=== PATIENT | male | born 1935 | race Caucasian/White ===

== ENCOUNTER 2016-08-19 19:21 | Inpatient (IN) | payer MEDICARE, OTHER ==
[2016-08-19] VITALS (18 sets, daily range): BP systolic 137–200; BP diastolic 63–100; PULSE 82–94; RESP 12–24; TEMP 97.9; O2SAT 93–100
[~2016-08-19] VITALS: Ht 182.9 cm; Wt 74.8 kg
[~2016-08-19 19:21] MED LIST: AMIO200T PO; ASPI325T PO; ATOR20TA42 PO; AVOD0.5C PO; CAPT12.52 PO; CENTTAB9; SYNT112T PO
[2016-08-19] MEDS ORDERED: SODIUM CHLOR 0.9% 1000 ML INJ 1,000 ML IV ONE (19:26)
[2016-08-19] MEDS ORDERED: MISCELLANEOUS NURSING INFORMATION XX PRN (19:30)
[2016-08-19] MEDS ORDERED: ALTEPLASE BOLUS 9 MG/9 ML SYR IV ONE (19:30)
[2016-08-19] MEDS ORDERED: SODIUM CHLORIDE 0.9% 50 ML BAG IVF ONE (19:30)
[2016-08-19] MEDS ORDERED: ONDANSETRON HCL 4 MG/2 ML VIAL ONE ×2 (19:38→22:34)
--- NOTE | 2016-08-19 19:40 | RADRPT ---
EXAM DATE/TIME: 08/19/2016 19:31 This report includes an Addendum and supersedes previous reports for this exam. [facility] COMPARISON: No previous studies available for comparison. INDICATIONS : Stroke alert; RADIATION DOSE: 50.04 CTDIvol (mGy) This report was called by Dr. Bernard to Dr. Morales at 7: 35 PM on August 19, 2016. MEDICAL HISTORY : Non-responsive. SURGICAL HISTORY : Non-responsive. ENCOUNTER: Initial ACUITY: 1 day PAIN SCALE: Non-responsive LOCATION: cranial TECHNIQUE: Multiple contiguous axial images were obtained of the head. Using automated exposure control and adj ustment of the mA and/or kV according to patient size, radiation dose was kept as low as reasonably a chievable to obtain optimal diagnostic quality images. FINDINGS: There are calcifications of the internal carotid, distal vertebral and bilateral middle cerebral mckenna win. There is mild atrophy. No signs of acute infarct, intracranial hemorrhage, or mass. Remote righ t caudate lacunar infarct. No fractures are seen. There is what appears to represent prominent callus formation and a somewhat destructive appearance of the right mandibular angle. Is there a history of remote trauma? Patchy white matter disease is present, nonacute in appearance. CONCLUSION: No signs of acute infarct, hemorrhage or mass. Abnormal right mandible as described above. Celestine Bernard MD on August 19, 2016 at 19:35 Board Certified Radiologist. This report was verified electronically. ADDENDUM: On further review there is increased attenuation at the level of the right middle cerebral artery in addition to the vascular calcification which can reflect hyperdense thrombus, a CT angiogram is pendi ng. Celestine Bernard MD on August 19, 2016 at 20:23 Board Certified Radiologist. This report was verified electronically.
[2016-08-19] MEDS ORDERED: niCARdipine INJ 25 MG in SODIUM CHLOR 0.9% 250 ML INJ 250 ML IV SCH (19:45)
[2016-08-19] MEDS ORDERED: ALTEPLASE DRIP IV ONE (19:45)
[2016-08-19 19:47] LABS: I-STAT POTASSIUM 3.9 MMOL/L (3.5-4.9)
[2016-08-19 19:49] LABS: AUTOMATED NEUTROPHIL # 2.5 TH/MM3 (1.8-7.7); BASOPHIL % 0.5 % (0.0-2.0); EOSINOPHIL # 0.3 TH/MM3 (0-0.4); EOSINOPHIL % 7.1 % (0.0-4.0); HEMATOCRIT 40.2 % (39.0-51.0); HEMO FLAGS DIFF FINAL; LYMPH % 29.6 % (9.0-44.0); LYMPHOCYTE # 1.4 TH/MM3 (1.0-4.8); MEAN CORPUSCULAR HEMOGLOBIN 32.5 PG (27.0-34.0); MEAN CORPUSCULAR HGB CONC 34.6 % (32.0-36.0); MONO % 10.4 % (0.0-8.0); NEUT % 52.4 % (16.0-70.0); PLATELET COUNT 144 TH/MM3 (150-450); RED BLOOD COUNT 4.27 MIL/MM3 (4.50-5.90); RED CELL DISTRIBUTION WIDTH 13.6 % (11.6-17.2); WHITE BLOOD COUNT 4.8 TH/MM3 (4.0-11.0)
[2016-08-19 19:51] LABS: APTT (PATIENT) 26.4 SEC (24.3-30.1); PROTHROMBIN TIME - PATIENT 11.4 SEC (9.8-11.6)
[2016-08-19] MEDS: SODIUM CHLOR 0.9% 1000 ML INJ 1,000 ML IV SCH ×2 (20:00→23:04)
--- NOTE | 2016-08-19 20:03 | PD ---
HPI Chief Complaint: Stroke Alert Time Seen by Provider: 19:26 Travel History International Travel<30 days: No Contact w/Intl Traveler<30days: No History of Present Illness HPI The patient is a 81-year-old I's by EMS. Approximately 1 hour prior to ER arrival the patient experienced a sudden onset of weakness in the left arm and leg. He fell to the ground. He was able to call his son who called EMS. On scene EMS observed paralysis in the left arm with dysarthria. Vital signs were observed to be approximately 160/80 with a pulse of approximately 100. Fingerstick glucose was normal. No change in neurologic status was observed en route. Upon arrival to the ER the CT scan was obtained and risks benefits stories about was menstruation were discussed with patient as well as four family members. The patient denies chest pain in the ER. He did have one episode of vomiting was promptly suctioned and the oropharynx was cleared with resolution of nausea and reported subjective improvement. The patient denies chest pain. PFSH Past Medical History Arthritis: No Asthma: No Atrial Fibrillation: Yes Autoimmune Disease: No Blood Disorders: No Heart Rhythm Problems: No Cancer: No Cardiac Catheterization: Yes (JANUARY 1997) Cardiovascular Problems: Yes High Cholesterol: Yes Chemotherapy: No Chest Pain: No Congestive Heart Failure: No COPD: No Cerebrovascular Accident: No Diabetes: Yes Diminished Hearing: No Endocrine: No GERD: No Glaucoma: No Genitourinary: No Headaches: No Hepatitis: No Hiatal Hernia: No Hypertension: Yes Immune Disorder: No Kidney Stones: No Musculoskeletal: No Neurologic: No Psychiatric: No Reproductive: No Respiratory: No Immunizations Current: No Migraines: No Myocardial Infarction: Yes (X 2) Radiation Therapy: No Renal Failure: No Seizures: No Sickle Cell Disease: No Sleep Apnea: No Thyroid Disease: No Ulcer: No Past Surgical History Abdominal Surgery: No AICD: No Appendectomy: No Arteriovenous Shunt: No Cardiac Surgery: Yes Cholecystectomy: Yes Coronary Stent: Yes (X 24 JANUARY 1997) Ear Surgery: No Endocrine Surgery: No Eye Surgery: No Genitourinary Surgery: No Insulin Pump: No Joint Replacement: No Oral Surgery: No Pacemaker: No Thoracic Surgery: No Other Surgery: Yes Social History Alcohol Use: No Tobacco Use: No Substance Use: No Allergies-Medications (Allergen,Severity, Reaction): Coded Allergies: No Known Allergies (Verified , 12/2/13) Reported Meds & Prescriptions Reported Meds & Active Scripts Active Reported Aspirin 325 Mg Tab (Aspirin) 325 Mg Tab 325 Mg PO DAILY Synthroid (Levothyroxine Sodium) 112 Mcg Tab 112 Mcg PO DAILY TAKE ON AN EMPTY STOMACH Amiodarone Hcl (Amiodarone HCl) 200 Mg Tab 100 Mg PO DAILY Avodart (Dutasteride) 0.5 Mg Cap 0.5 Mg PO 3 TIMES A WEEK Centrum (Multivitamins) Tab Lipitor (Atorvastatin Calcium) 20 Mg Tab 20 Mg PO DAILY Capoten (Captopril) 12.5 Mg Tab 12.5 Mg PO DAILY Review of Systems ROS Limitations: Clinical Condition, Altered Mental Status Physical Exam Narrative GENERAL: 81-year-old male well-nourished well-developed SKIN: Warm and dry. HEAD: Atraumatic. Normocephalic. EYES: Pupils equal and round. No scleral icterus. No injection or drainage. ENT: No nasal bleeding or discharge. Mucous membranes pink and moist. Edentulous. NECK: Trachea midline. No JVD. CARDIOVASCULAR: Regular rate and rhythm. No murmur appreciated. RESPIRATORY: No accessory muscle use. Clear to auscultation. Breath sounds equal bilaterally. GASTROINTESTINAL: Abdomen soft, non-tender, nondistended. Hepatic and splenic margins not palpable. MUSCULOSKELETAL: No obvious deformities. No clubbing. No cyanosis. No edema. NEUROLOGICAL: NIHSS approximately 13. LUE flaccid. LUE with loss of sensation. RUE/RLE normal sensory motor function. Mild cerebellar ataxia on finger to nose exam. Mild slurring of speech. Mild aphasia. PSYCHIATRIC: Appropriate mood and affect; insight and judgment normal. Data Data Last Documented VS Vital Signs Date Time Temp Pulse Resp B/P Pulse Ox O2 Delivery O2 Flow Rate FiO2 08/19/16 19:48 100 Nasal Cannula 2.00 08/19/16 19:25 97.9 84 20 191/88 Orders Diet Npo (08/20/16 Breakfast) Activity Bed Rest (08/19/16 ) Electrocardiogram (08/19/16 ) I-Stat Creatinine (08/19/16 19:26) I-Stat Profile (08/19/16 19:26) Prothrombin Time / Inr (Pt) (08/19/16 19:26) Act Partial Throm Time (Ptt) (08/19/16 19:26) Complete Blood Count With Diff (08/19/16 19:26) Fibrinogen (08/19/16 19:26) Creatine Kinase (Cpk) (08/19/16 19:26) Troponin I (08/19/16 19:) Ua Includes Microscopic (08/19/16 19:26) Drug Screen, Random Urine (08/19/16 19:26) Type And Screen (08/19/16 19:) Ct Brain W/O Iv Contrast(Rout) (08/19/16 ) Chest, Single Ap (08/19/16 ) Consult Neurology (08/19/16 ) Blood Glucose (08/19/16 19:26) Ecg Monitoring (08/19/16:) Neuro Checks Q2HX12,Q4H (08/19/16 19:26) Nursing Bedside Swallow Assess .ONCE (08/19/16 19:26) Iv Access Insert/Monitor (08/19/16 19:26) NPO (08/19/16:) Oximetry (08/19/16:) Oxygen Administration (08/19/16:26) Sodium Chlor 0.9% 1000 Ml Inj (Ns 1000 M (08/19/16 19:26) Resp Oxygen Mendoza C Titrat 1-4 L (08/19/16:26) Cath For Specimen (08/19/16:) ^ Call Pharmacy (08/19/16 19:30) Nih Stroke Scale - Nihss .ONCE (08/19/16 19:30) Urinary Catheter Management SHERRELL.Q8H (08/19/16 19:30) Urinary Catheter Insert/Apply (08/19/16 19:30) ^ Anticoagulant Alert (08/19/16 19:30) ^ Post Infusion Restrictions (08/19/16 19:30) ^ Medication Alert (08/19/16 19:30) Vital Signs (Adult) .As directed (08/19/16 19:30) ^ Notify Dr: Blood Pressure (08/19/16 19:30) ^ Medication Alert (08/19/16 19:30) Alteplase Bolus (Activase Bolus) (08/19/16 19:30) Alteplase Drip (Activase Drip) (08/19/16 19:45) Sodium Chloride 0.9% Inj (Ns Inj) (12/28/16 19:30) Misc Nursing Information (08/19/16 19:30) Resp Oxygen Mendoza C Titrat 1-4 L (08/19/16 ) Ct Brain W/O Iv Contrast(Rout) (08/20/16 ) Nicardipine Inj (Cardene Inj) (08/19/16 19:45) Nicardipine Inj (Cardene Inj) (08/19/16 19:34) Ondansetron Inj (Zofran Inj) (08/19/16 19:38) Westergren Sedimentation Rate (08/19/16 20:02) Thyroid Stimulating Hormone (08/19/16 20:02) Free Thyroxine (T4) (08/19/16 20:02) Vitamin B12 (08/19/16 20:02) Ast (Sgot) (08/19/16 20:02) Alt (Sgpt) (08/19/16 20:02) Mri Brain W&W/O Contrast (08/19/16 20:02) Echo 2d Comp W/Dopp(Routine) (08/19/16 20:02) Holter Monitor Recording (08/19/16 20:02) ^ Narrow Fabric Loom Fixer / Telemetry (08/19/16 20:02) Sodium Chlor 0.9% 1000 Ml Inj (Ns 1000 M (08/19/16 20:00) Lipid Profile (08/19/16 20:02) ^ Other Nursing Orders (08/19/16 20:02) Cta Brain W Iv Contrast W 3d (08/19/16 20:02) Cta Neck W Iv Contrast W 3d (08/19/16 20:02) Folate, Serum (08/19/16 20:02) [place] (08/19/16 20:02) Iohexol 350 Inj (Omnipaque 350 Inj) (08/19/16 20:20) Admit Order (Ed Use Only) (08/19/16 20:21) Labs Laboratory Tests Test 08/19/16 08/19/16 19:24 19:50 White Blood Count 4.8 TH/MM3 Red Blood Count 4.27 MIL/MM3 Hemoglobin 13.9 GM/DL Bedside Hemoglobin 12.6 G/DL Hematocrit 40.2 % Bedside Hematocrit 37.0 % Mean Corpuscular Volume 94.0 FL Mean Corpuscular Hemoglobin 32.5 PG Mean Corpuscular Hemoglobin 34.6 % Concent Red Cell Distribution Width 13.6 % Platelet Count 144 TH/MM3 Mean Platelet Volume 8.2 FL Neutrophils (%) (Auto) 52.4 % Lymphocytes (%) (Auto) 29.6 % Monocytes (%) (Auto) 10.4 % Eosinophils (%) (Auto) 7.1 % Basophils (%) (Auto) 0.5 % Neutrophils # (Auto) 2.5 TH/MM3 Lymphocytes # (Auto) 1.4 TH/MM3 Monocytes # (Auto) 0.5 TH/MM3 Eosinophils # (Auto) 0.3 TH/MM3 Basophils # (Auto) 0.0 TH/MM3 CBC Comment DIFF FINAL Differential Comment Prothrombin Time 11.4 SEC Prothromb Time International 1.0 RATIO Ratio Activated Partial 26.4 SEC Thromboplast Time Fibrinogen 275 mg/dL Bedside Sodium 139 MMOL/L Bedside Potassium 3.9 MMOL/L Bedside Chloride 104 MMOL/L Bedside Blood Urea Nitrogen 15 MG/DL Bedside Creatinine 0.8 MG/DL Bedside Glucose 112 MG/DL Total Creatine Kinase 81 U/L Troponin I 0.03 NG/ML Blood Type AB POSITIVE Antibody Screen NEGATIVE Urine Color YELLOW Urine Turbidity CLEAR Urine pH 5.5 Urine Specific [place] 1.014 Urine Protein NEG mg/dL Urine Glucose (UA) NEG mg/dL Urine Ketones NEG mg/dL Urine Occult Blood NEG Urine Nitrite NEG Urine Bilirubin NEG Urine Urobilinogen LESS THAN 2.0 MG/DL Urine Leukocyte Esterase NEG Urine RBC 1 /hpf Urine WBC 1 /hpf Urine Bacteria RARE /hpf Urine Mucus FEW /lpf Microscopic Urinalysis Comment Urine Opiates Screen NEG Urine Barbiturates Screen NEG Urine Amphetamines Screen NEG Urine Benzodiazepines Screen NEG Urine Cocaine Screen NEG Urine Cannabinoids Screen NEG MDM Medical Screen Exam Complete: Yes Emergency Medical Condition: Yes Medical Record Reviewed: Yes EKG Prior to Arrival: Yes Differential Diagnosis Intracranial hemorrhage, ischemic stroke, hypoglycemia, intracranial mass, seizure, altered mental status due to metabolic disorder or infectious state Narrative Course The patient received TPA at approximately 7:45 PM. His NIH stroke scale based on my estimation is approximately 13. We had a discussion with the grandson and daughter as well as the patient's son and daughter. The risks benefits and alternatives of alteplase administration were discussed. The contraindication list was completed with the help of the daughter and grandson. Upon return from the CT scan room the patient had slightly improved articulation however a persistent left upper extremity paralysis and loss of sensation remained. The family members verbalized understanding of risks benefits and alternatives of alteplase administration. Cardene drip was initiated and blood pressure was within acceptable parameters at time of alteplase of administration. Dr. Bernard arrived in the patient's room at approximately 7:45 PM. The patient was monitored closely in the ER. He'll be admitted to the ICU for continuous monitoring. D/w Dr Flores for expansion envelope maker hand service. Critical Care Narrative Aggregate critical care time was 35 minutes. Time to perform other separately billable procedures was not included in the critical care time. My time did not include minutes spent treating any other patients simultaneously or on activities that did not directly contribute to the patient's treatment. The services I provided to this patient were to treat and/or prevent clinically significant deterioration that could result in: Permanent neurologic injury, uninformed consent, cardiopulmonary arrest I provided critical care services requiring my management, as noted below: Chart data review, documentation time, medication orders and management, vital sign assessments/reviewing monitor data, ordering and reviewing lab tests, ordering and interpreting/reviewing x-rays and diagnostic studies, care of the patient and discussion of the patient with the admitting physicians. Stroke Alert NIHSS NIH Stroke Scale Result: 13 NIHSS Time Completed: 19:[address] Phys[address] Communication [address] Bernard 726pm Diagnosis Diagnosis: Primary Impression: Stroke Qualified Code: I63.9 - Cerebrovascular accident (CVA), unspecified mechanism Admitting Physician Requests: Hang Martínez MD Aug 19, 2016 20:03
--- NOTE | 2016-08-19 20:09 | RADRPT ---
EXAM DATE/TIME: 08/19/2016 19:56 [facility] COMPARISON: No previous studies available for comparison. INDICATIONS : Stroke alert MEDICAL HISTORY : Prostate cancer, A fib SURGICAL HISTORY : Stent ENCOUNTER: Initial ACUITY: 1 day PAIN SCORE: Non-responsive. LOCATION: Bilateral chest FINDINGS: Cardiomegaly. No consolidation or effusion. Osseous structures are intact. CONCLUSION: No acute disease. Celestine Bernard MD on August 19, 2016 at 20:07 Board Certified Radiologist. This report was verified electronically.
[2016-08-19 20:14] LABS: BACTERIA, URINE RARE /hpf; BLOOD, URINE NEG (NEG); GLUCOSE,URINE NEG (NEG); KETONE, URINE NEG (NEG); MUCUS URINE FEW /lpf (OCC); NITRITE,URINE NEG (NEG); PH, URINE 5.5 (5.0-8.5); URINE COLOR YELLOW (YELLW/STRAW)
[2016-08-19 20:19] LABS: AMPHETAMINE, URINE NEG (NEG); BARBITURATES, URINE NEG (NEG); COCAINE, URINE NEG (NEG)
[2016-08-19] MEDS ORDERED: IOHEXOL 350 MG/ML 10 ML VIAL (for RAD DIAG) IV ONE (20:20)
--- NOTE | 2016-08-19 20:27 | MB ---
cc: ADARSH CAST DATE OF CONSULTATION 08/19/2016 REASON FOR CONSULTATION An 81-year-old right-handed man with a history of hypertension, hypercholesterolemia, prostate cancer with mets to the bones, cardiac stent, A fib, status post cardioversion, takes 325 aspirin a day, hypothyroidism. At about 06:30 today he evidently fell. He was brought into the ER as a stroke alert and found to be flaccid on the left arm with eyes deviation to the right and subsequently CT was read as negative for bleed and was given TPA here. I had talked to the ER physician over the phone and we agreed to go ahead and give tPA. No major contraindications were noted. Sinus rhythm is his EKG here. REVIEW OF SYSTEMS He denies any diabetes, CABG, renal, hepatic, pulmonary disease lupus, ulcer, seizure, prior stroke. SOCIAL HISTORY Not a smoker or drinker. He lives by himself. He usually drives. Pretty independent, quite sharp mentally. FAMILY HISTORY Negative for cancer, seizure or stroke. MEDICATIONS He takes 325 of aspirin a day. Other medications: Padding a list at this time. 1. Synthroid. 2. Amiodarone. 3. Avodart. 4. Centrum. 5. Lipitor. 6. Capoten. PHYSICAL EXAMINATION VITAL SIGNS: He is in sinus rhythm, 99. After being given blood pressure meds here he is 168/80. He was as high as 200. NECK: There were no carotid bruits. HEART: Regular rhythm at this time. I do not detect a murmur. NEUROLOGIC: Pupils are equal. He has a slight eye deviation over to the right. He has got a left homonymous hemianopsia. Face has a mall left facial droop with decreased sensation. Tongue midline. He had normal strength in the right upper and right lower extremity. Left lower extremity is about a 3/5. Left upper extremity is 0/5, it is flaccid. Toes upgoing on the left, downgoing on the right. He has got a left kalin sensory loss. He can name and show me his right thumb well. Follows commands well. He gives a good history. LABORATORY DATA His i-STAT CBC is normal. Basic metabolic profile is normal. Coags are normal. IMAGING CT scan of the brain was done, he has an abnormality in the right mandible, prominent callus formation in the angle. IMPRESSION Right MCA infarct. He has been given tPA. Protocol has been started. We will do a CTA of his neck and [place]. I note there is some calcification in the right MCA region and maybe have a hyperdense sign in the right MCA. ADDENDUM His NIH stroke scale is 12. MD CYNTHIA Soler/ISRAEL /8:01 PM /9:32 AM
--- NOTE | 2016-08-19 20:42 | RADRPT ---
EXAM DATE/TIME: 08/19/2016 20:15 [facility] COMPARISON: CT BRAIN W/O CONTRAST, August 19, 2016, 19:31. INDICATIONS : Stroke, altered mental status. TPA given. IV CONTRAST: 98 cc Omnipaque 350 (iohexol) IV ; Cumulative dose for multiple exams. RADIATION DOSE: 28.69 CTDIvol (mGy) ; Combined studies MEDICAL HISTORY : Hypertension. SURGICAL HISTORY : None. ENCOUNTER: Subsequent ACUITY: 1 day PAIN SCALE: Non-responsive LOCATION: cranial TECHNIQUE: Volumetric scanning was performed using a multi-row detector CT scanner. The data was post processed with a variety of visualization algorithms including full volume maximum intensity projection, multi -planar sliding thin slab reformation, curved planar reformation, and surface rendering techniques. Using automated exposure control and adjustment of the mA and/or kV according to patient size, radiat ion dose was kept as low as reasonably achievable to obtain optimal diagnostic quality images. FINDINGS: The examination demonstrates the basilar artery and distal vertebral arteries, left and right interna l carotid arteries and left middle cerebral artery to be widely patent. Anterior cerebral arteries ar e patent. There is a focal filling defect present within the right middle cerebral artery M1 segment extending 8.6 mm in transverse dimension. There is decreased flow distal to this point., The left sub clavian, left common carotid and brachiocephalic artery origins are widely patent. The vertebral mckenna ry origins are widely patent. There is moderate calcific plaquing at the right carotid bifurcation an d severe stenosis of the left proximal internal carotid artery suspected secondary to soft plaque dep osition. CONCLUSION: Filling defect within the right middle cerebral artery as described above consistent with thrombus. Extensive atherosclerotic disease. Interventional team aware of these findings at the time of study c ompletion 8:30 p.m. August 19, 2016 . Celestine Bernard MD on August 19, 2016 at 20:36 Board Certified Radiologist. This report was verified electronically.
--- NOTE | 2016-08-19 21:17 | RADRPT ---
EXAM DATE/TIME: 08/19/2016 20:15 [facility] COMPARISON: CTA BRAIN W 3D RECON, August 19, 2016, 20:15. INDICATIONS : Stroke, altered mental status. TPA given. IV CONTRAST: 98 cc Omnipaque 350 (iohexol) IV ; Cumulative dose for multiple exams. RADIATION DOSE: 28.69 CTDIvol (mGy) ; Combined studies MEDICAL HISTORY : Hypertension. SURGICAL HISTORY : None. ENCOUNTER: Subsequent ACUITY: 1 day PAIN SCALE: Non-responsive LOCATION: Left cranial TECHNIQUE: Volumetric scanning was performed using a multirow detector CT scanner. The data was post processed with a variety of visualization algorithms including full-volume maximum intensity projection, multip lanar sliding thin-slab reformation, curved-planar reformation, and surface-rendering techniques. Us ing automated exposure control and adjustment of the mA and/or kV according to patient size, radiatio n dose was kept as low as reasonably achievable to obtain optimal diagnostic quality images. FINDINGS: There is atherosclerotic plaquing of the aortic arch and at the origin of the left subclavian artery which is widely patent as well as the left common carotid brachiocephalic arteries. There is moderate atherosclerotic plaquing of the right carotid bulb and proximal internal carotid artery on the order of 57% by NASCET criteria. There is moderate to severe atherosclerotic plaquing the proximal left in ternal carotid artery of 76 % by NASCET criteria.. The vertebral arteries are widely patent. A fillin g defect is present within the right middle cerebral artery M1 segment. CONCLUSION: Hemodynamically significant stenosis of the left internal carotid artery as described above. Occlusiv e filling defect within the right middle cerebral artery as noted previously. Celestine Bernard MD on August 19, 2016 at 21:12 Board Certified Radiologist. This report was verified electronically.
[2016-08-19] MEDS ORDERED: DUTA1CAP2 PO (21:20)
[2016-08-19] MEDS ORDERED: METO25TA3 PO (21:20)
[2016-08-19] MEDS ORDERED: LEVO100T5 PO (21:20)
[2016-08-19] MEDS ORDERED: CAPT12.52 PO (21:20)
[2016-08-19] MEDS ORDERED: MULT1TAB78 PO (21:20)
[2016-08-19] MEDS ORDERED: ATOR10TA15 PO (21:20)
[2016-08-19] MEDS ORDERED: CALCTAB11 PO (21:20)
[2016-08-19 21:21] LABS: ALT (GPT) 35 U/L (12-78); AST (GOT) 36 U/L (15-37); FREE T4 1.11 NG/DL (0.76-1.46); HDL CHOLESTEROL 26.2 MG/DL (40.0-60.0)
[2016-08-19] MEDS ORDERED: VERAPAMIL HCL 5 MG/2 ML VIAL ONE (21:21)
[2016-08-19] MEDS ORDERED: ASPI325T PO (21:23)
[2016-08-19] MEDS ORDERED: MIDAZOLAM HCL 5 MG/5 ML VIAL ONE (21:45)
[2016-08-19] MEDS ORDERED: fentaNYL CITRATE 250 MCG/5 ML AMP ONE (21:45)
[2016-08-19] MEDS ORDERED: ceFAZolin 2 GM PREMIX 50 ML ONE (23:14)
[2016-08-19] MEDS ORDERED: LABETALOL HCL 100 MG/20 ML VIAL IV PRN (23:15)
[2016-08-19] MEDS ORDERED: DEXTROSE 50% IN WATER 50 ML VIAL(D50) IV PUSH PRN (23:15)
[2016-08-19] MEDS ORDERED: SODIUM CHLORIDE 0.9% FLUSH 5 ML FLUSH IVF PRN (23:15)
[2016-08-19] MEDS ORDERED: GLUCAGON 1 MG/ML VIAL IM/SQ PRN (23:15)
[2016-08-19] MEDS ORDERED: HEPARIN SODIUM - IV 10,000 UNITS/10 ML VIAL ONE (23:17)
--- NOTE | 2016-08-19 23:28 | PD.RAD ---
Post Procedure Progress Note Pre Procedure Diagnosis: (1) Stroke Post Procedure Diagnosis: (1) Stroke Procedure Date: Aug 19, 2016 Supervising Radiologist: Eldon Abreu JR Proceduralist/Assist: Angela Sanchez, RT(R)(CV), Shirley Landon RT(R)() Anesthesia: Conscious Sedation Plan of Activity Patient to Unit: Critical Care Patient Condition: Fair See PACS Report for procedural detail/treatment Vascular-Arterial Procedure Procedure 1 Procedure Site: Cerebral Procedure(s): Angiogram, Embolectomy Access Access Site(s): Right Femoral Artery Closure Site(s): Right vascular closure device Findings: Cerebral angiogram shows complete occlusion of the right M1. Mechanical thrombectomy was successful with re-establishment of flow thru the previously occluded segment. Angioseal closure device utilized at access site. Plan To ICU. Jr. Brady,Eldon Capone MD Aug 19, 2016 23:28
[2016-08-19] MEDS ORDERED: IODIXANOL 320 MG/ML 50 ML VIAL (for RAD SPEC) I-ARTERIAL ONE (23:53)
[2016-08-20] VITALS (15 sets, daily range): BP systolic 129–170; BP diastolic 62–77; PULSE 76–100; RESP 14–23; TEMP 96.3–98.6; O2SAT 95–98
--- NOTE | 2016-08-20 00:54 | HHI.HP ---
HPI Service Critical Care Medicine Primary Care Physician Unknown Admission Diagnosis Stroke Alert Diagnosis: Travel History International Travel<30 Days: No Contact w/Intl Traveler <30 Da: No Traveled to Known Affected Are: No History of Present Illness The patient is a 81-year-old I's by EMS. Approximately 1 hour prior to ER arrival the patient experienced a sudden onset of weakness in the left arm and leg. He fell to the ground. He was able to call his son who called EMS. On scene EMS observed paralysis in the left arm with dysarthria. Vital signs were observed to be approximately 160/80 with a pulse of approximately 100. Fingerstick glucose was normal. No change in neurologic status was observed en route. Upon arrival to the ER the CBrain was negative for bleed and patient was given IV TPA after being evaluated by Dr. Bernard from neurology. Subsequently he was taken to interventional radiology and underwent mechanical thrombectomy of occluded right M1. Following this patient was transferred to [facility] where I evaluated him on arrival. At the time of my evaluation patient was laying flat in bed and did not appear to be in any acute distress. He was still having speech difficulty however couldn't verbalize. He continued to have left upper and lower extremity weakness. History PFSH Past Medical History Arthritis: No Asthma: No Atrial Fibrillation: Yes Autoimmune Disease: No Blood Disorders: No Heart Rhythm Problems: No Cancer: No Cardiac Catheterization: Yes (JANUARY 1997) Cardiovascular Problems: Yes High Cholesterol: Yes Chemotherapy: No Chest Pain: No Congestive Heart Failure: No COPD: No Cerebrovascular Accident: No Diabetes: Yes Diminished Hearing: No Endocrine: No GERD: No Glaucoma: No Genitourinary: No Headaches: No Hepatitis: No Hiatal Hernia: No Hypertension: Yes Immune Disorder: No Kidney Stones: No Musculoskeletal: No Neurologic: No Psychiatric: No Reproductive: No Respiratory: No Immunizations Current: No Migraines: No Myocardial Infarction: Yes (X 2) Radiation Therapy: No Renal Failure: No Seizures: No Sickle Cell Disease: No Sleep Apnea: No Thyroid Disease: No Ulcer: No Past Surgical History Abdominal Surgery: No AICD: No Appendectomy: No Arteriovenous Shunt: No Cardiac Surgery: Yes Cholecystectomy: Yes Coronary Stent: Yes (X 24 JANUARY 1997) Ear Surgery: No Endocrine Surgery: No Eye Surgery: No Genitourinary Surgery: No Insulin Pump: No Joint Replacement: No Oral Surgery: No Pacemaker: No Thoracic Surgery: No Other Surgery: Yes Social History Alcohol Use: No Tobacco Use: No Substance Use: No Allergies-Medications Allergies-Medications (Allergen,Severity, Reaction): Coded Allergies: No Known Allergies (Verified , 07/24/13) Reported Meds & Prescriptions Reported Meds & Active Scripts Active Reported Aspirin 325 Mg Tab (Aspirin) 325 Mg Tab 325 Mg PO DAILY Synthroid (Levothyroxine Sodium) 112 Mcg Tab 112 Mcg PO DAILY TAKE ON AN EMPTY STOMACH Amiodarone Hcl (Amiodarone HCl) 200 Mg Tab 100 Mg PO DAILY Avodart (Dutasteride) 0.5 Mg Cap 0.5 Mg PO 3 TIMES A WEEK Centrum (Multivitamins) Tab Lipitor (Atorvastatin Calcium) 20 Mg Tab 20 Mg PO DAILY Capoten (Captopril) 12.5 Mg Tab 12.5 Mg PO DAILY ROS Review of Systems ROS Limitations: Clinical Condition, Altered Mental Status Physical Exam Vital Signs Vital Signs Date Time Temp Pulse Resp B/P Pulse Ox O2 Delivery O2 Flow Rate FiO2 08/19/16 23:00 83 12 137/68 96 08/19/16 22:48 93 2.00 08/19/16 22:44 86 08/19/16 22:29 88 18 163/72 93 Nasal Cannula 2 08/19/16 22:00 84 12 151/75 95 08/19/16 21:30 17 98 Nasal Cannula 2 08/19/16 20:26 92 20 157/71 99 Nasal Cannula 3 08/19/16 20:21 92 20 148/68 100 Nasal Cannula 3 08/19/16 20:18 90 22 155/63 99 Nasal Cannula 3 08/19/16 20:15 92 20 183/80 100 Nasal Cannula 3 08/19/16 20:10 92 20 160/72 100 Nasal Cannula 3 08/19/16 20:05 84 20 153/67 100 Nasal Cannula 3 08/19/16 19:56 92 20 163/77 100 Nasal Cannula 3 08/19/16 19:52 91 20 163/76 98 Nasal Cannula 3 08/19/16 19:49 85 20 179/85 96 Nasal Cannula 3 08/19/16 19:48 100 Nasal Cannula 2.00 08/19/16 19:47 92 20 190/91 94 Nasal Cannula 3 08/19/16 19:42 94 24 197/89 100 Nasal Cannula 3 08/19/16 19:32 82 18 200/100 97 Nasal Cannula 3 08/19/16 19:25 95 Nasal Cannula 3 08/19/16 19:25 97.9 84 20 191/88 95 Physical Exam GENERAL: 81-year-old male well-nourished well-developed SKIN: Warm and dry. HEAD: Atraumatic. Normocephalic. EYES: Pupils equal and round. No scleral icterus. No injection or drainage. ENT: No nasal bleeding or discharge. Mucous membranes pink and moist. Edentulous. NECK: Trachea midline. No JVD. CARDIOVASCULAR: Regular rate and rhythm. No murmur appreciated. RESPIRATORY: No accessory muscle use. Clear to auscultation. Breath sounds equal bilaterally. GASTROINTESTINAL: Abdomen soft, non-tender, nondistended. Hepatic and splenic margins not palpable. MUSCULOSKELETAL: No obvious deformities. No clubbing. No cyanosis. No edema. NEUROLOGICAL: Awake alert oriented 3, LUE flaccid. LUE with loss of sensation. RUE/RLE normal sensory motor function. slurring of speech. Mild aphasia. Has very weak handgrip with left upper extremity and can wiggle toes and left lower extremity. Grade 5 power in right upper and lower extremity. PSYCHIATRIC: Appropriate mood and affect; insight and judgment normal. Laboratory Laboratory Tests Test 08/19/16 08/19/16 19:24 19:50 White Blood Count 4.8 Red Blood Count 4.27 Hemoglobin 13.9 Bedside Hemoglobin 12.6 Hematocrit 40.2 Bedside Hematocrit 37.0 Mean Corpuscular Volume 94.0 Mean Corpuscular Hemoglobin 32.5 Mean Corpuscular Hemoglobin 34.6 Concent Red Cell Distribution Width 13.6 Platelet Count 144 Mean Platelet Volume 8.2 Neutrophils (%) (Auto) 52.4 Lymphocytes (%) (Auto) 29.6 Monocytes (%) (Auto) 10.4 Eosinophils (%) (Auto) 7.1 Basophils (%) (Auto) 0.5 Neutrophils # (Auto) 2.5 Lymphocytes # (Auto) 1.4 Monocytes # (Auto) 0.5 Eosinophils # (Auto) 0.3 Basophils # (Auto) 0.0 CBC Comment DIFF FINAL Differential Comment Erythrocyte Sedimentation Rate 13 Prothrombin Time 11.4 Prothromb Time International 1.0 Ratio Activated Partial 26.4 Thromboplast Time Fibrinogen 275 Bedside Sodium 139 Bedside Potassium 3.9 Bedside Chloride 104 Bedside Blood Urea Nitrogen 15 Bedside Creatinine 0.8 Bedside Glucose 112 Aspartate Amino Transf 36 (AST/SGOT) Alanine Aminotransferase 35 (ALT/SGPT) Total Creatine Kinase 81 Troponin I 0.03 Triglycerides Level 419 Cholesterol Level 151 LDL Cholesterol HDL Cholesterol 26.2 Cholesterol/HDL Ratio 5.76 Folate GREATER THAN 20.0 Free Thyroxine 1.11 Thyroid Stimulating Hormone 2.760 3rd Gen Blood Type AB POSITIVE Antibody Screen NEGATIVE Urine Color YELLOW Urine Turbidity CLEAR Urine pH 5.5 Urine Specific [place] 1.014 Urine Protein NEG Urine Glucose (UA) NEG Urine Ketones NEG Urine Occult Blood NEG Urine Nitrite NEG Urine Bilirubin NEG Urine Urobilinogen LESS THAN 2.0 Urine Leukocyte Esterase NEG Urine RBC 1 Urine WBC 1 Urine Bacteria RARE Urine Mucus FEW Microscopic Urinalysis Comment Urine Opiates Screen NEG Urine Barbiturates Screen NEG Urine Amphetamines Screen NEG Urine Benzodiazepines Screen NEG Urine Cocaine Screen NEG Urine Cannabinoids Screen NEG Result Diagram: 08/19/161923 Imaging Last Impressions Neck CTA 08/19/162001 Signed Impressions: Service Date/Time: Friday, August 19, 2016 20:15 - CONCLUSION: Hemodynamically significant stenosis of the left internal carotid artery as described above. Occlusive filling defect within the right middle cerebral artery as noted previously. Celestine Bernard MD Head CTA 08/19/162001 Signed Impressions: Service Date/Time: Friday, August 19, 2016 20:15 - CONCLUSION: Filling defect within the right middle cerebral artery as described above consistent with thrombus. Extensive atherosclerotic disease. Interventional team aware of these findings at the time of study completion 8:30 p.m. August 19, 2016 . Celestine Bernard MD Head CT 08/19/16 0000 Signed Impressions: Service Date/Time: Friday, August 19, 2016 19:31 - CONCLUSION: No signs of acute infarct, hemorrhage or mass. Abnormal right mandible as described above. Celestine Bernard MD ADDENDUM: On further review there is increased attenuation at the level of the right middle cerebral artery in addition to the vascular calcification which can reflect hyperdense thrombus, a CT angiogram is pending. Celestine Bernard MD Chest X-Ray 08/19/16 0000 Signed Impressions: Service Date/Time: Friday, August 19, 2016 19:56 - CONCLUSION: No acute disease. Celestine Bernard MD Assessment and Plan Assessment and Plan 81-year-old male with: Ischemic stroke with left hemiparesis status post IV TPA followed by mechanical thrombectomy of right M1 segment Hypertension History of A. fib Hyperlipidemia Plan: Neuro: Continue neuro checks per protocol. Status post IV TPA followed by mechanical thrombectomy by interventional radiology. Being followed by Dr. Bernard from neurology. Repeat neuro imaging per Dr. Bernard. Cardiovascular: Labetalol when necessary to keep SBP less than 180 mmHg. Pulmonary: Supplemental O2 as needed. Protecting airway currently. If neurologic status worsens may require intubation for airway protection GI/liver: Nothing by mouth for now. Speech and swallow evaluation. Advance by mouth diet tomorrow if neurologic status permits. /renal: IV hydration, strict intake output, monitor and replete electro lites , follow BUN/creatinine. ID: No antibiotics indicated at this time. Heme: Follow CBC Endocrine: Watch for hyperglycemia, SSI for glycemic control if needed. Prophylaxis: SCDs. Start subcutaneous Lovenox when okay with neurology. Discussed with patient and his sons at bedside. Condition critical. Time spent on critical care excluding procedures 40 minutes Louie Flores MD Aug 20, 2016 00:54
[2016-08-20] MEDS: SODIUM CHLOR 0.9% 1000 ML INJ 1,000 ML IV SCH ×2 (02:59→13:22)
[2016-08-20] MEDS: INSULIN ASPART SUPPLEMENTAL SCALE SQ SCH ×4 (07:00→21:00)
--- NOTE | 2016-08-20 08:04 | HHI.PR ---
Subjective Remarks 110-170/ Objective Vital Signs Date Time Temp Pulse Resp B/P Pulse Ox O2 Delivery O2 Flow Rate FiO2 08/20/16 06:00 82 08/20/16 04:00 97.6 77 16 136/62 97 08/20/16 04:00 77 08/20/16 02:00 98 Nasal Cannula 2.00 08/20/16 00:30 77 08/20/16 00:00 96.3 90 14 170/77 98 08/19/16 23:00 83 12 137/68 96 08/19/16 22:48 93 2.00 08/19/16 22:44 86 08/19/16 22:29 88 18 163/72 93 Nasal Cannula 2 08/19/16 22:00 84 12 151/75 95 08/19/16 21:30 17 98 Nasal Cannula 2 08/19/16 20:26 92 20 157/71 99 Nasal Cannula 3 08/19/16 20:21 92 20 148/68 100 Nasal Cannula 3 08/19/16 20:18 90 22 155/63 99 Nasal Cannula 3 08/19/16 20:15 92 20 183/80 100 Nasal Cannula 3 08/19/16 20:10 92 20 160/72 100 Nasal Cannula 3 08/19/16 20:05 84 20 153/67 100 Nasal Cannula 3 08/19/16 19:56 92 20 163/77 100 Nasal Cannula 3 08/19/16 19:52 91 20 163/76 98 Nasal Cannula 3 08/19/16 19:49 85 20 179/85 96 Nasal Cannula 3 08/19/16 19:48 100 Nasal Cannula 2.00 08/19/16 19:47 92 20 190/91 94 Nasal Cannula 3 08/19/16 19:42 94 24 197/89 100 Nasal Cannula 3 08/19/16 19:32 82 18 200/100 97 Nasal Cannula 3 08/19/16 19:25 95 Nasal Cannula 3 08/19/16 19:25 97.9 84 20 191/88 95 I/O 08/19/16 08/19/16 08/19/16 08/20/16 08/20/16 08/20/16 07:00 15:00 23:00 07:00 15:00 23:00 Intake Total 164 ml 547 ml Output Total 800 ml Balance 164 ml -253 ml Intake IV Total 164 ml 547 ml Output Urine Total 800 ml # Bowel Movements 0 Result Diagram: 08/19/161923 Other Results 75% left ica Objective Remarks awake speech clearer moves r well counts finger to left but has left visual and sensory neglect 3/5 lue and lle Assessment and Plan Assessment and Plan imp improved after embolectomy check mri/a this am keep hob down bp up he tends to run low, with ivf swallow eval some impediment there i saul nurse and son Marco Antonio,Morales Puri MD Aug 20, 2016 08:03
[2016-08-20] MEDS: SODIUM CHLORIDE 0.9% FLUSH 5 ML FLUSH IVF SCH ×2 (09:00→22:10)
[2016-08-20] MEDS ORDERED: EPINEPHrine HCL (1:10,000) 1 MG/10 ML SYRINGE ONE (11:15)
[2016-08-20] MEDS ORDERED: LIDOCAINE HCL 2% 100 MG/5 ML SYRINGE ONE (11:15)
[2016-08-20] MEDS ORDERED: ATROPINE SULFATE 1 MG/10 ML SYRINGE ONE (11:15)
[2016-08-20] MEDS ORDERED: GADODIAMIDE PF 287 MG/ML 20 ML VIAL (for RAD MRI) IV ONE (11:59)
--- NOTE | 2016-08-20 12:23 | RADRPT ---
EXAM DATE/TIME: 08/19/2016 00:00 This report includes an Addendum and supersedes previous reports for this exam. [facility] COMPARISON: No previous studies available for comparison. INDICATIONS : Patient is in need of a cerebral angiogram for evaluation of cerebral artery thrombus. 81-year-old ge ntleman with stroke score of 12. Dense left hemiparesis. Per report approximately 3 hours since last seen normal. MEDICAL HISTORY : History of MT, metastatic prostate cancer with bone metastases, left eye cataract, AFIB, DM. SURGICAL HISTORY : History of coronary stents, cholecystectomy, right hip surgery. ENCOUNTER: Initial ACUITY: 1 day PAIN SCORE: 0/10 FLUORO TIME: 11.4 minutes ACCESS SITE: Right Femoral artery SEDATION TIME: 60 minutes CONTRAST: 100 cc Visipaque (iodixanol) MEDICATION(S): 1.) 3 mg midazolam (Versed) IV 2.) 150 mcg fentanyl (Sublimaze) IV 3.) 3000 units Heparin IV 4.) 2 g cefazolin (Ancef) IV Vancomycin within 2 hours of procedure, Ancef (or alternative) within 1 hour of procedure. DEVICE(S): 1.) Right common femoral artery 8Fr Angio-Seal PROCEDURE : 1. Ultrasound-guided puncture of the access site. 2. Angiography of the access site prior to closure device. 3. Conscious sedation with continuous EKG and Oximetry monitoring. 4. Percutaneous closure of the access site. 5. Angiography of the right common carotid artery 6. Angiography of the right internal carotid artery 7. Mechanical thrombectomy of the right M1 segment of the middle cerebral artery 8. Followup angiography The risks, benefits and alternatives to the procedure were explained and verbal and written consent w as obtained. The site was prepped in sterile fashion. Full sterile technique was used, including ca p, mask, sterile gloves and gown and a large sterile sheet. Hand hygiene and 2% chlorhexidine and/or betadine/alcohol prep was utilized per protocol for cutaneous antisepsis. The skin and subcutaneous tissues were infiltrated with local anesthetic solution. With ultrasound and fluoroscopic guidance the right common femoral artery was punctured and a vascula r sheath was placed. Angiography of the common femoral artery was performed for evaluation prior to percutaneous closure device placement. The right common carotid artery was selected and angiography performed. These diagnostic images show atherosclerotic plaque throughout the proximal ICA generating a 40-50% stenosis. Selection of the rig ht internal carotid artery was performed and angiography showed complete occlusion of the right middl e cerebral artery with a small focus of thrombus extending slightly into the right A1 origin. No opac ification of the peripheral distribution of the right middle cerebral territory is observed. There is some cross-filling of the contralateral intercerebral artery and middle cerebral artery territories. This would be consistent with the known stenosis of the left carotid. A Raabe sheath was positioned in the brachiocephalic artery. Through this an 8 Mongolian neuron guide catheter was positioned within t he right ICA below the level the skull base. An angiogram was performed to confirm continued antegrad e flow through the stenotic ICA despite the guide catheter. Penumbra and Marksman catheters were pass ed through the aspiration catheter and utilized to engage the thrombus within the middle cerebral art owen M1 segment. The aspiration catheter was engaged into the thrombus and suction applied to the cath eter for 2 minutes. No blood was seen within the catheter tubing. The catheter was withdrawn with suc tion in place. Outside of the patient the catheter was flushed and a thrombus seen. A repeat angiogra m shows reestablishment of antegrade flow through the previously occluded middle cerebral artery. Goo d peripheral filling of the M2 M3 branches noted. No residual thrombus observed. Hemostasis was obtained with the prescribed medicated closure device. Conscious sedation was perform ed with the prescribed dosages and duration as above. EKG and oximetry remained stable throughout th e procedure. The patient was sent to post anesthesia recovery in stable condition. CONCLUSION: 1. Cerebral angiography shows complete occlusion of the M1 segment on the right with poor collaterali zation. Successful mechanical thrombectomy with good flow throughout the right middle cerebral artery . No residual thrombus seen. 2. 40-50% stenosis of the right ICA. Eldon Abreu Jr., MD on August 20, 2016 at 11:13 Board Certified Radiologist. This report was verified electronically. ADDENDUM: The above results are consistent with a TICI score of 3. Eldon Abreu Jr., MD on August 20, 2016 at 12:57 Board Certified Radiologist. This report was verified electronically.
--- NOTE | 2016-08-20 13:22 | RADRPT ---
EXAM DATE/TIME: 08/20/2016 11:34 [facility] COMPARISON: CTA CAROTID ARTERIES W 3D RECON, August 19, 2016, 20:15. CT BRAIN W/O CONTRAST, August 19, 2016, 19:31. INDICATIONS : Sudden onset of weakness in the left arm and leg. CONTRAST: 16 cc Omniscan (gadodiamide) IV MEDICAL HISTORY : Hypertension. Hypercholesterolemia. Carcinoma, prostate. Diabetes SURGICAL HISTORY : Cholecystectomy. Rt hip, coronary stents ENCOUNTER: Subsequent ACUITY: 1 day PAIN SCORE: 0/10 LOCATION: cranial TECHNIQUE: Multiplanar, multisequence MRI of the brain was performed both prior to and following the administrat ion of paramagnetic contrast. FINDINGS: CEREBRUM: There is mild generalized cerebral atrophy. Ventricles are normal in size given the degree of atrophy present. There are prominent Virchow Ryan spaces in the basal ganglia bilaterally. Multiple punctat e areas of susceptibility artifact are visualized in the right cerebrum. No evidence of midline shif t, mass lesion, or hemorrhage. No extraaxial fluid collections are seen. The pituitary gland and taylor prasellar cistern are normal in configuration. WHITE MATTER: There is patchy mild periventricular and subcortical white matter signal change. There is also increa sed flair and T2 signal in the right posterior insula and right frontoparietal high convexity. POSTERIOR FOSSA: The cerebellum and brainstem demonstrate no acute finding. The 4th ventricle is midline. The cerebel lopontine angle is unremarkable. The cerebellar tonsils are normal in position. DIFFUSION IMAGING: There is increased diffusion signal on the B. 1000 sequencing along the right posterior insular ribbo n and in the right frontoparietal high convexity adjacent to the central sulcus. These areas may demo nstrate decreased ADC signal but is challenging to be confident given the small size of the abnormali ties. EXTRACRANIAL: There is abnormal bone marrow signal within the body of C2 and odontoid process and there is an abnor mal bone lesion involving the right mandible body and ramus. POST-CONTRAST: No abnormal areas of parenchymal or dural enhancement. No evidence of blood-brain barrier breakdown. CONCLUSION: 1. Multiple small patchy areas of diffusion signal abnormality along the right posterior insula and i n the right frontoparietal high convexity near the central sulcus. These likely represent areas of re cent ischemia or potentially edema. 2. Multiple punctate areas of susceptibility artifact throughout the right cerebrum suggest remote ar eas of hemorrhage. 3. Abnormal bone marrow signal suspicious for lesions within the right mandible and C2 vertebral body . Suggest correlation for any known primary sites of malignancy as these could represent metastatic l esions or multiple myeloma. A bone scan would be helpful to determine full extent of osseous disease. Angelo Talavera MD on August 20, 2016 at 13:03 Board Certified Radiologist. This report was verified electronically.
--- NOTE | 2016-08-20 13:23 | EKG ---
Date Performed: 08/19/2016 Time Performed: 19:40:37 PTAGE: 81 years EKG: Sinus rhythm WITH SINUS ARRHYTHMIA LEFT VENTRICULAR HYPERTROPHY AND ST-T CHANGE POSSIBLE ANTERIOR MYOCARDIAL INFA RCTION INFERIOR MYOCARDIAL INFARCTION Compared to previous tracing, sinus rhythm has replaced atrial fibrillation but, otherwise, largely unchanged. ABNORMAL ECG PREVIOUS TRACING : 01/06/2011 11.11 DOCTOR: Jersno Masters Interpretating Date/Time 08/20/2016 13:22:29
--- NOTE | 2016-08-20 13:28 | RADRPT ---
EXAM DATE/TIME: 08/20/2016 11:34 [facility] COMPARISON: CTA BRAIN W 3D RECON, August 19, 2016, 20:15. INDICATIONS : Sudden onset of weakness in the left arm and leg. MEDICAL HISTORY : Hypertension. Diabetes mellitus type 2. Hypercholesterolemia. Prostate cancer. SURGICAL HISTORY : Cholecystectomy. Rt hip, coronary stents ENCOUNTER: Subsequent ACUITY: 1 day PAIN SCORE: 0/10 LOCATION: cranial Please note a normal MRA of the brain does not entirely exclude the possibility of a small aneurysm, nor the possibility of distal intracranial vessel disease. TECHNIQUE: 3D time of flight MRA was performed. Source images, multiplanar STS MIP, and 3D volume MIP reconstru ctions were reviewed. FINDINGS: Anterior circulation: The internal carotid arteries demonstrate no significant stenosis. A1 segments and more distal anteri or cerebral arteries are symmetric and within normal limits. The middle cerebral artery branches demo nstrate symmetric flow related enhancement. The area of occlusion document on the prior study has res olved. There is minimal irregularity of the M1 segments likely related to atherosclerotic disease. No aneurysm or high-grade stenosis is identified. Posterior circulation: There is moderate multifocal narrowing of the left posterior cerebral artery and minimal narrowing of the proximal right posterior cerebral artery likely related to atherosclerotic change. Vertebral art eries are codominant. The basilar artery demonstrates no significant stenosis or abnormality. No aneu rysm is visualized. CONCLUSION: 1. The M1 segment occlusion on the right has resolved. There is minimal irregular narrowing of the M1 segments bilaterally likely related to atherosclerotic plaque. 2. Moderate multifocal luminal narrowing in the left posterior cerebral artery, stable from yesterday 's examination and likely related to atherosclerotic disease. Angelo Talavera MD on August 20, 2016 at 13:22 Board Certified Radiologist. This report was verified electronically.
[2016-08-20] MEDS: WARFARIN SOD 5 MG TAB PO SCH (18:00)
--- NOTE | 2016-08-20 20:00 | EC ---
Study Study Date:08/20/2016 STUDY CONCLUSIONS SUMMARY - Left ventricle: The cavity size was normal. Wall thickness was normal. Systolic function was mildly reduced. The estimated ejection fraction was in the range of 45% to 50%. Wall motion was normal; there were no regional wall motion abnormalities. - Aortic valve: Mild regurgitation. Valve area: 3.2cm^2 (Vmax). Impressions: No cardiac source of emboli was indentified. If LV function is below 40, please consider prescribing an ACEI or ARB or document rationale for non-use. PROCEDURE DATA STUDY STATUS: Elective. Procedure: Transthoracic echocardiography. Image quality was good. Scanning was performed from the parasternal, apical, and subcostal acoustic windows. Study completion: The patient tolerated the procedure well. Transthoracic echocardiography. M-mode, complete 2D, complete spectral Doppler, and color Doppler. Patient status: Inpatient. CARDIAC ANATOMY LEFT VENTRICLE: The cavity size was normal. Wall thickness was normal. Systolic function was mildly reduced. The estimated ejection fraction was in the range of 45% to 50%. Wall motion was normal; there were no regional wall motion abnormalities. AORTIC VALVE: Trileaflet; normal thickness leaflets. Doppler: Transvalvular velocity was within the normal range. There was no stenosis. Mild regurgitation. Valve area: 3.2cm^2 (Vmax). AORTA: Aortic root: The aortic root was normal in size. MITRAL VALVE: Structurally normal valve. Doppler: Transvalvular velocity was within the normal range. There was no evidence for stenosis. No regurgitation. Peak gradient: 5mm Hg (D). LEFT ATRIUM: The atrium was normal in size. RIGHT VENTRICLE: The cavity size was normal. Wall thickness was normal. PULMONIC VALVE: Doppler: Transvalvular velocity was within the normal range. There was no evidence for stenosis. No regurgitation. TRICUSPID VALVE: Structurally normal valve. Doppler: Transvalvular velocity was within the normal range. No regurgitation. PULMONARY ARTERY: The main pulmonary artery was normal-sized. Systolic pressure was within the normal range. RIGHT ATRIUM: The atrium was normal in size. PERICARDIUM: There was no pericardial effusion. SYSTEMIC VEINS: Inferior vena cava: The vessel was normal in size. BASIC MEASUREMENTS ADULT Normal Left ventricle LV internal dimension, ED, chordal level, *38.4 mm 43-52 PLAX LV internal dimension, ES, chordal level, 30.8 mm 23-38 PLAX Fractional shortening, chordal level, PLAX *20 % >29 LV posterior wall thickness, ED 10.7 mm IVS/LVPW ratio, ED 1.07 <1.3 Ventricular septum Septal thickness, ED 11.5 mm Aortic valve Leaflet separation 20 mm 15-26 Right ventricle RV internal dimension, ED, PLAX 26 mm 19-38 BASIC MEASUREMENTS ADULT Normal Aortic valve Leaflet separation 20 mm 15-26 Aorta Root diameter, ED *41 mm 20-37 Left atrium Anterior-posterior dimension, ES 37 mm 19-40 LA/aortic root ratio 0.9 DOPPLER MEASUREMENTS ADULT Normal Main pulmonary artery Pressure, S 17 mm Hg =30 Aortic valve Peak velocity, S 102 cm/s Valve area, Vmax 3.2 cm^2 Regurgitant velocity, ED 277 cm/s Regurgitant deceleration 803 cm/s^2 Regurgitant pressure half-time 1010 ms Regurgitant gradient, ED 31 mm Hg Mitral valve Peak E-wave velocity 111 cm/s Peak A-wave velocity 93.3 cm/s Deceleration time *116 ms 150-230 Peak gradient, D 5 mm Hg Peak E/A ratio 1.2 Tricuspid valve Regurgitant peak velocity 133 cm/s Peak RV-RA gradient, S 7 mm Hg Maximal regurgitant velocity 133 cm/s Systemic veins Estimated CVP 10 mm Hg Right ventricle RV pressure, S 17 mm Hg <30 LEGEND: Mean values are shown as u=mean value. Asterisk (*) huston values outside specified normal range. Prepared and signed by Irvin Collins [id number]
--- NOTE | 2016-08-20 20:20 | RADRPT ---
EXAM DATE/TIME: 08/20/2016 20:04 [place] COMPARISON: MRI BRAIN W & W/O CONTRAST, August 20, 2016, 11:34. CT BRAIN W/O CONTRAST, August 19, 2016, 19: 31. INDICATIONS : Stroke alert post-TPA. RADIATION DOSE: 50.83 CTDIvol (mGy) MEDICAL HISTORY : Hypertension. Cardiovascular disease Diabetes mellitus type 1.Prostate cancer. SURGICAL HISTORY : None. ENCOUNTER: Initial ACUITY: 2 days PAIN SCALE: Non-responsive LOCATION: cranial TECHNIQUE: Multiple contiguous axial images were obtained of the head. Using automated exposure control and adj ustment of the mA and/or kV according to patient size, radiation dose was kept as low as reasonably a chievable to obtain optimal diagnostic quality images. FINDINGS: No bleed. No mass, mass effect or midline shift. On this noncontrast head CT, no well-defined ischemi c event demonstrated. CONCLUSION: No bleed or other complication after TPA. Angelo Ramirez MD on August 20, 2016 at 20:16 Board Certified Radiologist. This report was verified electronically.
[2016-08-20] MEDS: HEPARIN SODIUM - SQ 10,000 UNITS/ML VIAL SQ SCH (22:10)
[2016-08-20 23:12] LABS: INTERNATIONAL NORMALIZED RATIO 1.1 RATIO; PROTHROMBIN TIME - PATIENT 12.7 SEC (9.8-11.6)
[2016-08-21] VITALS (11 sets, daily range): BP systolic 120–159; BP diastolic 22–84; PULSE 77–110; RESP 18–30; TEMP 97.5–98.7; O2SAT 94–98
[2016-08-21] MEDS: SODIUM CHLOR 0.9% 1000 ML INJ 1,000 ML IV SCH ×2 (03:40→09:51)
[2016-08-21 05:03] LABS: HEMATOCRIT 34.7 % (39.0-51.0); MEAN CELL VOLUME 94.3 FL (80.0-100.0); MEAN CORPUSCULAR HEMOGLOBIN 32.7 PG (27.0-34.0); MEAN CORPUSCULAR HGB CONC 34.7 % (32.0-36.0); PLATELET COUNT 129 TH/MM3 (150-450); RED BLOOD COUNT 3.68 MIL/MM3 (4.50-5.90); RED CELL DISTRIBUTION WIDTH 13.7 % (11.6-17.2); REVIEW FLAG FINAL
[2016-08-21 05:09] LABS: INTERNATIONAL NORMALIZED RATIO 1.1 RATIO; PROTHROMBIN TIME - PATIENT 12.1 SEC (9.8-11.6)
[2016-08-21 05:25] LABS: BICARBONATE 23.8 MEQ/L (21.0-32.0); MAGNESIUM 2.2 MG/DL (1.5-2.5); POTASSIUM 3.8 MEQ/L (3.5-5.1)
[2016-08-21 05:39] LABS: CALCIUM-PROTEIN CORRECTED 8.5 MG/DL (8.5-10.1)
[2016-08-21] MEDS: INSULIN ASPART SUPPLEMENTAL SCALE SQ SCH ×4 (07:00→21:00)
--- NOTE | 2016-08-21 08:51 | HHI.PR ---
Subjective Remarks 150-170/ Objective Vital Signs Date Time Temp Pulse Resp B/P Pulse Ox O2 Delivery O2 Flow Rate FiO2 08/21/16 06:00 98 08/21/16 04:00 100 08/21/16 04:00 98.5 100 22 156/22 97 08/21/16 02:00 91 08/21/16 00:00 91 08/21/16 00:00 97.6 96 30 146/67 98 08/20/16 22:00 100 08/20/16 21:06 97 21 08/20/16 20:00 84 08/20/16 20:00 98.1 84 22 167/76 95 08/20/16 18:00 92 08/20/16 16:00 91 08/20/16 16:00 98.0 91 20 143/68 98 08/20/16 14:00 86 08/20/16 12:00 97.6 84 23 129/64 97 08/20/16 12:00 84 08/20/16 10:00 83 08/20/16 10:00 98.6 80 20 132/62 97 I/O 08/20/16 08/20/16 08/20/16 08/21/16 08/21/16 08/21/16 07:00 15:00 23:00 07:00 15:00 23:00 Intake Total 547 ml 629 ml 519 ml 542 ml Output Total 800 ml 325 ml 300 ml 350 ml Balance -253 ml 304 ml 219 ml 192 ml Intake IV Total 547 ml 629 ml 519 ml 542 ml Output Urine Total 800 ml 325 ml 300 ml 350 ml # Bowel Movements 0 0 0 0 Result Diagram: 08/21/16 0353 08/21/16 0353 Objective Remarks awake speech clear left now 4+/5 lue and 4/*5 lle no droop vff Assessment and Plan Assessment and Plan imp much improved after embolectomy today check mri mult small to mod cva mra cow r mca open keep bp up ivh on and oob ok watch left side swallow looks fine ok to eat start coumadin i dw nurse and son Morales Bernard [address] L[address] Aug 21, 2016 08:51
[2016-08-21] MEDS: SODIUM CHLORIDE 0.9% FLUSH 5 ML FLUSH IVF SCH ×2 (09:50→21:35)
[2016-08-21] MEDS: HEPARIN SODIUM - SQ 10,000 UNITS/ML VIAL SQ SCH ×2 (09:51→21:36)
--- NOTE | 2016-08-21 13:22 | HHI.PR ---
Subjective Remarks Follow-up Ischemic stroke 08/21/16-patient seen and examined in the presence of his son; both reports significant improvement of symptoms since admission, patient denies any chest pain or shortness of breath. Taking by mouth without any complication. Patient was up and ambulated with PT today. Coumadin was started today . Objective Vitals Vital Signs Date Time Temp Pulse Resp B/P Pulse Ox O2 Delivery O2 Flow Rate FiO2 08/21/16 10:00 98 08/21/16 08:00 97.5 110 23 159/84 98 08/21/16 08:00 110 08/21/16 06:00 98 08/21/16 04:00 100 08/21/16 04:00 98.5 100 22 156/22 97 08/21/16 02:00 91 08/21/16 00:00 91 08/21/16 00:00 97.6 96 30 146/67 98 08/20/16 22:00 100 08/20/16 21:06 97 21 08/20/16 20:00 84 08/20/16 20:00 98.1 84 22 167/76 95 08/20/16 18:00 92 08/20/16 16:00 91 08/20/16 16:00 98.0 91 20 143/68 98 08/20/16 14:00 86 I/O 08/20/16 08/20/16 08/20/16 08/21/16 08/21/16 08/21/16 06:59 14:59 22:59 06:59 14:59 22:59 Intake Total 547 ml 629 ml 519 ml 542 ml Output Total 800 ml 325 ml 300 ml 350 ml Balance -253 ml 304 ml 219 ml 192 ml Intake IV Total 547 ml 629 ml 519 ml 542 ml Output Urine Total 800 ml 325 ml 300 ml 350 ml # Bowel Movements 0 0 0 0 Result Diagram: 08/21/16 0353 08/21/16 0353 Imaging Last Impressions Brain MRI 08/20/162001 Signed Impressions: Service Date/Time: July 11:34 - CONCLUSION: 1. Multiple small patchy areas of diffusion signal abnormality along the right posterior insula and in the right frontoparietal high convexity near the central sulcus. These likely represent areas of recent ischemia or potentially edema. 2. Multiple punctate areas of susceptibility artifact throughout the right cerebrum suggest remote areas of hemorrhage. 3. Abnormal bone marrow signal suspicious for lesions within the right mandible and C2 vertebral body. Suggest correlation for any known primary sites of malignancy as these could represent metastatic lesions or multiple myeloma. A bone scan would be helpful to determine full extent of osseous disease. Angelo Talavera MD Head Magnetic Resonance Angiography 08/20/16 Signed Impressions: Service Date/Time: July 11:34 - CONCLUSION: 1. The M1 segment occlusion on the right has resolved. There is minimal irregular narrowing of the M1 segments bilaterally likely related to atherosclerotic plaque. 2. Moderate multifocal luminal narrowing in the left posterior cerebral artery, stable from yesterday's examination and likely related to atherosclerotic disease. Angelo Talavera MD Head CT 08/20/16 Signed Impressions: Service Date/Time: July 20:04 - CONCLUSION: No bleed or other complication after TPA. Angelo Ramirez MD Neck CTA 08/19/162001 Signed Impressions: Service Date/Time: Friday, August 19, 2016 20:15 - CONCLUSION: Hemodynamically significant stenosis of the left internal carotid artery as described above. Occlusive filling defect within the right middle cerebral artery as noted previously. Celestine Bernard MD Head CTA 08/19/162001 Signed Impressions: Service Date/Time: Friday, August 19, 2016 20:15 - CONCLUSION: Filling defect within the right middle cerebral artery as described above consistent with thrombus. Extensive atherosclerotic disease. Interventional team aware of these findings at the time of study completion 8:30 p.m. August 19, 2016 . Celestine Bernard MD Chest X-Ray 08/19/16 Signed Impressions: Service Date/Time: Friday, August 19, 2016 19:56 - CONCLUSION: No acute disease. Celestine Bernard MD Cerebral Arteriogram 08/19/16 Signed Impressions: Service Date/Time: Friday, August 19, 2016 00:00 - CONCLUSION: 1. Cerebral angiography shows complete occlusion of the M1 segment on the right with poor collateralization. Successful mechanical thrombectomy with good flow throughout the right middle cerebral artery. No residual thrombus seen. 2. 40-50%% stenosis of the right ICA. Eldon Abreu Jr., MD ADDENDUM: The above results are consistent with a TICI score of 3. Eldon Abreu Jr., MD Objective Remarks GENERAL: NAD SKIN: Warm and dry. HEAD: Normocephalic. EYES: No scleral icterus. No injection or drainage. NECK: Supple, trachea midline. No JVD or lymphadenopathy. CARDIOVASCULAR: Regular rate and rhythm without murmurs, gallops, or rubs. RESPIRATORY: Breath sounds equal bilaterally. No accessory muscle use. GASTROINTESTINAL: Abdomen soft, non-tender, nondistended. MUSCULOSKELETAL: No cyanosis, or edema. NEURO: CN II-XII intact BACK: Nontender without obvious deformity. No CVA tenderness. Procedures Mechanical thrombectomy 08/20/16 A/P Problem List: (1) Stroke ICD Code: I63.9 Status: Acute Assessment and Plan 81-year-old male with: Ischemic stroke with left hemiparesis status post IV TPA followed by mechanical thrombectomy of right M1 segment. Continue management per ischemic stroke protocol. Appreciate input from neurology. Continue permissive hypertension PT/OT/speech therapy.. Coumadin to be started today 08/21/16 Hypertension: Currently on permissive hypertension History of A. fib: Start Coumadin today 08/21/16 Hyperlipidemia: Statin Prophylaxis: SCD. Coumadin tonight Problem Qualifiers (1) Stroke: Qualified Code: I63.9 - Cerebrovascular accident (CVA), unspecified mechanism Alverto Da Silva MD Aug 21, 2016 13:22
[2016-08-21] MEDS: WARFARIN SOD 5 MG TAB PO SCH (16:36)
[2016-08-22] VITALS (8 sets, daily range): BP systolic 105–174; BP diastolic 51–83; PULSE 82–99; RESP 14–20; TEMP 96.1–98.1; O2SAT 96–98
[2016-08-22] MEDS: INSULIN ASPART SUPPLEMENTAL SCALE SQ SCH ×4 (05:24→21:00)
[2016-08-22] MEDS: SODIUM CHLOR 0.9% 1000 ML INJ 1,000 ML IV SCH ×2 (08:16→22:34)
[2016-08-22] MEDS: HEPARIN SODIUM - SQ 10,000 UNITS/ML VIAL SQ SCH ×2 (08:31→21:00)
[2016-08-22] MEDS: SODIUM CHLORIDE 0.9% FLUSH 5 ML FLUSH IVF SCH ×2 (09:00→21:00)
--- NOTE | 2016-08-22 10:16 | HHI.PR ---
Subjective Remarks Follow-up Ischemic stroke 08/21/16-patient seen and examined in the presence of his son; both reports significant improvement of symptoms since admission, patient denies any chest pain or shortness of breath. Taking by mouth without any complication. Patient was up and ambulated with PT today. Coumadin was started today . 08/22/16-patient seen and examined again presence of his son and daughter-in- law. No acute event overnight, ambulate with assistance without any complication of weakness. Stable this morning and patient is wondering when we be discharged to [facility] in [place] Objective Vitals Vital Signs Date Time Temp Pulse Resp B/P Pulse Ox O2 Delivery O2 Flow Rate FiO2 08/22/16 08:00 96.1 90 17 105/51 97 08/22/16 04:00 96.6 88 20 172/83 98 08/22/16 00:00 97.9 99 19 174/81 98 08/21/16 20:00 82 08/21/16 20:00 98.7 84 19 149/69 97 08/21/16 18:00 96 08/21/16 16:00 97.7 85 18 120/58 95 08/21/16 16:00 85 08/21/16 14:00 77 08/21/16 12:00 94 08/21/16 12:00 97.6 94 20 132/61 94 I/O 08/21/16 08/21/16 08/21/16 08/22/16 08/22/16 08/22/16 07:00 15:00 23:00 07:00 15:00 23:00 Intake Total 542 ml 1059 ml Output Total 350 ml 400 ml 250 ml 400 ml Balance 192 ml 659 ml -250 ml -400 ml Intake Oral 480 ml IV Total 542 ml 579 ml Output Urine Total 350 ml 400 ml 250 ml 400 ml # Bowel Movements 0 0 Result Diagram: 08/21/16 0353 08/21/16 0353 Imaging Last Impressions Brain MRI 08/20/162001 Signed Impressions: Service Date/Time: July 11:34 - CONCLUSION: 1. Multiple small patchy areas of diffusion signal abnormality along the right posterior insula and in the right frontoparietal high convexity near the central sulcus. These likely represent areas of recent ischemia or potentially edema. 2. Multiple punctate areas of susceptibility artifact throughout the right cerebrum suggest remote areas of hemorrhage. 3. Abnormal bone marrow signal suspicious for lesions within the right mandible and C2 vertebral body. Suggest correlation for any known primary sites of malignancy as these could represent metastatic lesions or multiple myeloma. A bone scan would be helpful to determine full extent of osseous disease. Angelo Talavera MD Head Magnetic Resonance Angiography 08/20/16 Signed Impressions: Service Date/Time: July 11:34 - CONCLUSION: 1. The M1 segment occlusion on the right has resolved. There is minimal irregular narrowing of the M1 segments bilaterally likely related to atherosclerotic plaque. 2. Moderate multifocal luminal narrowing in the left posterior cerebral artery, stable from yesterday's examination and likely related to atherosclerotic disease. Angelo Talavera MD Head CT 08/20/16 Signed Impressions: Service Date/Time: July 20:04 - CONCLUSION: No bleed or other complication after TPA. Angelo Ramirez MD Neck CTA 08/19/162001 Signed Impressions: Service Date/Time: Friday, August 19, 2016 20:15 - CONCLUSION: Hemodynamically significant stenosis of the left internal carotid artery as described above. Occlusive filling defect within the right middle cerebral artery as noted previously. Celestine Bernard MD Head CTA 08/19/162001 Signed Impressions: Service Date/Time: Friday, August 19, 2016 20:15 - CONCLUSION: Filling defect within the right middle cerebral artery as described above consistent with thrombus. Extensive atherosclerotic disease. Interventional team aware of these findings at the time of study completion 8:30 p.m. August 19, 2016 . Celestine Bernard MD Chest X-Ray 08/19/16 Signed Impressions: Service Date/Time: Friday, August 19, 2016 19:56 - CONCLUSION: No acute disease. Celestine Bernard MD Cerebral Arteriogram 08/19/16 Signed Impressions: Service Date/Time: Friday, August 19, 2016 00:00 - CONCLUSION: 1. Cerebral angiography shows complete occlusion of the M1 segment on the right with poor collateralization. Successful mechanical thrombectomy with good flow throughout the right middle cerebral artery. No residual thrombus seen. 2. 40-50%% stenosis of the right ICA. Eldon Abreu Jr., MD ADDENDUM: The above results are consistent with a TICI score of 3. Eldon Abreu Jr., MD Objective Remarks GENERAL: NAD SKIN: Warm and dry. HEAD: Normocephalic. EYES: No scleral icterus. No injection or drainage. NECK: Supple, trachea midline. No JVD or lymphadenopathy. CARDIOVASCULAR: Regular rate and rhythm without murmurs, gallops, or rubs. RESPIRATORY: Breath sounds equal bilaterally. No accessory muscle use. GASTROINTESTINAL: Abdomen soft, non-tender, nondistended. MUSCULOSKELETAL: No cyanosis, or edema. NEURO: CN II-XII intact BACK: Nontender without obvious deformity. No CVA tenderness. Procedures Mechanical thrombectomy 08/20/16 A/P Problem List: (1) Stroke ICD Code: I63.9 Status: Acute (2) Hypothyroidism ICD Code: E03.9 Status: Acute (3) Hyperlipidemia ICD Code: E78.5 Status: Acute (4) Benign hypertension ICD Code: I10 Status: Acute Assessment and Plan 81-year-old male with: 1-Ischemic stroke with left hemiparesis status post IV TPA followed by mechanical thrombectomy of right M1 segment. Continue management per ischemic stroke protocol. Appreciate input from neurology. Continue permissive hypertension PT/OT/speech therapy.. Coumadin started 08/21/16. Aspirin on hold. Discharge to [facility] when medically stable 2-Hypertension: Currently on permissive hypertension; continue to hold Lopressor 3-History of A. fib: Start Coumadin today 08/21/16 4-Hyperlipidemia: On Lipitor 5-Hypothyroidism: Resume Synthroid Prophylaxis: SCD. Coumadin Discharge Planning Discharge to [facility] when medically stable Problem Qualifiers (1) Stroke: Qualified Code: I63.9 - Cerebrovascular accident (CVA), unspecified mechanism Alverto Da Silva MD Aug 22, 2016 10:16
[2016-08-22 11:10] LABS: INTERNATIONAL NORMALIZED RATIO 1.1 RATIO; PROTHROMBIN TIME - PATIENT 11.9 SEC (9.8-11.6)
--- NOTE | 2016-08-22 15:05 | HM ---
Date Performed: 08/20/2016 Time Performed: 17:11:00 HOOKUP DATE: 08/20/16 05:11:00 PM Amy ANALYSIS START TIME: 08/20/2016 5:16:00 PM ANALYSIS END TIME: 08/21/2016 5:19:59 PM PATIENT AGE: 81 PATIENT HEIGHT PATIENT WEIGHT DRUG LIST PATIENT DIAGNOSIS: STROKE ALERT TEST NARRATIVE: The patient's average heart rate was 95 BPM. Heart rates greater than 120 B PM were noted 2% of the time. No episodes of bradycardia were noted. No pauses exceeding 2.0 sec onds were noted. 3435 ventricular ectopics, which represented 3% of the total beat count, were no reinaldo. The highest ventricular ectopic frequency occurred from 08:00 AM to 09:00 AM Fri. During this time 278 VE(s) occurred. Ventricular ectopics were observed as 3248 isolated beat(s), as 80 couplet( s) and as 8 run(s). Some of the ventricular beats occurred in bigeminal cycles. No supraventricu lar ectopics were noted. No episodes of ST depression (defined as -1.0 mm or more) were noted in channel 1. No episodes of ST depression (defined as -1.0 mm or more) were noted in channel 2. No ep isodes of ST depression (defined as -1.0 mm or more) were noted in channel 3. No diary events we re reported by the patient. TEST INTERPRETATION: Patient undergoes a holter monitor as part of a stroke alert. No diary is p rovided. The holter monitor is technically poor because of a low amplitude T wave, but the patient ap pears to be in Sinus rhythm throughout most of the monitoring session. Only the expanded tracings are subject to interpretation. The peak HR appears to be occuring at 0949 with a heart rate of 167 bpm. It's difficult to be certai n but the rhythm is probably or at least possibly a brief episode of atrial fibrillation. Patient has PVCs and couplets and there are a number of episodes on nonsustained ventricular tachycardia, the lo ngest being 5-6 beats in duration. No sustained tachy or bartolome arrhythmias are noted. Conclusions: A bnormal holter monitor showing episodes of nonsustained supraventricular tachycardia and nonsustained ventricular tachycardia. Holter monitor showing largely normal sinus rhythm. An episode of questiona ble but probable atrial fibrillation occuring at 0949 on 08/21/16. No diary is provided, so its unkno wn as to whether the patient is symptomatic. Signed by : Lynsey Clarke
[2016-08-22] MEDS ORDERED: WARFARIN SOD 1 MG TAB PO ONE (16:00)
[2016-08-22] MEDS: WARFARIN SOD 5 MG TAB PO SCH (16:18)
[2016-08-22] MEDS: ATORVASTATIN 10 MG TAB PO SCH (21:15)
[2016-08-23] VITALS (7 sets, daily range): BP systolic 124–159; BP diastolic 60–73; PULSE 58–93; RESP 14–19; TEMP 96.5–99; O2SAT 93–100
[2016-08-23] MEDS: LEVOTHYROXINE SODIUM 100 MCG TAB PO SCH (05:33)
[2016-08-23] MEDS: INSULIN ASPART SUPPLEMENTAL SCALE SQ SCH ×4 (06:45→21:00)
[2016-08-23 08:05] LABS: INTERNATIONAL NORMALIZED RATIO 1.2 RATIO; PROTHROMBIN TIME - PATIENT 12.8 SEC (9.8-11.6)
[2016-08-23] MEDS: FINASTERIDE 5 MG TAB PO SCH (08:58)
[2016-08-23] MEDS: HEPARIN SODIUM - SQ 10,000 UNITS/ML VIAL SQ SCH ×2 (08:59→21:00)
[2016-08-23] MEDS: SODIUM CHLORIDE 0.9% FLUSH 5 ML FLUSH IVF SCH ×2 (09:00→21:00)
--- NOTE | 2016-08-23 09:50 | HHI.PR ---
Subjective Remarks Follow-up Ischemic stroke 08/21/16-patient seen and examined in the presence of his son; both reports significant improvement of symptoms since admission, patient denies any chest pain or shortness of breath. Taking by mouth without any complication. Patient was up and ambulated with PT today. Coumadin was started today . 08/22/16-patient seen and examined again presence of his son and daughter-in- law. No acute event overnight, ambulate with assistance without any complication of weakness. Stable this morning and patient is wondering when we be discharged to [facility] in [place] 08/23/16-patient seen and examined; stable and no complaint. In Sinus rhythm and denies any weakness to upper or lower extremities. Son and [id number] by the bedside. She is looking for discharge to [facility] in [place]. Objective Vitals Vital Signs Date Time Temp Pulse Resp B/P Pulse Ox O2 Delivery O2 Flow Rate FiO2 08/23/16 04:00 98.8 88 16 127/63 93 08/23/16 00:00 97.5 85 14 137/73 94 08/22/16 20:00 98.1 82 14 133/65 96 08/22/16 20:00 98.1 82 14 166/74 96 08/22/16 16:32 97.4 88 17 136/62 98 08/22/16 16:00 97.4 88 17 136/62 98 08/22/16 12:00 97.0 82 18 125/62 98 08/22/16 11:56 93 I/O 08/22/16 08/22/16 08/22/16 08/23/16 08/23/16 08/23/16 07:00 15:00 23:00 07:00 15:00 23:00 Intake Total 940 ml Output Total 400 ml 600 ml 1900 ml Balance -400 ml -600 ml -960 ml Intake Oral 940 ml Output Urine Total 400 ml 600 ml 1900 ml # Voids 1 # Bowel Movements 1 Result Diagram: 08/21/16 0353 08/21/16 0353 Imaging Last Impressions Brain MRI 08/20/162001 Signed Impressions: Service Date/Time: July 11:34 - CONCLUSION: 1. Multiple small patchy areas of diffusion signal abnormality along the right posterior insula and in the right frontoparietal high convexity near the central sulcus. These likely represent areas of recent ischemia or potentially edema. 2. Multiple punctate areas of susceptibility artifact throughout the right cerebrum suggest remote areas of hemorrhage. 3. Abnormal bone marrow signal suspicious for lesions within the right mandible and C2 vertebral body. Suggest correlation for any known primary sites of malignancy as these could represent metastatic lesions or multiple myeloma. A bone scan would be helpful to determine full extent of osseous disease. Angelo Talavera MD Head Magnetic Resonance Angiography 08/20/16 Signed Impressions: Service Date/Time: July 11:34 - CONCLUSION: 1. The M1 segment occlusion on the right has resolved. There is minimal irregular narrowing of the M1 segments bilaterally likely related to atherosclerotic plaque. 2. Moderate multifocal luminal narrowing in the left posterior cerebral artery, stable from yesterday's examination and likely related to atherosclerotic disease. Angelo Talavera MD Head CT 08/20/16 Signed Impressions: Service Date/Time: July 20:04 - CONCLUSION: No bleed or other complication after TPA. Angelo Ramirez MD Neck CTA 08/19/162001 Signed Impressions: Service Date/Time: Friday, August 19, 2016 20:15 - CONCLUSION: Hemodynamically significant stenosis of the left internal carotid artery as described above. Occlusive filling defect within the right middle cerebral artery as noted previously. Celestine Bernard MD Head CTA 08/19/162001 Signed Impressions: Service Date/Time: Friday, August 19, 2016 20:15 - CONCLUSION: Filling defect within the right middle cerebral artery as described above consistent with thrombus. Extensive atherosclerotic disease. Interventional team aware of these findings at the time of study completion 8:30 p.m. August 19, 2016 . Celestine Bernard MD Chest X-Ray 08/19/16 Signed Impressions: Service Date/Time: Friday, August 19, 2016 19:56 - CONCLUSION: No acute disease. Celestine Bernard MD Cerebral Arteriogram 08/19/16 Signed Impressions: Service Date/Time: Friday, August 19, 2016 00:00 - CONCLUSION: 1. Cerebral angiography shows complete occlusion of the M1 segment on the right with poor collateralization. Successful mechanical thrombectomy with good flow throughout the right middle cerebral artery. No residual thrombus seen. 2. 40-50%% stenosis of the right ICA. Eldon Abreu Jr., MD ADDENDUM: The above results are consistent with a TICI score of 3. Eldon Abreu Jr., MD Objective Remarks GENERAL: NAD SKIN: Warm and dry. HEAD: Normocephalic. EYES: No scleral icterus. No injection or drainage. NECK: Supple, trachea midline. No JVD or lymphadenopathy. CARDIOVASCULAR: Regular rate and rhythm without murmurs, gallops, or rubs. RESPIRATORY: Breath sounds equal bilaterally. No accessory muscle use. GASTROINTESTINAL: Abdomen soft, non-tender, nondistended. MUSCULOSKELETAL: No cyanosis, or edema. NEURO: CN II-XII intact BACK: Nontender without obvious deformity. No CVA tenderness. Procedures Mechanical thrombectomy 08/20/16 A/P Problem List: (1) Stroke ICD Code: I63.9 Status: Acute (2) Hypothyroidism ICD Code: E03.9 Status: Chronic (3) Hyperlipidemia ICD Code: E78.5 Status: Chronic (4) Benign hypertension ICD Code: I10 Status: Chronic Assessment and Plan 81-year-old male with: 1-Ischemic stroke with left hemiparesis status post IV TPA followed by mechanical thrombectomy of right M1 segment. Continue management per ischemic stroke protocol. Appreciate input from neurology. d/c permissive hypertension PT/OT/speech therapy.. Coumadin started 08/21/16. Aspirin on hold. Discharge to [facility] today 08/23/16 2-Hypertension: Resume Lopressor 3-History of A. fib: on Coumadin, Lopressor 4-Hyperlipidemia: On Lipitor 5-Hypothyroidism: Resume Synthroid Prophylaxis: SCD. Coumadin Discharge Planning Discharge to [facility] when medically stable Problem Qualifiers (1) Stroke: Qualified Code: I63.9 - Cerebrovascular accident (CVA), unspecified mechanism Alverto Da Silva MD Aug 23, 2016 09:49
--- NOTE | 2016-08-23 09:55 | HHI.DS ---
Discharge Summary Admission Date Aug 19, 2016 at 20:22 Discharge Date: Aug 23, 2016 Admitting Diagnosis Stroke Alert (1) Stroke ICD Code: I63.9 (2) Hypothyroidism ICD Code: E03.9 (3) Hyperlipidemia ICD Code: E78.5 (4) Benign hypertension ICD Code: I10 Procedures Mechanical thrombectomy 08/20/16 Brief History - From Admission The patient is a 81-year-old I's by EMS. Approximately 1 hour prior to ER arrival the patient experienced a sudden onset of weakness in the left arm and leg. He fell to the ground. He was able to call his son who called EMS. On scene EMS observed paralysis in the left arm with dysarthria. Vital signs were observed to be approximately 160/80 with a pulse of approximately 100. Fingerstick glucose was normal. No change in neurologic status was observed en route. Upon arrival to the ER the [facility] was negative for bleed and patient was given IV TPA after being evaluated by Dr. Bernard from neurology. Subsequently he was taken to interventional radiology and underwent mechanical thrombectomy of occluded right M1. Following this patient was transferred to [facility] where I evaluated him on arrival. At the time of my evaluation patient was laying flat in bed and did not appear to be in any acute distress. He was still having speech difficulty however couldn't verbalize. He continued to have left upper and lower extremity weakness. History PFSH Past Medical History Arthritis: No Asthma: No Atrial Fibrillation: Yes Autoimmune Disease: No Blood Disorders: No Heart Rhythm Problems: No Cancer: No Cardiac Catheterization: Yes (JANUARY 1997) Cardiovascular Problems: Yes High Cholesterol: Yes Chemotherapy: No Chest Pain: No Congestive Heart Failure: No COPD: No Cerebrovascular Accident: No Diabetes: Yes Diminished Hearing: No Endocrine: No GERD: No Glaucoma: No Genitourinary: No Headaches: No Hepatitis: No Hiatal Hernia: No Hypertension: Yes Immune Disorder: No Kidney Stones: No Musculoskeletal: No Neurologic: No Psychiatric: No Reproductive: No Respiratory: No Immunizations Current: No Migraines: No Myocardial Infarction: Yes (X 2) Radiation Therapy: No Renal Failure: No Seizures: No Sickle Cell Disease: No Sleep Apnea: No Thyroid Disease: No Ulcer: No Past Surgical History Abdominal Surgery: No AICD: No Appendectomy: No Arteriovenous Shunt: No Cardiac Surgery: Yes Cholecystectomy: Yes Coronary Stent: Yes (X 24 JANUARY 1997) Ear Surgery: No Endocrine Surgery: No Eye Surgery: No Genitourinary Surgery: No Insulin Pump: No Joint Replacement: No Oral Surgery: No Pacemaker: No Thoracic Surgery: No Other Surgery: Yes Social History Alcohol Use: No Tobacco Use: No Substance Use: No Allergies-Medications Allergies-Medications (Allergen,Severity, Reaction): Coded Allergies: No Known Allergies (Verified , 07/24/13) Reported Meds & Prescriptions Reported Meds & Active Scripts Active Reported Aspirin 325 Mg Tab (Aspirin) 325 Mg Tab 325 Mg PO DAILY Synthroid (Levothyroxine Sodium) 112 Mcg Tab 112 Mcg PO DAILY TAKE ON AN EMPTY STOMACH Amiodarone Hcl (Amiodarone HCl) 200 Mg Tab 100 Mg PO DAILY Avodart (Dutasteride) 0.5 Mg Cap 0.5 Mg PO 3 TIMES A WEEK Centrum (Multivitamins) Tab Lipitor (Atorvastatin Calcium) 20 Mg Tab 20 Mg PO DAILY Capoten (Captopril) 12.5 Mg Tab 12.5 Mg PO DAILY ROS Review of Systems ROS Limitations: Clinical Condition, Altered Mental Status CBC/BMP: 08/21/16 0353 08/21/16 0353 Significant Findings Laboratory Tests Test 08/20/16 08/21/16 08/22/16 08/23/16 22:46 03:53 10:15 07:09 Prothrombin Time 12.7 SEC 12.1 SEC 11.9 SEC 12.8 SEC (9.8-11.6) (9.8-11.6) (9.8-11.6) (9.8-11.6) Red Blood Count 3.68 MIL/MM3 (4.50-5.90) Hemoglobin 12.0 GM/DL (13.0-17.0) Hematocrit 34.7 % (39.0-51.0) Platelet Count 129 TH/MM3 (150-450) Chloride Level 109 MEQ/L (98-107) Creatinine 0.49 MG/DL (0.60-1.30) Calcium Level 7.4 MG/DL (8.5-10.1) Phosphorus Level 1.7 MG/DL (2.5-4.9) Total Protein 5.2 GM/DL (6.4-8.2) Imaging Last Impressions Brain MRI 08/20/162001 Signed Impressions: Service Date/Time: July 11:34 - CONCLUSION: 1. Multiple small patchy areas of diffusion signal abnormality along the right posterior insula and in the right frontoparietal high convexity near the central sulcus. These likely represent areas of recent ischemia or potentially edema. 2. Multiple punctate areas of susceptibility artifact throughout the right cerebrum suggest remote areas of hemorrhage. 3. Abnormal bone marrow signal suspicious for lesions within the right mandible and C2 vertebral body. Suggest correlation for any known primary sites of malignancy as these could represent metastatic lesions or multiple myeloma. A bone scan would be helpful to determine full extent of osseous disease. Angelo Talavera MD Head Magnetic Resonance Angiography 08/20/16 0000 Signed Impressions: Service Date/Time: July 11:34 - CONCLUSION: 1. The M1 segment occlusion on the right has resolved. There is minimal irregular narrowing of the M1 segments bilaterally likely related to atherosclerotic plaque. 2. Moderate multifocal luminal narrowing in the left posterior cerebral artery, stable from yesterday's examination and likely related to atherosclerotic disease. Angelo Talavera MD Head CT 08/20/16 0000 Signed Impressions: Service Date/Time: July 20:04 - CONCLUSION: No bleed or other complication after TPA. Angelo Ramirez MD Neck CTA 08/19/162001 Signed Impressions: Service Date/Time: Friday, August 19, 2016 20:15 - CONCLUSION: Hemodynamically significant stenosis of the left internal carotid artery as described above. Occlusive filling defect within the right middle cerebral artery as noted previously. Celestine Bernard MD Head CTA 08/19/162001 Signed Impressions: Service Date/Time: Friday, August 19, 2016 20:15 - CONCLUSION: Filling defect within the right middle cerebral artery as described above consistent with thrombus. Extensive atherosclerotic disease. Interventional team aware of these findings at the time of study completion 8:30 p.m. August 19, 2016 . Celestine Bernard MD Chest X-Ray 08/19/16 Signed Impressions: Service Date/Time: Friday, August 19, 2016 19:56 - CONCLUSION: No acute disease. Celestine Bernard MD Cerebral Arteriogram 08/19/16 0000 Signed Impressions: Service Date/Time: Friday, August 19, 2016 00:00 - CONCLUSION: 1. Cerebral angiography shows complete occlusion of the M1 segment on the right with poor collateralization. Successful mechanical thrombectomy with good flow throughout the right middle cerebral artery. No residual thrombus seen. 2. 40-50%% stenosis of the right ICA. Eldon Abreu Jr., MD ADDENDUM: The above results are consistent with a TICI score of 3. Eldon Abreu Jr., MD PE at Discharge GENERAL: NAD SKIN: Warm and dry. HEAD: Normocephalic. EYES: No scleral icterus. No injection or drainage. NECK: Supple, trachea midline. No JVD or lymphadenopathy. CARDIOVASCULAR: Regular rate and rhythm without murmurs, gallops, or rubs. RESPIRATORY: Breath sounds equal bilaterally. No accessory muscle use. GASTROINTESTINAL: Abdomen soft, non-tender, nondistended. MUSCULOSKELETAL: No cyanosis, or edema. NEURO: CN II-XII intact BACK: Nontender without obvious deformity. No CVA tenderness. Hospital Course Patient admitted on the care initially of critical care medicine with consultation to neurology and treated with IV TPA then underwent mechanical thrombectomy of the right M1 segment by interventional radiology. He was continued on treatment per stroke protocol with permissive hypertension with consultation to PT/OT/speech therapy. He was started on Coumadin therapy on and Holter monitoring resulted into a normal sinus rhythm. Patient condition improved, medications for other chronic medical conditions will resume including hypothyroidism. Permissive hypertension were discontinued and oral antihypertensive medication resumed. DVT and GI prophylaxis were provided. Pt Condition on Discharge: Stable Discharge Disposition: Rehab Inpatient Discharge Time: > 30 minutes Discharge Instructions DIET: Follow Instructions for: Heart Healthy Diet, Coumadin (Warfarin) Diet Activities you can perform: Regular-No Restrictions Follow up Referrals: Neurology PCP Follow-up - 2-3 Days New Orders: PT/INR - Daily New Medications: Warfarin (Coumadin) 5 Mg Tab 5 MG PO DAILY@1600 Prevent Blood Clot #30 TAB Continued Medications: Aspirin (Aspirin) 325 Mg Tab 325 MG PO DAILY #30 Ref 0 TAB Atorvastatin (Atorvastatin) 10 Mg Tab 10 MG PO HS Cholesterol Management #30 Ref 0 TAB Opimugk-Tsyscuezt-Avpa (Calcium Magnesium & Zinc) 334-134-5 Mg Tab 1 TAB PO DAILY TAB Captopril (Captopril) 12.5 Mg Tab 12.5 MG PO DAILY Take 1 hour before meals. #60 Ref 0 TAB Dutasteride (Dutasteride) 0.5 Mg Cap 0.5 MG PO DAILY Manage Prostate Problems #30 Ref 0 CAP Levothyroxine (Levothyroxine) 100 Mcg Tab 100 MCG PO DAILY Thyroid #30 Ref 0 TAB Metoprolol Tartrate (Metoprolol Tartrate) 25 Mg Tab 25 MG PO DAILY #30 Ref 0 TAB Multiple Vitamins W/ Minerals (Multivitamin Adults 50+) 1 Tab Tab 1 TAB PO DAILY Alverto Da Silva MD Aug 23, 2016 09:55
[2016-08-23] MEDS ORDERED: COUM5TAB PO (09:57)
[2016-08-23] MEDS: SODIUM CHLOR 0.9% 1000 ML INJ 1,000 ML IV SCH (12:52)
[2016-08-23] MEDS ORDERED: WARFARIN SOD 1 MG TAB PO ONE (16:00)
[2016-08-23] MEDS: WARFARIN SOD 5 MG TAB PO SCH (17:08)
[2016-08-23] MEDS: ATORVASTATIN 10 MG TAB PO SCH (22:04)
[2016-08-24 00:29] VITALS: BP 143/69; PULSE 88; RESP 19; TEMP 97.9; O2SAT 95
[2016-08-24] MEDS: SODIUM CHLOR 0.9% 1000 ML INJ 1,000 ML IV SCH (03:10)
[2016-08-24 05:26] VITALS: BP 153/69; PULSE 71; RESP 18; TEMP 97.1; O2SAT 96
[2016-08-24] MEDS: LEVOTHYROXINE SODIUM 100 MCG TAB PO SCH (06:14)
[2016-08-24] MEDS: INSULIN ASPART SUPPLEMENTAL SCALE SQ SCH (06:16)
[2016-08-24 08:38] LABS: INTERNATIONAL NORMALIZED RATIO 1.4 RATIO; PROTHROMBIN TIME - PATIENT 15.3 SEC (9.8-11.6)
[2016-08-24] MEDS: FINASTERIDE 5 MG TAB PO SCH (08:55)
[2016-08-24] MEDS: HEPARIN SODIUM - SQ 10,000 UNITS/ML VIAL SQ SCH (08:56)
[2016-08-24] MEDS ORDERED: METOPROLOL TARTRATE 25 MG TAB PO SCH (09:00)
[2016-08-24] MEDS ORDERED: CAPTOPRIL 12.5 MG TAB PO SCH (09:00)
[2016-08-24] MEDS: SODIUM CHLORIDE 0.9% FLUSH 5 ML FLUSH IVF SCH (09:00)
--- NOTE | 2016-08-24 09:00 | HHI.PR ---
Subjective Remarks 150/ Objective Vital Signs Date Time Temp Pulse Resp B/P Pulse Ox O2 Delivery O2 Flow Rate FiO2 08/24/16 05:26 97.1 71 18 153/69 96 08/24/16 00:29 97.9 88 19 143/69 95 08/23/16 20:50 98.1 85 19 127/67 97 08/23/16 20:00 93 08/23/16 14:00 99.0 85 17 147/72 97 08/23/16 12:00 96.5 87 18 159/64 100 I/O 08/23/16 08/23/16 08/23/16 08/24/16 08/24/16 08/24/16 07:00 15:00 23:00 07:00 15:00 23:00 Intake Total 700 ml Output Total 600 ml Balance 700 ml -600 ml Intake Oral 700 ml Output Urine Total 600 ml # Voids 1 2 # Bowel Movements 0 1 Result Diagram: 08/21/16 0353 08/21/16 0353 Objective Remarks awake speech clear lvff moves left nl now and ffm left nl Assessment and Plan Assessment and Plan imp much improved after embolectomy today check mri mult small to mod cva mra cow r mca open keep bp up ivh on and oob ok watch left side swallow looks fine ok to eat start coumadin i dw nurse and son 08/24/16 back to nl needs inr 2-2.5 ok to rehab needs daily inr over there today 1.4 no greens holter shows Morales Larry MD Aug 24, 2016 09:00
--- NOTE | 2016-08-24 09:16 | HHI.PR ---
Subjective Remarks Follow-up Ischemic stroke 08/21/16-patient seen and examined in the presence of his son; both reports significant improvement of symptoms since admission, patient denies any chest pain or shortness of breath. Taking by mouth without any complication. Patient was up and ambulated with PT today. Coumadin was started today . 08/22/16-patient seen and examined again presence of his son and daughter-in- law. No acute event overnight, ambulate with assistance without any complication of weakness. Stable this morning and patient is wondering when we be discharged to [facility] in [place] 08/23/16-patient seen and examined; stable and no complaint. In Sinus rhythm and denies any weakness to upper or lower extremities. Son and [id number] by the bedside. She is looking for discharge to [facility] in [place]. 08/24/16-patient seen and examined, no acute event overnight and stable. Looking for discharge today to [place] in [place]. Objective Vitals Vital Signs Date Time Temp Pulse Resp B/P Pulse Ox O2 Delivery O2 Flow Rate FiO2 08/24/16 05:26 97.1 71 18 153/69 96 08/24/16 00:29 97.9 88 19 143/69 95 08/23/16 20:50 98.1 85 19 127/67 97 08/23/16 20:00 93 08/23/16 14:00 99.0 85 17 147/72 97 08/23/16 12:00 96.5 87 18 159/64 100 I/O 08/23/16 08/23/16 08/23/16 08/24/16 08/24/16 08/24/16 07:00 15:00 23:00 07:00 15:00 23:00 Intake Total 700 ml Output Total 600 ml Balance 700 ml -600 ml Intake Oral 700 ml Output Urine Total 600 ml # Voids 1 2 # Bowel Movements 0 1 Result Diagram: 08/21/16 0353 08/21/16 0353 Objective Remarks GENERAL: NAD SKIN: Warm and dry. HEAD: Normocephalic. EYES: No scleral icterus. No injection or drainage. NECK: Supple, trachea midline. No JVD or lymphadenopathy. CARDIOVASCULAR: Regular rate and rhythm without murmurs, gallops, or rubs. RESPIRATORY: Breath sounds equal bilaterally. No accessory muscle use. GASTROINTESTINAL: Abdomen soft, non-tender, nondistended. MUSCULOSKELETAL: No cyanosis, or edema. NEURO: CN II-XII intact BACK: Nontender without obvious deformity. No CVA tenderness. Procedures Mechanical thrombectomy 08/20/16 A/P Problem List: (1) Stroke ICD Code: I63.9 Status: Acute (2) Hypothyroidism ICD Code: E03.9 Status: Chronic (3) Hyperlipidemia ICD Code: E78.5 Status: Chronic (4) Benign hypertension ICD Code: I10 Status: Chronic Assessment and Plan 81-year-old male with: 1-Ischemic stroke with left hemiparesis status post IV TPA followed by mechanical thrombectomy of right M1 segment. Continue management per ischemic stroke protocol. Appreciate input from neurology. s/p permissive hypertension PT/OT/speech therapy.. Coumadin started 08/21/16. Discharge to [facility] today 08/24/16 2-Hypertension: Continue Lopressor 3-History of A. fib: on Coumadin, Lopressor 4-Hyperlipidemia: On Lipitor 5-Hypothyroidism: Continue Synthroid Prophylaxis: SCD. Coumadin Discharge Planning Discharge to [facility] when medically stable Problem Qualifiers (1) Stroke: Qualified Code: I63.9 - Cerebrovascular accident (CVA), unspecified mechanism Alverto Da Silva MD Aug 24, 2016 09:16
[2016-08-24 09:27] VITALS: BP 136/70; PULSE 91; RESP 20; TEMP 97.4; O2SAT 97
== END 2016-08-24 10:17 | DRG 24 ==
LOC: NEPE 19:21 → NEDA 20:22 → N03B 23:45 → N05B 08-21 18:47
PROVIDERS: ADMIT Hospitalist; ATTEND Hospitalist
PROC: 3E03317 Introduction of Other Thrombolytic into Peripheral Vein, Percutaneous Approach (ICD-10-PCS; principal; 2016-08-19)
PROC: 03CG3ZZ Extirpation of Matter from Intracranial Artery, Percutaneous Approach (ICD-10-PCS; 2016-08-19)
PROC: 0T9B70Z Drainage of Bladder with Drainage Device, Via Natural or Artificial Opening (ICD-10-PCS; 2016-08-19)
DX: I63.311 Cerebral infarction due to thrombosis of right middle cerebral artery (principal); C79.51 Secondary malignant neoplasm of bone; G81.94 Hemiplegia, unspecified affecting left nondominant side; I48.91 Unspecified atrial fibrillation; H53.462 Homonymous bilateral field defects, left side; R47.81 Slurred speech; I10 Essential (primary) hypertension; E11.9 Type 2 diabetes mellitus without complications; R11.2 Nausea with vomiting, unspecified; E78.00 Pure hypercholesterolemia, unspecified; I25.2 Old myocardial infarction; E03.9 Hypothyroidism, unspecified; R29.810 Facial weakness; E78.5 Hyperlipidemia, unspecified; Z85.46 Personal history of malignant neoplasm of prostate; Z95.5 Presence of coronary angioplasty implant and graft
CPT/HCPCS: 36223; 36224; 36228; 51702; 61645; 70450; 70496; 70498; 70544; 70553; 71010; 80048; 80061; 80301; 81001; 82435; 82550; 82565; 82607; 82746; 82947; 82948; 83735; 84100; 84132; 84155; 84295; 84439; 84443; 84450; 84460; 84484; 84520; 85025; 85027; 85384; 85610; 85652; 85730; 86850; 86900; 86901; 93005; 93225; 93226; 93306; 96374; 96375; 99144; 99145; A9579; C1760; C1769; C1887; C1894; G0479; J0171; J0461; J0690; J1644; J2250; J2405; J2997; J3010; J7030; J7050; Q9967

== ENCOUNTER 2017-02-05 16:14 | Emergency (ER) | payer MEDICARE, OTHER ==
[~2017-02-05] VITALS: Ht 182.9 cm; Wt 70.9 kg
[~2017-02-05 16:14] MED LIST changes: -AMIO200T PO; +ATOR10TA15 PO; -ATOR20TA42 PO; -AVOD0.5C PO; +CALCTAB11 PO; -CENTTAB9; +COUM5TAB PO; +DUTA1CAP2 PO; +LEVO100T5 PO; +METO25TA3 PO; +MULT1TAB78 PO; -SYNT112T PO
[2017-02-05 16:23] VITALS: BP 136/77; PULSE 92; RESP 16; TEMP 97.8; O2SAT 96
[2017-02-05] MEDS ORDERED: ASPI81CH CHEW (16:43)
[2017-02-05] MEDS ORDERED: WARF-60 PO ×2 (16:43)
[2017-02-05] MEDS ORDERED: DILT120T PO (16:43)
[2017-02-05] MEDS ORDERED: LIDOCAINE HCL 1% 50 ML VIAL INFIL ONE (16:45)
--- NOTE | 2017-02-05 16:58 | PD ---
HPI . Bleeding Chief Complaint: Laceration/Skin Injury Time Seen by Provider: 16:39 Travel History International Travel<30 days: No Contact w/Intl Traveler<30days: No Traveled to known affect area: No History of Present Illness HPI The patient presents with bleeding from his left second toe. He was trimming his toenails when he inadvertently cut the skin. He is on both Coumadin and aspirin. They have been unable to control the bleeding at home. They have tried a dressing and some skin glue without success. The bleeding is mild but persistent. 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) Cardiac Catheterization: Yes (JANUARY 1997) Cardiovascular Problems: Yes (htn on meds) High Cholesterol: Yes Chemotherapy: No Chest Pain: No Congestive Heart Failure: No COPD: No Cerebrovascular Accident: Yes (cva) Diabetes: Yes Patient Takes Glucophage: Yes Diminished Hearing: No Endocrine: No Gastrointestinal Disorders: No GERD: No Glaucoma: No Genitourinary: No Headaches: No Hepatitis: No Hiatal Hernia: No Heparin Induced Thrombocytopen: No Hypertension: Yes Immune Disorder: No Implanted Vascular Access Dvce: No Kidney Stones: No Musculoskeletal: No Neurologic: No Psychiatric: No Reproductive: No Respiratory: No Immunizations Current: No Migraines: No Myocardial Infarction: Yes (X 2) Radiation Therapy: Yes (PREVIOUS) Renal Failure: No Seizures: No Sickle Cell Disease: No Sleep Apnea: No Thyroid Disease: No Ulcer: No Past Surgical History Abdominal Surgery: No AICD: No Appendectomy: No Arteriovenous Shunt: No Cardiac Surgery: Yes Cholecystectomy: Yes Coronary Stent: Yes (X 24 JANUARY 1997) Ear Surgery: No Endocrine Surgery: No Eye Surgery: No Genitourinary Surgery: No Insulin Pump: No Joint Replacement: No Neurologic Surgery: No Oral Surgery: No Pacemaker: No Thoracic Surgery: No Other Surgery: Yes Social History Alcohol Use: No Tobacco Use: No Substance Use: No Allergies-Medications (Allergen,Severity, Reaction): Coded Allergies: No Known Allergies (Verified , 02/05/17) Reported Meds & Prescriptions Reported Meds & Active Scripts Active Reported Warfarin 6 Mg Tab 8 Mg PO 4XWEEK Warfarin 6 Mg Tab 6 Mg PO 3XWEEK Diltiazem (Diltiazem HCl) 120 Mg Tab 120 Mg PO QID Aspirin 81 Mg Chew 81 Mg CHEW DAILY Levothyroxine (Levothyroxine Sodium) 100 Mcg Tab 100 Mcg PO DAILY Review of Systems Except as stated in HPI: all other systems reviewed are Neg Skin: Positive Other (laceration) Hematologic/Lymphatic: Positive: Other (easy bleeding due to Coumadin and aspirin) Physical Exam Narrative GENERAL: SKIN: Warm and dry. He is bleeding from the tip of his left second toe. There is a lot of dried blood and glue on his second and third toes. HEAD: Atraumatic. Normocephalic. EYES: Pupils equal and round. ENT: No nasal bleeding or discharge. Mucous membranes pink and moist. NECK: Trachea midline. CARDIOVASCULAR: Regular rate and rhythm. RESPIRATORY: No accessory muscle use. GASTROINTESTINAL: Abdomen soft, non-tender, nondistended. MUSCULOSKELETAL: No obvious deformities. No edema. NEUROLOGICAL: Awake and alert. No obvious cranial nerve deficits. Motor grossly within normal limits. Normal speech. PSYCHIATRIC: Appropriate mood and affect; insight and judgment normal. Data Data Last Documented VS Vital Signs Date Time Temp Pulse Resp B/P Pulse Ox O2 Delivery O2 Flow Rate FiO2 02/05/17 16:23 97.8 92 16 136/77 96 Orders Lidocaine 1% Inj (50 Ml) (Xylocaine 1% I (02/05/17 16:45) [facility] Medical Decision Making Medical Screen Exam Complete: Yes Emergency Medical Condition: Yes Differential Diagnosis Differential diagnosis includes but is not limited to skin laceration, muscular laceration, tendon laceration, neurovascular laceration. Narrative Course Patient presents for treatment of a laceration on his left second toe. The laceration is very minor but he has been unable to control the bleeding. Procedures Procedure Narrative The area was anesthetized with 1% plain lidocaine. I used this for 2 reasons. The first was to anesthetize the area for cautery. The second was to provide internal pressure in an attempt to control the bleeding. The bleeding was controlled with 3 cc of 1% plain lidocaine. The laceration was then cauterized with a sodium nitrate stick. The laceration was actually more of a superficial skin avulsion than an actual laceration. It only involved epidermal tissue. Diagnosis Primary Impression: Skin avulsion Patient Instructions: General Instructions, Skin Adhesive Care (DC) Disposition: 01 DISCHARGE HOME Condition: Stable Daria Ruiz MD Feb 05, 2017 16:58
== END 2017-02-05 17:20 | disposition home or self-care (01) ==
LOC: PHEFT 16:14
DX: S91.115A Laceration without foreign body of left lesser toe(s) without damage to nail, initial encounter (principal); W26.8XXA Contact with other sharp object(s), not elsewhere classified, initial encounter; E11.9 Type 2 diabetes mellitus without complications; E78.00 Pure hypercholesterolemia, unspecified; I10 Essential (primary) hypertension; I25.2 Old myocardial infarction; I48.91 Unspecified atrial fibrillation; Z86.73 Personal history of transient ischemic attack (TIA), and cerebral infarction without residual deficits; Z95.5 Presence of coronary angioplasty implant and graft; Z79.01 Long term (current) use of anticoagulants; Z79.82 Long term (current) use of aspirin
CPT/HCPCS: 12001

== ENCOUNTER 2017-06-03 09:48 | Inpatient (IN) | payer MEDICARE, OTHER ==
[~2017-06-03] VITALS: Ht 182.9 cm; Wt 65.8 kg
[2017-06-03] VITALS (19 sets, daily range): BP systolic 93–147; BP diastolic 53–73; PULSE 90–101; RESP 18–26; TEMP 97.2–97.5; O2SAT 93–98
[~2017-06-03 09:48] MED LIST changes: -ASPI325T PO; +ASPI81CH CHEW; -ATOR10TA15 PO; -CALCTAB11 PO; -CAPT12.52 PO; -COUM5TAB PO; +DILT120T PO; -DUTA1CAP2 PO; -METO25TA3 PO; -MULT1TAB78 PO; +WARF-60 PO
[2017-06-03] MEDS ORDERED: PRED5TAB PO (10:08)
[2017-06-03] MEDS ORDERED: ZYTI250T PO (10:08)
[2017-06-03] MEDS ORDERED: AVOD0.5C PO (10:08)
--- NOTE | 2017-06-03 10:11 | PD ---
HPI Chief Complaint: General Weakness Time Seen by Provider: 10:07 Travel History International Travel<30 days: No Contact w/Intl Traveler<30days: No Traveled to known affect area: No History of Present Illness HPI This is an 82-year-old male with history of prostate cancer, atrial fibrillation , who presents today with complaints of progressive weakness. Patient and his son reports that they're in [place] for family function when his symptoms started to get become symptomatic. He denies any pain. He reports just weakness. Son states it's to the point where he can barely stand secondary to the weakness. He reports fatigue and shortness of breath on exertion. He also reports a cough with clear white phlegm. There is no reported fevers, chills. PFSH Past Medical History Hx Anticoagulant Therapy: Yes (coumadin) Arthritis: No Asthma: No Atrial Fibrillation: Yes Autoimmune Disease: No Blood Disorders: No Heart Rhythm Problems: No Cancer: Yes (PROSTATE METS TO BONE) Cardiac Catheterization: Yes (JANUARY 1997) Cardiovascular Problems: Yes (htn on meds) High Cholesterol: Yes Chemotherapy: No Chest Pain: No Congestive Heart Failure: No COPD: No Cerebrovascular Accident: Yes (cva) Diabetes: Yes Diminished Hearing: No Endocrine: No Gastrointestinal Disorders: No GERD: No Glaucoma: No Genitourinary: No Headaches: No Hepatitis: No Hiatal Hernia: No Heparin Induced Thrombocytopen: No Hypertension: Yes Immune Disorder: No Implanted Vascular Access Dvce: No Kidney Stones: No Musculoskeletal: No Neurologic: No Psychiatric: No Reproductive: No Respiratory: No Immunizations Current: No Migraines: No Myocardial Infarction: Yes (X 2) Radiation Therapy: Yes (PREVIOUS) Renal Failure: No Seizures: No Sickle Cell Disease: No Sleep Apnea: No Thyroid Disease: No Ulcer: No Past Surgical History Abdominal Surgery: No AICD: No Appendectomy: No Arteriovenous Shunt: No Cardiac Surgery: Yes Cholecystectomy: Yes Coronary Stent: Yes (X 24 JANUARY 1997) Ear Surgery: No Endocrine Surgery: No Eye Surgery: No Genitourinary Surgery: No Insulin Pump: No Joint Replacement: No Neurologic Surgery: No Oral Surgery: No Pacemaker: No Thoracic Surgery: No Other Surgery: Yes Social History Alcohol Use: No Tobacco Use: No Substance Use: No Allergies-Medications (Allergen,Severity, Reaction): Coded Allergies: No Known Allergies (Verified , 06/03/17) Reported Meds & Prescriptions Reported Meds & Active Scripts Active Reported Diltiazem CD 24 HR 120 Mg Caper 120 Mg PO DAILY Zytiga (Abiraterone) 250 Mg Tab 1,000 Mg PO DAILY Hazardous agent; use appropriate precautions for handling & disposal. Take on an empty stomach, 1 hr before or 2 hrs after food. Swallow whole, do not crush or chew. Avodart (Dutasteride) 0.5 Mg Cap 0.5 Mg PO EVERY OTHER DAY Prednisone 5 Mg Tab 5 Mg PO BID Warfarin 6 Mg Tab 8 Mg PO 4XWEEK Warfarin 6 Mg Tab 6 Mg PO 3XWEEK Aspirin 81 Mg Chew 81 Mg CHEW DAILY Levothyroxine (Levothyroxine Sodium) 100 Mcg Tab 100 Mcg PO DAILY Review of Systems Except as stated in HPI: all other systems reviewed are Neg General / Constitutional: No: Fever, Chills HENT: No: Headaches, Neck Pain Cardiovascular: No: Chest Pain or Discomfort, Palpitations Respiratory: Positive: Cough, Shortness of Breath Gastrointestinal: No: Nausea (on exertion), Vomiting, Abdominal Pain Genitourinary: No: Frequency, Dysuria Musculoskeletal: Positive: Weakness (generalized), No: Pain Neurologic: Positive: Weakness (generalized), No: Dizziness, Headache, Change in Mentation Physical Exam Narrative GENERAL: Well-developed well-nourished male in no acute respiratory distress. SKIN: Focused skin assessment warm/dry. HEAD: Atraumatic. Normocephalic. EYES: No scleral icterus. No injection or drainage. ENT: No nasal bleeding or discharge. Mucous membranes pink and dry. NECK: Trachea midline. No JVD. Supple. CARDIOVASCULAR: Irregularly irregular with a rate in the 1 teens to 120s. RESPIRATORY: No accessory muscle use. Bilateral fine Rales. No rhonchi. GASTROINTESTINAL: Abdomen soft, non-tender, nondistended. MUSCULOSKELETAL: No obvious deformities. No clubbing. No cyanosis. No edema. NEUROLOGICAL: Awake and alert. No obvious cranial nerve deficits. Motor grossly within normal limits. Normal speech. Data Data Last Documented VS Vital Signs Date Time Temp Pulse Resp B/P (MAP) Pulse Ox O2 Delivery O2 Flow Rate FiO2 06/03/17 10:22 97 Nasal Cannula 2.00 06/03/17 10:10 19 06/03/17 09:50 97.5 98 Orders Orders Complete Blood Count With Diff (06/03/17 10:11) Comprehensive Metabolic Panel (06/03/17 10:11) Ckmb (Isoenzyme) Profile (06/03/17 10:11) Troponin I (06/03/17 10:11) B-Type Natriuretic Peptide (06/03/17 10:11) Prothrombin Time / Inr (Pt) (06/03/17 10:11) Act Partial Throm Time (Ptt) (06/03/17 10:11) Urinalysis - C+S If Indicated (06/03/17 10:11) Thyroid Stimulating Hormone (06/03/17 10:11) Chest, Pa & Lat (06/03/17 10:11) Iv Access Insert/Monitor (06/03/17 10:11) Ecg Monitoring (06/03/17 10:11) Oxygen Administration (06/03/17 10:11) Oximetry (06/03/17 10:11) Diltiazem Inj (Cardizem Inj) (06/03/17 13:15) Diltiazem Inj (Cardizem Inj) (06/03/17 13:15) Furosemide Inj (Lasix Inj) (06/03/17 13:15) Electrocardiogram (06/03/17 10:05) Admit Order (Ed Use Only) (06/03/17 13:22) Labs Laboratory Tests Test 06/03/17 10:10 White Blood Count 8.9 TH/MM3 Red Blood Count 3.99 MIL/MM3 Hemoglobin 13.4 GM/DL Hematocrit 39.8 % Mean Corpuscular Volume 99.5 FL Mean Corpuscular Hemoglobin 33.5 PG Mean Corpuscular Hemoglobin Concent 33.6 % Red Cell Distribution Width 14.6 % Platelet Count 200 TH/MM3 Mean Platelet Volume 8.3 FL Neutrophils (%) (Auto) 88.9 % Lymphocytes (%) (Auto) 4.8 % Monocytes (%) (Auto) 4.9 % Eosinophils (%) (Auto) 1.0 % Basophils (%) (Auto) 0.4 % Neutrophils # (Auto) 7.9 TH/MM3 Lymphocytes # (Auto) 0.4 TH/MM3 Monocytes # (Auto) 0.4 TH/MM3 Eosinophils # (Auto) 0.1 TH/MM3 Basophils # (Auto) 0.0 TH/MM3 CBC Comment DIFF FINAL Differential Comment Prothrombin Time 19.6 SEC Prothromb Time International Ratio 1.7 RATIO Activated Partial Thromboplast Time 36.4 SEC Blood Urea Nitrogen 17 MG/DL Creatinine 0.94 MG/DL Random Glucose 151 MG/DL Total Protein 5.7 GM/DL Albumin 2.6 GM/DL Calcium Level 7.8 MG/DL Alkaline Phosphatase 150 U/L Aspartate Amino Transf (AST/SGOT) 24 U/L Alanine Aminotransferase (ALT/SGPT) 21 U/L Total Bilirubin 1.5 MG/DL Sodium Level 134 MEQ/L Potassium Level 3.5 MEQ/L Chloride Level 100 MEQ/L Carbon Dioxide Level 24.0 MEQ/L Anion Gap 10 MEQ/L Estimat Glomerular Filtration Rate 76 ML/MIN Total Creatine Kinase 61 U/L Troponin I 0.05 NG/ML B-Type Natriuretic Peptide 496 PG/ML 25-Hydroxy Vitamin D Total 10.5 ng/ML Thyroid Stimulating Hormone 3rd Gen 1.400 uIU/ML MDM Medical Decision Making Medical Screen Exam Complete: Yes Emergency Medical Condition: Yes Differential Diagnosis Pneumonia versus CHF versus metabolic derangement versus anemia versus A. fib with RVR Narrative Course 82-year-old male with history of prostate cancer, presents today with complaints of weakness and shortness of breath. Patient was recently in [place] admitted. He had blood work and a reported chest x-ray at that time. Patient also was given IVD fluid yesterday by his oncologist. Patient stills feels weak. Chest x-ray shows congestive heart failure. His BNP is elevated. He'll be admitted to the hospital. Case was discussed with the hospitalist who agreed to the admission. Patient was also noted to have atrial fibrillation with RVR. He was started on a diltiazem drip after bolus. Diagnosis Primary Impression: CHF (congestive heart failure) Additional Impressions: Atrial fibrillation with RVR CAD (coronary artery disease) prostate cancer Admitting Information Admitting Physician Requests: Admit Orlando Belle MD Jun 03, 2017 10:11
[2017-06-03 10:48] LABS: AUTOMATED NEUTROPHIL # 7.9 TH/MM3 (1.8-7.7); BASOPHIL % 0.4 % (0.0-2.0); EOSINOPHIL # 0.1 TH/MM3 (0-0.4); HEMATOCRIT 39.8 % (39.0-51.0); HEMO FLAGS DIFF FINAL; LYMPH % 4.8 % (9.0-44.0); LYMPHOCYTE # 0.4 TH/MM3 (1.0-4.8); MEAN CELL VOLUME 99.5 FL (80.0-100.0); MEAN CORPUSCULAR HEMOGLOBIN 33.5 PG (27.0-34.0); MEAN CORPUSCULAR HGB CONC 33.6 % (32.0-36.0); MONO % 4.9 % (0.0-8.0); NEUT % 88.9 % (16.0-70.0); PLATELET COUNT 200 TH/MM3 (150-450); RED BLOOD COUNT 3.99 MIL/MM3 (4.50-5.90); RED CELL DISTRIBUTION WIDTH 14.6 % (11.6-17.2); WHITE BLOOD COUNT 8.9 TH/MM3 (4.0-11.0)
[2017-06-03 10:58] LABS: APTT (PATIENT) 36.4 SEC (24.3-30.1); INTERNATIONAL NORMALIZED RATIO 1.7 RATIO; PROTHROMBIN TIME - PATIENT 19.6 SEC (9.8-11.6)
--- NOTE | 2017-06-03 10:58 | RADRPT ---
EXAM DATE/TIME: 06/03/2017 10:37 [facility] COMPARISON: No previous studies available for comparison. INDICATIONS : Shortness of breath. MEDICAL HISTORY : Hypertension. Cardiovascular disease Diabetes mellitus type 1.Prostate cancer. SURGICAL HISTORY : Stents. ENCOUNTER: Initial ACUITY: 3 days PAIN SCORE: 0/10 LOCATION: Bilateral chest FINDINGS: PA and lateral views of the chest demonstrate bilateral interstitial prominence with some patchy airs pace disease. Small bilateral effusions are noted. Heart is at the upper limits of normal in size. CONCLUSION: Interstitial prominence and small bilateral effusions characteristic of pulmonary congestion. Pranay Deng MD on June 03, 2017 at 10:55 Board Certified Radiologist. This report was verified electronically.
[2017-06-03 11:07] LABS: ANION GAP 10 MEQ/L (5-15); AST (GOT) 24 U/L (15-37); BLOOD UREA NITROGEN 17 MG/DL (7-18); CHLORIDE 100 MEQ/L (98-107); GLOMERULAR FILTRATION RATE 76 ML/MIN (>89); POTASSIUM 3.5 MEQ/L (3.5-5.1); SODIUM (NA) 134 MEQ/L (136-145)
[2017-06-03 11:09] LABS: ALT (GPT) 21 U/L (12-78)
[2017-06-03 11:19] LABS: ALKALINE PHOSPHATASE 150 U/L (45-117); TOTAL BILIRUBIN ADULT 1.5 MG/DL (0.2-1.0)
[2017-06-03 11:23] LABS: CREATINE KINASE 61 U/L (39-308)
[2017-06-03] MEDS ORDERED: DILTIAZEM HCL 25 MG/5 ML VIAL IV PUSH ONE (13:15)
[2017-06-03] MEDS ORDERED: FUROSEMIDE 20 MG/2 ML VIAL IV PUSH ONE (13:15)
[2017-06-03] MEDS: DILTIAZEM INJ 125 MG in SODIUM CHLORIDE 0.9% INJ 100 ML IV PRN (13:46)
[2017-06-03] MEDS ORDERED: NALOXONE HCL 0.4 MG/ML AMP IV PUSH PRN (14:30)
[2017-06-03] MEDS ORDERED: SODIUM CHLORIDE 0.9% FLUSH 10 ML FLUSH IV FLUSH PRN (14:30)
[2017-06-03] MEDS ORDERED: ACETAMINOPHEN 325 MG TAB PO PRN ×2 (14:30)
[2017-06-03] MEDS ORDERED: DILT-60 PO (14:42)
--- NOTE | 2017-06-03 14:55 | EKG ---
Date Performed: 06/03/2017 Time Performed: 10:05:27 PTAGE: 82 years EKG: ATRIAL FIBRILLATION WITH RAPID VENTRICULAR RESPONSE POSSIBLE ANTERIOR MYOCARDIAL INFARCTION POSSIBLE INFERIOR MYOCARDIAL INFARCTION ABNORMAL ECG PREVIOUS TRACING : 08/19/2016 19.40 No significant change from previous tracing noted. DOCTOR: Len Ambrosio Interpretating Date/Time 06/03/2017 14:55:04
[2017-06-03 15:01] LABS: BLOOD, URINE NEG (NEG); COMMENT (UR) CULT NOT INDICATED; CULTURE IF INDICATED CULT NOT INDICATED; GLUCOSE,URINE NEG (NEG); KETONE, URINE NEG (NEG); MUCUS URINE FEW /lpf (OCC); NITRITE,URINE NEG (NEG); PH, URINE 6.5 (5.0-8.5); URINE COLOR YELLOW (YELLW/STRAW)
--- NOTE | 2017-06-03 15:02 | HHI.HP ---
[facility]Staff Admission Diagnosis atrial fibrillation with rvr, congestive heart failure, prostate can Diagnoses: Chief Complaint: Weakness Travel History International Travel<30 Days: No Contact w/Intl Traveler <30 Da: No Traveled to Known Affected Are: No History of Present Illness The patient is an 82-year-old male with a past medical history of prostate cancer, atrial fibrillation and CAD who is presenting to the hospital with weakness. This past the patient started to notice that his legs were getting weak. He was in [place] and ended up going to the emergency department there. He was hydrated and discharged home. He drove back to [facility] with his family on Wednesday. He said that his weakness got even worse. He also describes dizziness when standing up from a seated position. He says he sometimes feels like falling to the floor but has not passed out. He went to his oncologist yesterday (Dr. Ferrell) where he received IV hydration and was sent home. This morning the patient was unable to ambulate, so he was brought to the hospital. The patient says he has been eating and drinking well. He does endorse a dry cough. His family states that his breathing seems to have gotten worse. The patient denies any chest pain, diarrhea, fever or urinary difficulties. Review of Systems Except as stated in HPI: all other systems reviewed are Neg Past Family Social History Past Medical History CVA with residual left-sided weakness Atrial fibrillation CAD status post 4 stents Prostate cancer with metastasis to bone Hypertension Hypothyroidism Past Surgical History Cholecystectomy CVA status post thrombectomy Allergies: Coded Allergies: No Known Allergies (Verified , 06/03/17) Active Ordered Medications Current Medications Medications (Trade) Dose Ordered Sig/Farzana Route Start Time Stop Time Status Last Admin Diltiazem HCl 125 mg/Sodium Chloride 125 ml @ 5 mls/hr TITRATE PRN IV 06/03/17 13:15 06/03/17 13:46 (NS Flush) 2 ml UNSCH PRN IV FLUSH 06/03/17 14:30 UNV (NS Flush) 2 ml BID IV FLUSH 06/03/17 21:00 UNV (Tylenol) 650 mg Q4H PRN PO 06/03/17 14:30 UNV (Tylenol) 650 mg Q6H PRN PO 06/03/17 14:30 UNV (Narcan Inj) 0.4 mg UNSCH PRN IV PUSH 06/03/17 14:30 UNV (Radha-Colace) 1 tab BID PO 06/03/17 21:00 UNV Pharmacy Profile Note 0 ml @ 0 mls/hr UNSCH OTHER 06/03/17 14:30 UNV (Coumadin) 5 mg DAILY@1600 PO 06/03/17 16:00 UNV (Cardizem) 30 mg QID PO 06/03/17 15:00 UNV Family History CAD Social History The patient does not smoke or drink Physical Exam Vital Signs Vital Signs Date Time Temp Pulse Resp B/P (MAP) Pulse Ox O2 Delivery O2 Flow Rate FiO2 06/03/17 14:25 Nasal Cannula 2.00 06/03/17 14:15 98 26 104/56 (72) 97 Nasal Cannula 2.00 06/03/17 13:46 101 100/58 06/03/17 13:43 101 20 110/53 (72) 98 Nasal Cannula 2.00 06/03/17 10:22 97 Nasal Cannula 2.00 06/03/17 10:22 97 Nasal Cannula 2.00 06/03/17 10:10 19 97 Nasal Cannula 2.00 06/03/17 09:50 97.5 98 19 107/56 (73) 93 Room Air Physical Exam GENERAL: Well-developed, well-nourished male in no acute respiratory distress. SKIN: Focused skin assessment warm/dry. HEAD: Atraumatic. Normocephalic. EYES: No scleral icterus. No injection or drainage. ENT: No nasal bleeding or discharge. Mucous membranes pink and dry. NECK: Trachea midline. No JVD. Supple. CARDIOVASCULAR: Irregularly irregular, tachycardic. RESPIRATORY: No accessory muscle use. Bilateral fine Rales. No rhonchi. GASTROINTESTINAL: Abdomen soft, non-tender, nondistended. MUSCULOSKELETAL: No obvious deformities. No clubbing. No cyanosis. No edema. NEUROLOGICAL: Awake and alert. No obvious cranial nerve deficits. Moves upper and lower extremities. Normal speech. PSYCH: Mood and affect appropriate. Laboratory Laboratory Tests Test 06/03/17 10:10 06/03/17 14:44 White Blood Count 8.9 Red Blood Count 3.99 Hemoglobin 13.4 Hematocrit 39.8 Mean Corpuscular Volume 99.5 Mean Corpuscular Hemoglobin 33.5 Mean Corpuscular Hemoglobin Concent 33.6 Red Cell Distribution Width 14.6 Platelet Count 200 Mean Platelet Volume 8.3 Neutrophils (%) (Auto) 88.9 Lymphocytes (%) (Auto) 4.8 Monocytes (%) (Auto) 4.9 Eosinophils (%) (Auto) 1.0 Basophils (%) (Auto) 0.4 Neutrophils # (Auto) 7.9 Lymphocytes # (Auto) 0.4 Monocytes # (Auto) 0.4 Eosinophils # (Auto) 0.1 Basophils # (Auto) 0.0 CBC Comment DIFF FINAL Differential Comment Prothrombin Time 19.6 Prothromb Time International Ratio 1.7 Activated Partial Thromboplast Time 36.4 Blood Urea Nitrogen 17 Creatinine 0.94 Random Glucose 151 Total Protein 5.7 Albumin 2.6 Calcium Level 7.8 Alkaline Phosphatase 150 Aspartate Amino Transf (AST/SGOT) 24 Alanine Aminotransferase (ALT/SGPT) 21 Total Bilirubin 1.5 Sodium Level 134 Potassium Level 3.5 Chloride Level 100 Carbon Dioxide Level 24.0 Anion Gap 10 Estimat Glomerular Filtration Rate 76 Total Creatine Kinase 61 Troponin I 0.05 B-Type Natriuretic Peptide 496 Thyroid Stimulating Hormone 3rd Gen 1.400 Result Diagram: 06/03/17 1010 06/03/17 1010 Imaging Last Impressions Chest X-Ray 06/03/17 1011 Signed Impressions: Service Date/Time: May 10:37 - CONCLUSION: Interstitial prominence and small bilateral effusions characteristic of pulmonary congestion. MD Lupe Lomeli VTE Risk Assessment Caprini VTE Risk Assessment: Mod/High Risk (score >= 2) Caprini Risk Assessment Model Point Value = 1 Point Value = 2 Point Value = 3 Point Value = 5 Age 41-60 Minor surgery BMI > 25 kg/m2 Swollen legs Varicose veins or History of unexplained or recurrent spontaneous Oral contraceptives or hormone replacement Sepsis (< 1 month) Serious lung disease, including pneumonia (< 1 month) Abnormal pulmonary function Acute myocardial infarction Congestive heart failure (< 1 month) History of inflammatory bowel disease Medical patient at bed rest Age 61-74 Arthroscopic surgery Major open surgery (> 45 min) Laparoscopic surgery (> 45 min) Malignancy Confined to bed (> 72 hours) Immobilizing plaster cast Central venous access Age >= 75 History of VTE Family history of VTE Factor V Leiden Prothrombin [id number] Lupus anticoagulant Anticardiolipin antibodies Elevated serum homocysteine Heparin-induced thrombocytopenia Other congenital or acquired thrombophilia Stroke (< 1 month) Elective arthroplasty Hip, pelvis, or leg fracture Acute spinal cord injury (< 1 month) Prophylaxis Regimen Total Risk Factor Score Risk Level Prophylaxis Regimen 0-1 Low Early ambulation 2 Moderate Order ONE of the following: *Sequential Compression Device (SCD) *Heparin 5000 units SQ BID 3-4 Higher Order ONE of the following medications: *Heparin 5000 units SQ TID *Enoxaparin/Lovenox 40 mg SQ daily (WT < 150 kg, CrCl > 30 mL/min) *Enoxaparin/Lovenox 30 mg SQ daily (WT < 150 kg, CrCl > 10-29 mL/min) *Enoxaparin/Lovenox 30 mg SQ BID (WT < 150 kg, CrCl > 30 mL/min) AND/OR *Sequential Compression Device (SCD) 5 or more Highest Order ONE of the following medications: *Heparin 5000 units SQ TID (Preferred with Epidurals) *Enoxaparin/Lovenox 40 mg SQ daily (WT < 150 kg, CrCl > 30 mL/min) *Enoxaparin/Lovenox 30 mg SQ daily (WT < 150 kg, CrCl > 10-29 mL/min) *Enoxaparin/Lovenox 30 mg SQ BID (WT < 150 kg, CrCl > 30 mL/min) AND *Sequential Compression Device (SCD) Assessment and Plan Assessment and Plan Atrial fibrillation with RVR The patient is on 120 mg of diltiazem by mouth daily at home. He is also on Coumadin. He presents with a heart rate in the 120s. He was started on a Cardizem drip in the emergency department. TSH within normal limits. - Continue Cardizem drip for now. - Start diltiazem 30 mg by mouth every 6 hours. - Cardiology consultation requested. - Echocardiogram ordered. - Monitor on telemetry. - continue Coumadin and ASA. Acute systolic heart failure The patient last had an echocardiogram in July 2016 which revealed an ejection fraction of 45-50%. Likely exacerbated by A fib. - rate control as above. - continue Lasix 20 mg IV BID. Follow Is and Os. - repeat echo. - check lipid profile, HgbA1c. - follow up with cardiology. Lower extremity weakness Multifactorial, s/t A fib, CHF and metastatic prostate cancer. 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 TSH WNL. - check vit b12 level, vitamin D level. - PT/ OT. - continue antineoplastic agent. Prostate cancer With mets to his bones. Follows with Dr. Ferrell. - continue Zytiga and prednisone. - pain control as needed. - outpt follow-up. PPx: Coumadin Code Status Full Discussed Condition With Pt, pt's family, nurse, Dr. Belle Physician Certification 2 Midnight Certification Type: Admission for Inpatient Services Order for Inpatient Services The services are ordered in accordance with Medicare regulations or non- Medicare payer requirements, as applicable. In the case of services not specified as inpatient-only, they are appropriately provided as inpatient services in accordance with the 2-midnight benchmark. Estimated LOS (days): 2 days is the estimated time the patient will need to remain in the hospital, assuming treatment plan goals are met and no additional complications. Post-Hospital Plan: Not yet determined Delvin Martinez DO Jun 03, 2017 15:02
[2017-06-03] MEDS ORDERED: POTASSIUM CHLORIDE 25 MEQ EFFERVESCENT TAB PO ONE (17:00)
[2017-06-03] MEDS: DILTIAZEM HCL 30 MG TAB PO SCH ×3 (17:49→22:05)
[2017-06-03] MEDS: FUROSEMIDE 20 MG/2 ML VIAL IV PUSH SCH (17:51)
[2017-06-03] MEDS: WARFARIN SOD 5 MG TAB PO SCH (17:52)
--- NOTE | 2017-06-03 18:37 | MB ---
cc: EMMA JIMENEZ MD DATE OF CONSULTATION 06/03/17 HISTORY OF PRESENT ILLNESS Mr. Giron is an 82-year-old white male with a history of chronic atrial fibrillation, coronary artery disease, myocardial infarction, coronary stenting who went recently to [place] with his son. He was dizzy and lightheaded and was hydrated in the emergency room. He drove back to [facility]. He has developed again weakness, dizziness. He has had chronic shortness of breath. He saw his oncologist, Dr. Ferrell, and was given IV hydration. He has had difficulty ambulating and was brought to the hospital today. He has shortness of breath, dry cough but no chest pain or peripheral edema. PAST MEDICAL HISTORY 1. Coronary artery disease with myocardial function on two occasions and placement of four stents in 1996, 2. History of atrial fibrillation 3. Left ventricular hypertrophy 4. Rheumatic fever 5. 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 Hypertension, 7. Dyslipidemia, 8. Hypothyroidism 9. Prostate cancer treated with radiation with metastasis to the bones. 10. History of thrombectomy 11. History of TPA and cardioversion. 12. History of coronary artery disease with moderate bilateral cardiac stenosis 50-69%. This was followed by Dr. Mcghee. MEDICATIONS At home 1. Aspirin. 2. Coumadin 3. Avodart 4. Levothyroxine 5. Multivitamin 6. Dulcolax 7. Calcium. 8. Diltiazem 240 mg daily. ALLERGIES None. SOCIAL HISTORY The patient does not smoke. He does not drink alcohol. He is accompanied by his son. FAMILY HISTORY Negative for heart disease. REVIEW OF SYSTEMS Otherwise negative. PHYSICAL EXAMINATION VITAL SIGNS: Blood pressure 106/66, pulse 102 and irregular. HEENT: Negative. 2+ carotid upstrokes, no bruits. LUNGS: Few crackles. HEART: Irregularly irregular. 1/6 systolic murmur, no gallop or rub. ABDOMEN: Soft, no bruits EXTREMITIES: Without edema, 1-2+ distal pulses NEUROLOGIC: Grossly nonfocal. CARDIOLOGY STUDIES EKG was reviewed and showed atrial fibrillation with rapid ventricular response, anteroseptal Q-waves, inferior Q-waves and nonspecific T-wave changes. LABORATORY DATA Hemoglobin 13.4, potassium 3.5, creatinine 0.9, BNP 496, troponin 0.05. DIAGNOSES 1. Atrial fibrillation with rapid ventricular response. 2. Acute exacerbation of chronic systolic congestive heart failure. 3. Ischemic cardiomyopathy with mild left ventricular systolic dysfunction. 4. Coronary artery disease, history of myocardial function and coronary stenting. 5. History of CVA 6. Hypertension 7. Dyslipidemia. 8. Cardiovascular disease with moderate bilateral carotid artery stenosis. 9. History of prostate cancer 10. Hypothyroidism DISPOSITION Mr. Giron will be monitored on telemetry. He was found to be in atrial fibrillation with rapid ventricular response. Last time he was seen by Dr. Watts, his primary sales and customer relations rep, in October of this year he was in sinus rhythm. He has been off Multaq due to cost and off Amiodarone due to abnormal pulmonary function tests. We will continue therapy for congestive heart failure including IV diuresis. We will obtain echocardiogram to evaluate his left ventricular function. I will follow him for cardiology during hospitalization. He will be scheduled for followup with Dr. Watts, his primary sales and customer relations rep, shortly after discharge. MD MYA Boyer/ /5:34 PM /6:15 PM
[2017-06-03] MEDS ORDERED: ABIRATERONE 1000 MG PO SCH (21:00)
[2017-06-03] MEDS: DOCUSATE SODIUM 50 MG/SENNA 8.6 MG TAB PO SCH ×2 (21:00→22:05)
[2017-06-03] MEDS: predniSONE 5 MG TAB PO SCH (22:05)
[2017-06-03] MEDS: SODIUM CHLORIDE 0.9% FLUSH 10 ML FLUSH IV FLUSH SCH (22:06)
[2017-06-03 22:32] LABS: MAGNESIUM 2.2 MG/DL (1.5-2.5)
[2017-06-04] VITALS (10 sets, daily range): BP systolic 110–133; BP diastolic 56–66; PULSE 74–107; RESP 18–20; TEMP 97.2–97.9; O2SAT 96–99
[2017-06-04] MEDS: LEVOTHYROXINE SODIUM 100 MCG TAB PO SCH (06:14)
--- NOTE | 2017-06-04 07:09 | EKG ---
Date Performed: 06/03/2017 Time Performed: 18:11:45 PTAGE: 82 years EKG: ATRIAL FIBRILLATION ANTERIOR MYOCARDIAL INFARCTION INFERIOR MYOCARDIAL INFARCTION ABNORMAL ECG PREVIOUS TRACING : 06/03/2017 10.05 No significant change from previous tracing noted. DOCTOR: Len Ambrosio Interpretating Date/Time 06/04/2017 07:08:31
[2017-06-04 08:10] LABS: INTERNATIONAL NORMALIZED RATIO 1.8 RATIO; PROTHROMBIN TIME - PATIENT 20.2 SEC (9.8-11.6)
[2017-06-04 08:13] LABS: AUTOMATED NEUTROPHIL # 4.8 TH/MM3 (1.8-7.7); BASOPHIL % 0.3 % (0.0-2.0); EOSINOPHIL # 0.1 TH/MM3 (0-0.4); HEMATOCRIT 35.9 % (39.0-51.0); HEMO FLAGS DIFF FINAL; LYMPH % 5.7 % (9.0-44.0); LYMPHOCYTE # 0.3 TH/MM3 (1.0-4.8); MEAN CELL VOLUME 97.8 FL (80.0-100.0); MEAN CORPUSCULAR HEMOGLOBIN 33.6 PG (27.0-34.0); MEAN CORPUSCULAR HGB CONC 34.4 % (32.0-36.0); MONO % 6.8 % (0.0-8.0); NEUT % 86.2 % (16.0-70.0); PLATELET COUNT 168 TH/MM3 (150-450); RED BLOOD COUNT 3.67 MIL/MM3 (4.50-5.90); RED CELL DISTRIBUTION WIDTH 14.3 % (11.6-17.2); WHITE BLOOD COUNT 5.5 TH/MM3 (4.0-11.0)
[2017-06-04 08:46] LABS: ANION GAP 7 MEQ/L (5-15); BICARBONATE 28.5 MEQ/L (21.0-32.0); BLOOD UREA NITROGEN 17 MG/DL (7-18); CHLORIDE 101 MEQ/L (98-107); GLOMERULAR FILTRATION RATE 115 ML/MIN (>89); POTASSIUM 3.7 MEQ/L (3.5-5.1); SODIUM (NA) 136 MEQ/L (136-145)
[2017-06-04 08:47] LABS: ALKALINE PHOSPHATASE 130 U/L (45-117); ALT (GPT) 20 U/L (12-78); AST (GOT) 25 U/L (15-37); TOTAL BILIRUBIN ADULT 1.3 MG/DL (0.2-1.0)
[2017-06-04] MEDS: SODIUM CHLORIDE 0.9% FLUSH 10 ML FLUSH IV FLUSH SCH ×2 (09:00→21:00)
[2017-06-04] MEDS: DOCUSATE SODIUM 50 MG/SENNA 8.6 MG TAB PO SCH ×2 (09:00→21:00)
--- NOTE | 2017-06-04 10:01 | HHI.PR ---
Subjective Remarks Patient seen this morning around 10 AM. Says he feels all right. Denies any chest pain or shortness of breath. Objective Vital Signs Date Time Temp Pulse Resp B/P (MAP) Pulse Ox O2 Delivery O2 Flow Rate FiO2 06/04/17 08:00 97.4 92 20 110/56 (74) 96 06/04/17 04:02 97.8 91 18 133/66 (88) 96 06/04/17 04:00 92 06/04/17 00:00 102 06/03/17 23:27 97.2 93 18 122/59 (80) 98 06/03/17 21:02 95 2.00 06/03/17 20:00 Room Air 06/03/17 20:00 92 06/03/17 19:58 97.3 100 20 118/63 (81) 97 06/03/17 19:26 Nasal Cannula 1.00 06/03/17 18:35 97.3 91 18 126/66 (86) 97 06/03/17 18:33 06/03/17 18:00 100 147/73 (97) 06/03/17 17:30 96 19 117/58 (77) 97 Nasal Cannula 2.00 06/03/17 17:00 92 120/62 (81) 06/03/17 16:45 92 110/58 (75) 06/03/17 16:00 92 93/55 (68) 06/03/17 15:30 90 100/57 (71) 06/03/17 15:00 100 106/66 (79) 96 Nasal Cannula 2.00 06/03/17 14:45 94 100/69 (79) 97 Nasal Cannula 2.00 06/03/17 14:30 96 105/65 (78) 96 Nasal Cannula 2.00 06/03/17 14:25 Nasal Cannula 2.00 06/03/17 14:15 98 26 104/56 (72) 97 Nasal Cannula 2.00 06/03/17 14:00 96 110/62 (78) 98 Nasal Cannula 2.00 06/03/17 13:46 101 100/58 06/03/17 13:43 101 20 110/53 (72) 98 Nasal Cannula 2.00 06/03/17 10:22 97 Nasal Cannula 2.00 06/03/17 10:22 97 Nasal Cannula 2.00 06/03/17 10:10 19 97 Nasal Cannula 2.00 I/O 06/03/17 06/03/17 06/03/17 06/04/17 06/04/17 06/04/17 06:59 14:59 22:59 06:59 14:59 22:59 Intake Total 325 ml Output Total 150 ml 875 ml Balance -150 ml -550 ml Intake Oral 240 ml IV Total 85 ml Output Urine Total 150 ml 875 ml # Voids 1 # Bowel Movements 0 Result Diagram: 06/04/17 0700 06/04/17 07 Objective Remarks GENERAL: patient sitting up in bed. Appears comfortable. SKIN: Warm and dry. HEAD: Normocephalic. EYES: No scleral icterus. No injection or drainage. NECK: Supple, trachea midline. No JVD. CARDIOVASCULAR: Regular rate and rhythm without murmurs, gallops, or rubs. RESPIRATORY: Breath sounds equal bilaterally. No accessory muscle use. GASTROINTESTINAL: Abdomen soft, non-tender, nondistended. MUSCULOSKELETAL: No cyanosis, or edema. BACK: Nontender without obvious deformity. No CVA tenderness. A/P Assessment and Plan ========06/04/17===== //Hypovitaminosis D. Vitamin D level low. Replace vitamin D. Atrial fibrillation. Await echocardiogram. Reordered. Appreciate cardiology assistance. Medications have been adjusted by cardiology. Discussed with nursing today. //Bilirubin elevation. We'll check bilirubin components.Mostly indirect. 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 //Atrial fibrillation with RVR The patient is on 120 mg of diltiazem by mouth daily at home. He is also on Coumadin. He presents with a heart rate in the 120s. He was started on a Cardizem drip in the emergency department. TSH within normal limits. - Continue Cardizem drip for now. - Start diltiazem 30 mg by mouth every 6 hours. - Cardiology consultation requested. - Echocardiogram ordered. - Monitor on telemetry. - continue Coumadin and ASA. //Acute systolic heart failure The patient last had an echocardiogram in July 2016 which revealed an ejection fraction of 45-50%. Likely exacerbated by A fib. - rate control as above. - continue Lasix 20 mg IV BID. Follow Is and Os. - repeat echo. - check lipid profile, HgbA1c. - follow up with cardiology. //extremity weakness Multifactorial, s/t A fib, CHF and metastatic prostate cancer. 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 TSH WNL. - check vit b12 level, vitamin D level. - PT/ OT. - continue antineoplastic agent. //Prostate cancer With mets to his bones. Follows with Dr. Ferrell. - continue Zytiga and prednisone. - pain control as needed. - outpt follow-up. PPx: Coumadin Discharge Planning echocardiogram pending When cleared by cardiology. Shadi Martinez MD Jun 04, 2017 10:01
[2017-06-04] MEDS ORDERED: CHOLECALCIFEROL (VIT D3) 5000 UNIT CAP PO ONE (10:15)
[2017-06-04] MEDS: ASPIRIN 81 MG CHEW TAB CHEW SCH (10:33)
[2017-06-04] MEDS: FUROSEMIDE 20 MG/2 ML VIAL IV PUSH SCH ×2 (10:33→17:41)
[2017-06-04] MEDS: DILTIAZEM HCL 30 MG TAB PO SCH ×4 (10:35→22:01)
[2017-06-04] MEDS: predniSONE 5 MG TAB PO SCH ×2 (10:35→22:01)
[2017-06-04] MEDS ORDERED: ABIRATERONE 250 MG PO SCH (11:00)
[2017-06-04] MEDS: DILTIAZEM INJ 125 MG in SODIUM CHLORIDE 0.9% INJ 100 ML IV PRN (11:19)
[2017-06-04 12:31] LABS: INDIRECT BILIRUBIN 0.9 MG/DL (0.0-0.8); TOTAL BILIRUBIN ADULT 1.3 MG/DL (0.2-1.0)
[2017-06-04] MEDS: WARFARIN SOD 5 MG TAB PO SCH (16:00)
--- NOTE | 2017-06-04 16:21 | PD.CARD.PN ---
Subjective Subjective Remarks No CP, SOB improving, HR controlled Objective Medications Current Medications Medications (Trade) Dose Ordered Sig/Farzana Route Start Time Stop Time Status Last Admin Diltiazem HCl 125 mg/Sodium Chloride 125 ml @ 5 mls/hr TITRATE PRN IV 06/03/17 13:15 06/04/17 11:19 (NS Flush) 2 ml UNSCH PRN IV FLUSH 06/03/17 14:30 (NS Flush) 2 ml BID IV FLUSH 06/03/17 21:00 06/03/17 22:06 (Tylenol) 650 mg Q4H PRN PO 06/03/17 14:30 (Tylenol) 650 mg Q6H PRN PO 06/03/17 14:30 (Narcan Inj) 0.4 mg UNSCH PRN IV PUSH 06/03/17 14:30 (Radha-Colace) 1 tab BID PO 06/03/17 21:00 Pharmacy Profile Note 0 ml @ 0 mls/hr UNSCH OTHER 06/03/17 14:30 (Coumadin) 5 mg DAILY@1600 PO 06/03/17 18:00 06/04/17 16:00 (Cardizem) 30 mg QID PO 06/03/17 15:00 06/04/17 12:42 (Lasix Inj) 20 mg BID@09,18 IV PUSH 06/03/17 18:00 06/04/17 10:33 (Aspirin Chew) 81 mg DAILY CHEW 06/04/17 09:00 06/04/17 10:33 (Synthroid) 100 mcg DAILY@0600 PO 06/04/17 06:00 06/04/17 06:14 (Deltasone) 5 mg BID PO 06/03/17 21:00 06/04/17 10:35 (Proscar) 5 mg EVERY OTHER DAY PO 06/05/17 09:00 (Vitamin D3) 5,000 units DAILY PO 06/05/17 09:00 Patient Own Medication PT OWN MED: Abirater... DAILY@1100 PO 06/04/17 11:00 06/04/17 11:57 Vital Signs / I&O Vital Signs Date Time Temp Pulse Resp B/P (MAP) Pulse Ox O2 Delivery O2 Flow Rate FiO2 06/04/17 15:29 06/04/17 13:49 06/04/17 12:00 97.9 85 20 119/58 (78) 96 06/04/17 11:28 98 Nasal Cannula 2.00 06/04/17 11:19 92 110/56 06/04/17 08:02 107 06/04/17 08:00 Room Air 06/04/17 08:00 97.4 92 20 110/56 (74) 96 06/04/17 04:02 97.8 91 18 133/66 (88) 96 06/04/17 04:00 92 06/04/17 00:00 102 06/03/17 23:27 97.2 93 18 122/59 (80) 98 06/03/17 21:02 95 2.00 06/03/17 20:00 Room Air 06/03/17 20:00 92 06/03/17 19:58 97.3 100 20 118/63 (81) 97 06/03/17 19:26 Nasal Cannula 1.00 06/03/17 18:35 97.3 91 18 126/66 (86) 97 06/03/17 18:33 06/03/17 18:00 100 147/73 (97) 06/03/17 17:30 96 19 117/58 (77) 97 Nasal Cannula 2.00 06/03/17 17:00 92 120/62 (81) 06/03/17 16:45 92 110/58 (75) I/O 06/03/17 06/03/17 06/03/17 06/04/17 06/04/17 06/04/17 07:00 15:00 23:00 07:00 15:00 23:00 Intake Total 325 ml 125 ml Output Total 150 ml 875 ml Balance -150 ml -550 ml 125 ml Intake Oral 240 ml IV Total 85 ml 125 ml Output Urine Total 150 ml 875 ml # Voids 1 # Bowel Movements 0 Physical Exam GENERAL: In NAD, on O2 SKIN: Warm and dry. HEAD: Normocephalic. EYES: No scleral icterus. No injection or drainage. NECK: Supple, trachea midline. No JVD or lymphadenopathy. CARDIOVASCULAR: Irregular rate and rhythm, without murmurs, gallops, or rubs. RESPIRATORY: Breath sounds equal bilaterally. No accessory muscle use. GASTROINTESTINAL: Abdomen soft, non-tender, nondistended. MUSCULOSKELETAL: No cyanosis, mild edema. Laboratory Laboratory Tests Test 06/03/17 17:05 10/12/17 20:04 06/04/17 07:00 Troponin I 0.06 NG/ML 0.06 NG/ML Phosphorus Level 2.1 MG/DL Magnesium Level 2.2 MG/DL Vitamin B12 Level 846 PG/ML White Blood Count 5.5 TH/MM3 Red Blood Count 3.67 MIL/MM3 Hemoglobin 12.3 GM/DL Hematocrit 35.9 % Mean Corpuscular Volume 97.8 FL Mean Corpuscular Hemoglobin 33.6 PG Mean Corpuscular Hemoglobin Concent 34.4 % Red Cell Distribution Width 14.3 % Platelet Count 168 TH/MM3 Mean Platelet Volume 7.8 FL Neutrophils (%) (Auto) 86.2 % Lymphocytes (%) (Auto) 5.7 % Monocytes (%) (Auto) 6.8 % Eosinophils (%) (Auto) 1.0 % Basophils (%) (Auto) 0.3 % Neutrophils # (Auto) 4.8 TH/MM3 Lymphocytes # (Auto) 0.3 TH/MM3 Monocytes # (Auto) 0.4 TH/MM3 Eosinophils # (Auto) 0.1 TH/MM3 Basophils # (Auto) 0.0 TH/MM3 CBC Comment DIFF FINAL Differential Comment Prothrombin Time 20.2 SEC Prothromb Time International Ratio 1.8 RATIO Blood Urea Nitrogen 17 MG/DL Creatinine 0.66 MG/DL Random Glucose 99 MG/DL Total Protein 5.3 GM/DL Albumin 2.3 GM/DL Calcium Level 7.5 MG/DL Alkaline Phosphatase 130 U/L Aspartate Amino Transf (AST/SGOT) 25 U/L Alanine Aminotransferase (ALT/SGPT) 20 U/L Total Bilirubin 1.3 MG/DL Sodium Level 136 MEQ/L Potassium Level 3.7 MEQ/L Chloride Level 101 MEQ/L Carbon Dioxide Level 28.5 MEQ/L Anion Gap 7 MEQ/L Estimat Glomerular Filtration Rate 115 ML/MIN Direct Bilirubin 0.4 MG/DL Indirect Bilirubin 0.9 MG/DL Assessment and Plan Problem List: (1) Atrial fibrillation ICD Codes: I48.91 - Unspecified atrial fibrillation (2) CHF (congestive heart failure) ICD Codes: I50.9 - Heart failure, unspecified (3) CAD (coronary artery disease) ICD Codes: I25.10 - Atherosclerotic heart disease of [place] coronary artery without angina pectoris (4) Cardiomyopathy ICD Codes: I42.9 - Cardiomyopathy, unspecified (5) PVD (peripheral vascular disease) ICD Codes: I73.9 - Peripheral vascular disease, unspecified (6) Hyperlipidemia ICD Codes: E78.5 - Hyperlipidemia, unspecified Status: Chronic (7) Benign hypertension ICD Codes: I10 - Essential (primary) hypertension Status: Chronic Assessment and Plan Continue rate control of a fib, switch IV diltiazem to beta madyson. Continue anticoagulation with warfarin. Continue monitoring. Wean off O2. Increase activity. F/u w Dr. Watts. D/w pt and son. Lacey Munroe MD Jun 04, 2017 16:21
[2017-06-04] MEDS: METOPROLOL TARTRATE 25 MG TAB PO SCH (22:01)
[2017-06-05] VITALS: BP 118/61; PULSE 71; RESP 16; TEMP 97.5; O2SAT 98
[2017-06-05 04:00] VITALS: BP 112/56; PULSE 58; RESP 20; TEMP 97.6; O2SAT 97
[2017-06-05 05:42] LABS: INTERNATIONAL NORMALIZED RATIO 2.3 RATIO; PROTHROMBIN TIME - PATIENT 26.6 SEC (9.8-11.6)
[2017-06-05] MEDS: LEVOTHYROXINE SODIUM 100 MCG TAB PO SCH (06:04)
[2017-06-05 08:00] VITALS: PULSE 61
[2017-06-05 08:04] VITALS: BP 116/67; PULSE 77; RESP 19; TEMP 97.3; O2SAT 98
[2017-06-05] MEDS ORDERED: FINASTERIDE 5 MG TAB PO SCH (09:00)
[2017-06-05] MEDS ORDERED: CHOLECALCIFEROL (VIT D3) 5000 UNIT CAP PO SCH (09:00)
[2017-06-05] MEDS: METOPROLOL TARTRATE 25 MG TAB PO SCH (09:34)
[2017-06-05] MEDS: predniSONE 5 MG TAB PO SCH (09:34)
[2017-06-05] MEDS: SODIUM CHLORIDE 0.9% FLUSH 10 ML FLUSH IV FLUSH SCH (09:34)
[2017-06-05] MEDS: DOCUSATE SODIUM 50 MG/SENNA 8.6 MG TAB PO SCH (09:34)
[2017-06-05] MEDS: FUROSEMIDE 20 MG/2 ML VIAL IV PUSH SCH (09:34)
[2017-06-05] MEDS: DILTIAZEM HCL 30 MG TAB PO SCH ×2 (09:34→13:37)
[2017-06-05] MEDS: ASPIRIN 81 MG CHEW TAB CHEW SCH (09:34)
--- NOTE | 2017-06-05 11:43 | ECHRPT ---
Indication: A fib/flutter CONCLUSIONS The left ventricular systolic function is moderately reduced with an estimated ejection fraction in the range of 40-45%. Normal left ventricular size. Mild concentric left ventricular hypertrophy. Akinetic apical cap wall motion. Akinetic apical anterior wall. The left atrial size is mildly dilated. Mildly dilated proximal ascending aorta. Mild thickening of the mitral valve leaflets. Mild mitral valve regurgitation. Aortic valve sclerosis is present. Mild aortic valve regurgitation. No aortic valve stenosis. There is mild tricuspid valve regurgitation. The estimated pulmonary arterial pressure is 37__ mmHg. The pulmonary valve is not well visualized. Trivial pulmonary valve regurgitation. BP: / HR: Rhythm: MEASUREMENTS (Male / Female) Normal Values Technical Quality:Fair., Technically difficult demarco dy 2D ECHO LV Diastolic Diameter PLAX 3.4 cm 4.2 - 5.9 / 3.9 - 5.3 cm LV Systolic Diameter PLAX 2.8 cm IVS Diastolic Thickness 1.7 cm 0.6 - 1.0 / 0.6 - 0.9 cm LVPW Diastolic Thickness 1.2 cm 0.6 - 1.0 / 0.6 - 0.9 cm LV Relative Wall Thickness 0.8 RV Internal Dim ED PLAX 3.0 cm M-MODE Aortic Root Diameter MM 4.0 cm LA Systolic Diameter MM 4.5 cm LA Ao Ratio MM 1.1 AV Cusp Separation MM 2.1 cm DOPPLER LV E' Lateral Velocity 10.4 cm/s LV E' Septal Velocity 6.9 cm/s TR Peak Velocity 258.0 cm/s TR Peak Gradient 26.6 mmHg Right Atrial Pressure 10.0 mmHg Pulmonary Artery Systolic Pressu 36.6 mmHg Right Ventricular Systolic Press 36.6 mmHg FINDINGS LEFT VENTRICLE The left ventricular systolic function is moderately reduced with an estimated ejection fraction in the range of 40-45%. Normal left ventricular size. Mild concentric left ventricular hypertrophy. Akinetic apical cap wall motion. Akinetic apical anterior wall. RIGHT VENTRICLE Normal right ventricular size and systolic function. LEFT ATRIUM The left atrial size is mildly dilated. RIGHT ATRIUM The right atrial size is normal. ATRIAL SEPTUM Normal atrial septal thickness without atrial level shunting by limited color doppler interrogation. AORTA Mildly dilated proximal ascending aorta. MITRAL VALVE Mild thickening of the mitral valve leaflets. Mild mitral valve regurgitation. AORTIC VALVE Trileaflet aortic valve. Aortic valve sclerosis is present. Mild aortic valve regurgitation. No aortic valve stenosis. TRICUSPID VALVE Structurally normal tricuspid valve. There is mild tricuspid valve regurgitation. The estimated pulmonary arterial pressure is 37__ mmHg. PULMONARY VALVE The pulmonary valve is not well visualized. Trivial pulmonary valve regurgitation. VESSELS The inferior vena cava is normal in size. PERICARDIUM No pericardial effusion. Janes Chris MD (Electronically Signed) Final Date:05 June 2017 11:42
[2017-06-05 12:04] VITALS: BP 114/66; PULSE 76; RESP 19; TEMP 97.5; O2SAT 98
[2017-06-05] MEDS ORDERED: METO25TA3 PO (12:08)
[2017-06-05] MEDS ORDERED: FURO20TA PO (12:08)
--- NOTE | 2017-06-05 12:13 | HHI.FF ---
Face to Face Verification Diagnosis: (1) Cardiomyopathy (2) CHF (congestive heart failure) (3) Atrial fibrillation Physical Therapy Order: Evaluate and Treat Home Health Nursing Order: Nursing assessment with vital signs Instructions: home health nursing for medication management. Computer Systems Analyst Order: To Provide: Long range planning I have seen patient Dario Giron on 06/05/17. My clinical findings support the need for the requested home health care services because: Deconditioned w/ increased weakness I certify that my clinical findings support that this patient is homebound because: Unsafe to leave home unassisted Shadi Martinez MD Jun 05, 2017 12:13
[2017-06-05] MEDS ORDERED: CHOL5000 PO (22:05)
--- NOTE | 2017-06-05 22:13 | HHI.DS ---
Discharge Summary Admission Date Jun 03, 2017 at 13:25 Discharge Date: Jun 05, 2017 Admitting Diagnosis atrial fibrillation with rvr, congestive heart failure, prostate can (1) Cardiomyopathy ICD Code: I42.9 - Cardiomyopathy, unspecified (2) Atrial fibrillation ICD Code: I48.91 - Unspecified atrial fibrillation Procedures no invasive procedures. Brief History - From Admission The patient is an 82-year-old male with a past medical history of prostate cancer, atrial fibrillation and CAD who is presenting to the hospital with weakness. This past the patient started to notice that his legs were getting weak. He was in [place] and ended up going to the emergency department there. He was hydrated and discharged home. He drove back to [facility] with his family on Wednesday. He said that his weakness got even worse. He also describes dizziness when standing up from a seated position. He says he sometimes feels like falling to the floor but has not passed out. He went to his oncologist yesterday (Dr. Ferrell) where he received IV hydration and was sent home. This morning the patient was unable to ambulate, so he was brought to the hospital. The patient says he has been eating and drinking well. He does endorse a dry cough. His family states that his breathing seems to have gotten worse. The patient denies any chest pain, diarrhea, fever or urinary difficulties. CBC/BMP: 06/04/17 0700 06/04/17 0700 Significant Findings Laboratory Tests Test 06/03/17 10:10 06/03/17 14:44 06/03/17 17:05 06/03/17 20:04 Red Blood Count 3.99 MIL/MM3 (4.50-5.90) Neutrophils (%) (Auto) 88.9 % (16.0-70.0) Lymphocytes (%) (Auto) 4.8 % (9.0-44.0) Neutrophils # (Auto) 7.9 TH/MM3 (1.8-7.7) Lymphocytes # (Auto) 0.4 TH/MM3 (1.0-4.8) Prothrombin Time 19.6 SEC (9.8-11.6) Activated Partial Thromboplast Time 36.4 SEC (24.3-30.1) Random Glucose 151 MG/DL (74-106) Total Protein 5.7 GM/DL (6.4-8.2) Albumin 2.6 GM/DL (3.4-5.0) Calcium Level 7.8 MG/DL (8.5-10.1) Alkaline Phosphatase 150 U/L (45-117) Total Bilirubin 1.5 MG/DL (0.2-1.0) Sodium Level 134 MEQ/L (136-145) Estimat Glomerular Filtration Rate 76 ML/MIN (>89) B-Type Natriuretic Peptide 496 PG/ML (0-100) 25-Hydroxy Vitamin D Total 10.5 ng/ML (30-100) Urine Mucus FEW /lpf (OCC) Troponin I 0.06 NG/ML (0.02-0.05) 0.06 NG/ML (0.02-0.05) Phosphorus Level 2.1 MG/DL (2.5-4.9) Test 06/04/17 07:00 06/05/17 04:58 Red Blood Count 3.67 MIL/MM3 (4.50-5.90) Hemoglobin 12.3 GM/DL (13.0-17.0) Hematocrit 35.9 % (39.0-51.0) Neutrophils (%) (Auto) 86.2 % (16.0-70.0) Lymphocytes (%) (Auto) 5.7 % (9.0-44.0) Lymphocytes # (Auto) 0.3 TH/MM3 (1.0-4.8) Prothrombin Time 20.2 SEC (9.8-11.6) 26.6 SEC (9.8-11.6) Total Protein 5.3 GM/DL (6.4-8.2) Albumin 2.3 GM/DL (3.4-5.0) Calcium Level 7.5 MG/DL (8.5-10.1) Alkaline Phosphatase 130 U/L (45-117) Total Bilirubin 1.3 MG/DL (0.2-1.0) Direct Bilirubin 0.4 MG/DL (0.0-0.2) Indirect Bilirubin 0.9 MG/DL (0.0-0.8) Imaging Last Impressions Chest X-Ray 06/03/17 1011 Signed Impressions: Service Date/Time: May 10:37 - CONCLUSION: Interstitial prominence and small bilateral effusions characteristic of pulmonary congestion. Pranay Deng MD PE at Discharge GENERAL: patient lying in bed. Appears comfortable. SKIN: Warm and dry. HEAD: Normocephalic. EYES: No scleral icterus. No injection or drainage. NECK: Supple, trachea midline. No JVD. CARDIOVASCULAR: Regular rate and rhythm without murmurs, gallops, or rubs. RESPIRATORY: Breath sounds equal bilaterally. No accessory muscle use. GASTROINTESTINAL: Abdomen soft, non-tender, nondistended. MUSCULOSKELETAL: No cyanosis, or edema. BACK: Nontender without obvious deformity. No CVA tenderness. Pt update on day of discharge Patient says he feels well. Denies any chest pain or shortness breath. Feels like going home. Hospital Course Patient presented with heart rate in the 120s, managed on Cardizem drip. Cardiology was consult to. Heart rate improved on metoprolol in addition to his Cardizem. Patient was also found about hypovitaminosis D, and received replacement while inpatient. Patient was also found to have indication of pulmonary edema on chest x-ray, was started on Lasix. Ejection fraction 40-45% a repeat echocardiogram. Patient will benefit from home health nursing for medication management. For problem-Based summary from most recent progress note, please see below. ========06/04/17===== //Hypovitaminosis D. Vitamin D level low. Replace vitamin D. Atrial fibrillation. Await echocardiogram. Reordered. Appreciate cardiology assistance. Medications have been adjusted by cardiology. Discussed with nursing today. //Bilirubin elevation. We'll check bilirubin components.Mostly indirect. 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 //Atrial fibrillation with RVR The patient is on 120 mg of diltiazem by mouth daily at home. He is also on Coumadin. He presents with a heart rate in the 120s. He was started on a Cardizem drip in the emergency department. TSH within normal limits. - Continue Cardizem drip for now. - Start diltiazem 30 mg by mouth every 6 hours. - Cardiology consultation requested. - Echocardiogram ordered. - Monitor on telemetry. - continue Coumadin and ASA. //Acute systolic heart failure The patient last had an echocardiogram in July 2016 which revealed an ejection fraction of 45-50%. Likely exacerbated by A fib. - rate control as above. - continue Lasix 20 mg IV BID. Follow Is and Os. - repeat echo. - check lipid profile, HgbA1c. - follow up with cardiology. //extremity weakness Multifactorial, s/t A fib, CHF and metastatic prostate cancer. 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 TSH WNL. - check vit b12 level, vitamin D level. - PT/ OT. - continue antineoplastic agent. //Prostate cancer With mets to his bones. Follows with Dr. Ferrell. - continue Zytiga and prednisone. - pain control as needed. - outpt follow-up. PPx: Coumadin Pt Condition on Discharge: Good Discharge Disposition: Disch w/ Home Health Serv Discharge Time: > 30 minutes Discharge Instructions DIET: Follow Instructions for: Heart Healthy Diet Activities you can perform: Regular-No Restrictions Follow up Referrals: Cardiology - 1 Week with Oriana Watts MD PCP Follow-up - 1 Week New Medications: Cholecalciferol (Vitamin D3) 5,000 Unit Cap 5000 UNITS PO DAILY for Nutritional Supplement, #30 CAP 0 Refills Furosemide (Furosemide) 20 Mg Tab 20 MG PO BID for heart, #60 TAB 0 Refills Metoprolol Tartrate (Metoprolol Tartrate) 25 Mg Tab 25 MG PO Q12HR for heart, #60 TAB Continued Medications: Abiraterone (Zytiga) 250 Mg Tab 1000 MG PO DAILY for Chemotherapy Management, #120 TAB 0 Refills Hazardous agent; use appropriate precautions for handling & disposal. Take on an empty stomach, 1 hr before or 2 hrs after food. Swallow whole, do not crush or chew. Aspirin (Aspirin) 81 Mg Chew 81 MG CHEW DAILY, TAB 0 Refills Diltiazem CD 24 HR (Diltiazem CD 24 HR) 120 Mg Caper 120 MG PO DAILY, #30 CAP 0 Refills Dutasteride (Avodart) 0.5 Mg Cap 0.5 MG PO EVERY OTHER DAY for Manage Prostate Problems, #30 CAP 0 Refills Levothyroxine (Levothyroxine) 100 Mcg Tab 100 MCG PO DAILY for Thyroid, #30 TAB 0 Refills Prednisone (Prednisone) 5 Mg Tab 5 MG PO BID, TAB 0 Refills Warfarin (Warfarin) 6 Mg Tab 6 MG PO 3xweek for Blood Clot Prevention, #30 TAB 0 Refills Warfarin (Warfarin) 6 Mg Tab 8 MG PO 4xweek for Blood Clot Prevention, #30 TAB 0 Refills Shadi Martinez MD Jun 05, 2017 22:13
== END 2017-06-05 15:20 | disposition home health service (06) | DRG 308 ==
LOC: NEPE 09:48 → NEDA 13:25 → N04B 18:28
PROVIDERS: ADMIT Internal Medicine; ATTEND Internal Medicine
DX: I48.2 Chronic atrial fibrillation (principal); I50.23 Acute on chronic systolic (congestive) heart failure; C79.51 Secondary malignant neoplasm of bone; I69.354 Hemiplegia and hemiparesis following cerebral infarction affecting left non-dominant side; I11.0 Hypertensive heart disease with heart failure; C61 Malignant neoplasm of prostate; I73.9 Peripheral vascular disease, unspecified; I25.10 Atherosclerotic heart disease of native coronary artery without angina pectoris; E03.9 Hypothyroidism, unspecified; R26.2 Difficulty in walking, not elsewhere classified; E78.5 Hyperlipidemia, unspecified; I65.23 Occlusion and stenosis of bilateral carotid arteries; I25.5 Ischemic cardiomyopathy; E55.9 Vitamin D deficiency, unspecified; Z79.01 Long term (current) use of anticoagulants; Z79.82 Long term (current) use of aspirin; I25.2 Old myocardial infarction; Z95.5 Presence of coronary angioplasty implant and graft; Z92.3 Personal history of irradiation
CPT/HCPCS: 71020; 80053; 81001; 82247; 82248; 82306; 82550; 82607; 83735; 83880; 84100; 84443; 84484; 85025; 85610; 85730; 93005; 93306; 96374; 96375; J1940; J7512

== ENCOUNTER 2017-12-11 11:07 | Inpatient (IN) | payer MEDICARE, OTHER ==
[~2017-12-11] VITALS: Ht 185.4 cm; Wt 75.0 kg
[~2017-12-11 11:07] MED LIST changes: +ASPI-516 CHEW; -ASPI81CH CHEW; +AVOD0.5C PO; +CHOL5000 PO; +DILT120C50 PO; -DILT120T PO; +FURO20TA PO; +METO25TA3 PO; +PRED5TAB PO; +ZYTI250T PO
[2017-12-11 11:09] VITALS: BP 127/64; PULSE 79; RESP 18; TEMP 97.4; O2SAT 96
[2017-12-11] MEDS ORDERED: FURO1TAB62 PO (11:19)
[2017-12-11] MEDS ORDERED: WARF-58 PO (11:19)
[2017-12-11] MEDS ORDERED: OYSCTAB PO (11:19)
[2017-12-11] MEDS ORDERED: WARF-60 PO (11:19)
--- NOTE | 2017-12-11 12:34 | RADRPT ---
EXAM DATE/TIME: 12/11/2017 12:08 [facility] COMPARISON: No previous studies available for comparison. INDICATIONS : Fell today, has left hip pain MEDICAL HISTORY : Diabetes mellitus type I. Cardiovascular disease. Hypertension. Prostate cancer. SURGICAL HISTORY : Right hip ENCOUNTER: Initial ACUITY: 1 day PAIN SCORE: 4/10 LOCATION: Left Left hip area FINDINGS: There is a questionable subtle nondisplaced subcapital hip fracture with subtle area of apparent luce ncy and apparent lateral cortical break. There is no abnormal angulation or distraction. There is mil d osteopenia. CONCLUSION: Apparent nondisplaced subtle left hip fracture. This could be further evaluated with CT. Delvin Andrade MD on December 11, 2017 at 12:29 Board Certified Radiologist. This report was verified electronically.
--- NOTE | 2017-12-11 13:08 | RADRPT ---
EXAM DATE/TIME: 12/11/2017 12:34 [facility] COMPARISON: CT BRAIN W/O CONTRAST, August 19, 2016, 19:31. CT BRAIN W/O CONTRAST, August 20, 2016, 20:04. INDICATIONS : Fell. No lacarations RADIATION DOSE: 59.70 CTDIvol (mGy) MEDICAL HISTORY : Cardiovascular disease. Hypothyroidism. Hypertension.Afib, Prostate ca, bone mets SURGICAL HISTORY : Cholecystectomy. ENCOUNTER: Initial ACUITY: 1 day PAIN SCALE: 0/10 LOCATION: cranial TECHNIQUE: Multiple contiguous axial images were obtained of the head. Using automated exposure control and adj ustment of the mA and/or kV according to patient size, radiation dose was kept as low as reasonably a chievable to obtain optimal diagnostic quality images. DICOM format image data is available electro nically for review and comparison. FINDINGS: CEREBRUM: Diffuse moderate atrophic changes are again noted with interval area of encephalomalacia now noted in volving the right parietal lobe. Mild patchy periventricular lucencies are present. No evidence of mi dline shift, mass lesion, hemorrhage or acute infarction. No extra-axial fluid collections are seen. POSTERIOR FOSSA: The cerebellum and brainstem are intact. The 4th ventricle is midline. The cerebellopontine angle i s unremarkable. EXTRACRANIAL: The visualized portion of the orbits is intact. The right mandible remains abnormal in appearance wit h proliferative prominent callus type productive bone formation extending along the mandible. This is slightly increased in size and more irregular. There is apparent cortical bone centrally which is ir regular and the ossified. SKULL: The calvaria is intact. No evidence of skull fracture. CONCLUSION: 1. No acute hemorrhage or mass effect. 2. There are interval encephalomalacia in the right parietal lobe likely representing interval infarc tion. 3. The right mandible remains abnormal in appearance with fluffy proliferative bone changes which hav e progressed mildly and remain nonspecific. This could represent a bone lesion such as a osteosarcoma or chondrosarcoma however these are usually more aggressive. Infection could potentially have this a ppearance. This would be unusual for Paget's disease. Delvin Andrade MD on December 11, 2017 at 12:56 Board Certified Radiologist. This report was verified electronically.
--- NOTE | 2017-12-11 13:13 | RADRPT ---
EXAM DATE/TIME: 12/11/2017 12:37 [facility] COMPARISON: HIP LEFT (AP&LAT 2/3VWS) W AP PELVIS, December 11, 2017, 12:08. INDICATIONS : Fell, hip pain left side. RADIATION DOSE: 9.76 CTDIvol (mGy) MEDICAL HISTORY : Cardiovascular disease. Hypothyroidism. Hypertension.Ca prostate, bone mets.Afib SURGICAL HISTORY : Cholecystectomy. Rt hip ENCOUNTER: Initial ACUITY: 1 day PAIN SCALE: 4/10 LOCATION: Left hip TECHNIQUE: Volumetric scanning of the hip was performed. Using automated exposure control and adjustment of the mA and/or kV according to patient size, radiation dose was kept as low as reasonably achievable to o btain optimal diagnostic quality images. DICOM format image data is available electronically for rev iew and comparison. FINDINGS: BONES: Focal area sclerosis in the left ilium just above the acetabular roof. CT confirms the presence of a minimally displaced subcapital fracture of the left femur. JOINTS: No evidence of joint narrowing or effusion. SOFT TISSUES: Muscles, tendons and neurovascular structures are grossly unremarkable. No evidence of mass, organize d fluid collection, or foreign body. CONCLUSION: 1. Minimally displaced subcapital fracture of the left femur. 2. Focal area of sclerosis in the left ilium just above the acetabular roof. Both benign and malignan t etiologies should be considered with this appearance. Patient appears to have prostatic seeds in pl leah and prostate metastases can be sclerotic. Bone scan could be performed for further evaluation of this region if clinically warranted. João Cullen MD on December 11, 2017 at 13:07 Board Certified Radiologist. This report was verified electronically.
--- NOTE | 2017-12-11 13:21 | PD ---
HPI Chief Complaint: Fall Time Seen by Provider: 11:14 Travel History International Travel<30 days: No Contact w/Intl Traveler<30days: No Traveled to known affect area: No History of Present Illness HPI 82-year-old male here with left hip pain. He reports his left knee gave out causing him to fall onto the left side from a standing position onto a carpeted floor. No head injury or loss of consciousness. He was unable to stand due to pain in the left hip after the fall. He was brought in by EMS for evaluation. He denies headache, visual changes, neck pain, chest pain, paresthesia or weakness of the extremity. He reports mild aching pain localized to the left hip which is nonradiating. Patient is anticoagulated on Coumadin. PFSH Past Medical History Hx Anticoagulant Therapy: Yes Arthritis: No Asthma: No Atrial Fibrillation: Yes Autoimmune Disease: No Blood Disorders: No Anxiety: No Depression: No Heart Rhythm Problems: Yes (A-Fib) Cancer: Yes (PROSTATE METS TO BONE) Cardiac Catheterization: Yes (JANUARY 1997) Cardiovascular Problems: Yes (htn on meds) High Cholesterol: Yes Chemotherapy: No Chest Pain: No Congestive Heart Failure: Yes COPD: No Cerebrovascular Accident: Yes (cva 2015) Diabetes: No Diminished Hearing: No Endocrine: Yes Gastrointestinal Disorders: No GERD: No Glaucoma: No Genitourinary: No Headaches: No Hepatitis: No Hiatal Hernia: No Heparin Induced Thrombocytopen: No Hypertension: Yes Immune Disorder: No Implanted Vascular Access Dvce: No Kidney Stones: No Musculoskeletal: No Neurologic: No Psychiatric: No Reproductive: No Respiratory: No Immunizations Current: No Migraines: No Myocardial Infarction: Yes (X 2) Radiation Therapy: Yes (PREVIOUS) Renal Failure: No Seizures: No Sickle Cell Disease: No Sleep Apnea: No Thyroid Disease: Yes (hypothyroidism) Ulcer: No Tetanus Vaccination: < 5 Years Influenza Vaccination: No Past Surgical History Narrative Surgical A. fib-on Coumadin, hypertension, dyslipidemia, prostate CA Abdominal Surgery: Yes (Gallbladder 2009) AICD: No Appendectomy: No Arteriovenous Shunt: No Body Medical Devices: fours stents placed Cardiac Surgery: Yes (four stents placed 1996) Cholecystectomy: Yes Coronary Stent: Yes (X 24 JANUARY 1997) Ear Surgery: No Endocrine Surgery: No Eye Surgery: No Genitourinary Surgery: No Insulin Pump: No Joint Replacement: No Neurologic Surgery: No Oral Surgery: No Pacemaker: No Thoracic Surgery: No Other Surgery: Yes Social History Alcohol Use: No Tobacco Use: No Substance Use: No Allergies-Medications (Allergen,Severity, Reaction): Coded Allergies: No Known Allergies (Verified Adverse Reaction, Unknown, 12/11/17) Reported Meds & Prescriptions Reported Meds & Active Scripts Active Vitamin D3 (Cholecalciferol) 5,000 Unit Cap 5,000 Units PO DAILY Metoprolol Tartrate 25 Mg Tab 25 Mg PO Q12HR Reported Warfarin 3 Mg Tab 3 Mg PO WEDNESDAY,,WED,WED Warfarin 6 Mg Tab 6 Mg PO MON-WED-WED Oysco 500 (Oyster Shell) 500 Mg Calcium (1250 Mg) Tab 2 Tab PO DAILY Lasix (Furosemide) 20 Mg Tab 20 Mg PO EVERY OTHER DAY Diltiazem CD 24 HR 120 Mg Caper 120 Mg PO DAILY Zytiga (Abiraterone) 250 Mg Tab 1,000 Mg PO DAILY Hazardous agent; use appropriate precautions for handling & disposal. Take on an empty stomach, 1 hr before or 2 hrs after food. Swallow whole, do not crush or chew. Avodart (Dutasteride) 0.5 Mg Cap 0.5 Mg PO EVERY OTHER DAY Prednisone 5 Mg Tab 5 Mg PO BID Warfarin 6 Mg Tab 8 Mg PO 4XWEEK Warfarin 6 Mg Tab 6 Mg PO 3XWEEK Aspirin 81 Mg Chew 81 Mg CHEW DAILY Levothyroxine (Levothyroxine Sodium) 100 Mcg Tab 100 Mcg PO DAILY Review of Systems Except as stated in HPI: all other systems reviewed are Neg General / Constitutional: No: Fever Eyes: No: Visual changes HENT: No: Headaches Cardiovascular: No: Chest Pain or Discomfort Respiratory: No: Shortness of Breath Gastrointestinal: No: Abdominal Pain Genitourinary: No: Dysuria Musculoskeletal: Positive: Pain (Left hip pain) Skin: No Rash Physical Exam Narrative GENERAL: Alert and well-appearing 82-year-old male. Resting comfortably on the stretcher. No distress. SKIN: Warm and dry. HEAD: Atraumatic. Normocephalic. No facial trauma EYES: Pupils equal and round. EOMs intact. No scleral icterus. ENT: No nasal bleeding or discharge. Mucous membranes pink and moist. NECK: Trachea midline. No cervical midline tenderness CARDIOVASCULAR: Regular rate and rhythm. No chest wall tenderness RESPIRATORY: No accessory muscle use. Clear to auscultation. Breath sounds equal bilaterally. Even and equal chest rise GASTROINTESTINAL: Abdomen soft, non-tender, nondistended. No rebound or guarding. MUSCULOSKELETAL: Extremities without clubbing, cyanosis, or edema. No obvious deformities. Pelvis stable. LLE: Patient points to the lateral hip as source of pain. The area is nontender to palpation. No rotation or shortening of the leg. The femur, knee, tib-fib, and foot are nontender. Normal sensation with sharp dull discrimination. Palpable DP pulse. Can freely wiggle the toes. Brisk cap refill. NEUROLOGICAL: Awake and alert. No obvious cranial nerve deficits. Motor grossly within normal limits. Normal strength and sensation in extremities. Normal speech. PSYCHIATRIC: Appropriate mood and affect; insight and judgment normal. Data Data Last Documented VS Vital Signs Date Time Temp Pulse Resp B/P (MAP) Pulse Ox O2 Delivery O2 Flow Rate FiO2 12/11/17 11:12 96 Room Air 12/11/17 11:09 97.4 79 18 127/64 (85) Orders Orders Hip, Uni(Ap&Lat) W Ap Pelvis (12/11/17 ) Ct Brain W/O Iv Contrast(Rout) (12/11/17 ) Ct Hip W/O Contrast (12/11/17 ) Basic Metabolic Panel (Bmp) (12/11/17 13:28) Complete Blood Count With Diff (12/11/17 13:28) Prothrombin Time / Inr (Pt) (12/11/17 13:28) Act Partial Throm Time (Ptt) (12/11/17 13:28) Iv Access Insert/Monitor (12/11/17 13:28) Sodium Chloride 0.9% Flush (Ns Flush) (12/11/17 13:30) Electrocardiogram (12/11/17 13:28) Chest, Single Ap (12/11/17 13:28) Morphine Inj (Morphine Inj) (12/11/17 14:00) Ondansetron Inj (Zofran Inj) (12/11/17 14:00) Admit Order (Ed Use Only) (12/11/17 13:54) Labs Laboratory Tests Test 12/11/17 13:30 Sodium Level 139 MEQ/L Potassium Level 3.7 MEQ/L Chloride Level 101 MEQ/L MDM Medical Decision Making Medical Screen Exam Complete: Yes Emergency Medical Condition: Yes Interpretation(s) CT the brain: No intracranial hemorrhage. Hip/pelvis x-ray: Questionable subtle nondisplaced subcapital hip fracture. CT hip: Minimally displaced subcapital fracture of the left femur Differential Diagnosis Hip fracture, pelvis fracture, ICH, contusion Narrative Course 82-year-old male here with left hip pain after fall from standing position. X- ray/CT of the hip revealed displaced subcapital fracture of the left femur. CT of the brain is negative for hemorrhage. His pain is currently minimal and he has declined pain medication. 1326: Spoke with on-call orthopedist Dr. Tian. This will need surgical repair. Patient to be kept NPO, hold Coumadin, send patient to [facility] for surgical repair. 1354: Spoke with Dr. Guzman who agrees to admit patient to their service Diagnosis Primary Impression: Hip fracture Qualified Codes: S72.002A - Fracture of unspecified part of neck of left femur , initial encounter for closed fracture Jeannine Rapp Dec 11, 2017 13:20
[2017-12-11] MEDS ORDERED: SODIUM CHLORIDE 0.9% FLUSH 10 ML FLUSH IV FLUSH PRN ×2 (13:30→14:15)
[2017-12-11 13:49] LABS: BASOPHIL % 0.9 % (0.0-2.0); EOSINOPHIL % 0.7 % (0.0-4.0); HEMATOCRIT 36.1 % (39.0-51.0); HEMOGLOBIN 12.4 GM/DL (13.0-17.0); LYMPH % 5.8 % (9.0-44.0); MEAN CELL VOLUME 96.8 FL (80.0-100.0); MEAN CORPUSCULAR HEMOGLOBIN 33.3 PG (27.0-34.0); MEAN CORPUSCULAR HGB CONC 34.4 % (32.0-36.0); MEAN PLATELET VOLUME 7.1 FL (7.0-11.0); MONO % 6.4 % (0.0-8.0); NEUT % 86.2 % (16.0-70.0); PLATELET COUNT 193 TH/MM3 (150-450); RED BLOOD COUNT 3.73 MIL/MM3 (4.50-5.90); WHITE BLOOD COUNT 6.9 TH/MM3 (4.0-11.0)
[2017-12-11 13:50] LABS: BASOPHIL # 0.1 TH/MM3 (0-0.2); LYMPHOCYTE # 0.4 TH/MM3 (1.0-4.8); MONOCYTE # 0.4 TH/MM3 (0-0.9)
[2017-12-11 13:57] LABS: CALCIUM 8.5 MG/DL (8.5-10.1)
[2017-12-11 13:58] LABS: BICARBONATE 29.8 MEQ/L (21.0-32.0)
[2017-12-11 13:59] LABS: INTERNATIONAL NORMALIZED RATIO 2.4 RATIO; PROTHROMBIN TIME - PATIENT 24.1 SEC (9.8-11.6)
[2017-12-11] MEDS ORDERED: ONDANSETRON HCL 4 MG/2 ML VIAL IV PUSH ONE (14:00)
[2017-12-11] MEDS ORDERED: MORPHINE SULFATE 2 MG/ML SYRINGE IV PUSH ONE (14:00)
[2017-12-11] MEDS ORDERED: MAGNESIUM HYDROXIDE SUSP 30 ML CUP PO PRN (14:15)
[2017-12-11] MEDS ORDERED: ACETAMINOPHEN 325 MG TAB PO PRN (14:15)
[2017-12-11] MEDS ORDERED: ONDANSETRON HCL 4 MG/2 ML VIAL IVP PRN (14:15)
[2017-12-11] MEDS ORDERED: NALOXONE HCL 0.4 MG/ML AMP IV PUSH PRN (14:15)
[2017-12-11] MEDS ORDERED: MORPHINE SULFATE 2 MG/ML SYRINGE IV PUSH PRN (14:15)
[2017-12-11 14:18] VITALS: BP 100/57; PULSE 88; RESP 18; O2SAT 91
--- NOTE | 2017-12-11 14:19 | RADRPT ---
EXAM DATE/TIME: 12/11/2017 13:41 [facility] COMPARISON: CHEST SINGLE AP, August 19, 2016, 19:56. INDICATIONS : Free air, fell today, Left hip fracture MEDICAL HISTORY : Cardiovascular disease. Hyperparathyroidism. Hypertension. Ca prostate, bone mets.Afib SURGICAL HISTORY : Cholecystectomy. Rt hip ENCOUNTER: Initial ACUITY: 1 day PAIN SCORE: 0/10 LOCATION: Bilateral chest FINDINGS: A single view of the chest demonstrates hypoinflation with partial obscuration of the right hemidiaph ragm possibly representing some right basilar atelectasis and possible small effusion. Left lung is g rossly clear. Heart size is prominent with mild interstitial prominence suggesting some degree of vas cular congestion or volume overload. No [place]lin failure. A probable coronary stent projects over the le ft heart. Osseous structures are intact t. CONCLUSION: 1. Cardiomegaly with mild interstitial prominence but no overt failure. 2. Partial obscuration of the right hemidiaphragm probably representing some degree of atelectasis. C annot exclude a small associated right-sided effusion. João Cullen MD on December 11, 2017 at 14:15 Board Certified Radiologist. This report was verified electronically.
[2017-12-11] MEDS: LACTATED RINGER'S 1000 ML INJ 1,000 ML IV SCH (14:30)
--- NOTE | 2017-12-11 17:03 | HHI.HP ---
[facility] Phys[facility] Non-Staff Admission Diagnosis L HIP FX Diagnoses: Chief Complaint: Fall at home Left hip pain Travel History International Travel<30 Days: No Contact w/Intl Traveler <30 Da: No Traveled to Known Affected Are: No History of Present Illness This is an 82-year-old male patient with a known medical history of prostate cancer with metastases to the bone, atrial fibrillation, hypertension and CAD with history of ID and stent placement who presented to the ED with left hip pain status post fall at home. [facility] and [facility] at home after feeling like his "left knee gave out" and he collapsed to the floor. Patient denies hitting his head or losing consciousness. Patient denies any dizziness, lightheadedness, diplopia or blurry vision. At the time of fall patient was unable to stand up. Patient was brought in via [facility]. Patient denies any recent illness including fever, chills, headache, shortness of breath, abdominal pain, nausea, vomiting, diarrhea dysuria. He does admit to a nonproductive cough times a few weeks. Did see his primary care on Wednesday, as well as his behavioral intervention specialist, Dr. Watts. Patient denies any new changes to his medicines. Does state that his left hip pain is 3 out of 10. Is worse with movement. Denies any incontinence, paresthesia, numbness or tingling. Pain is nonradiating. Patient does have atrial fibrillation on Coumadin, INR 2.4. Denies any history of alcohol, tobacco or illicit drug use. It should be noted that patient fell a couple weeks ago as well. Lives in assisted living, able to perform all activities of daily living independently. Review of Systems Constitutional: DENIES: Fatigue, Fever, Chills Eyes: DENIES: Blurred vision, Diplopia Respiratory: COMPLAINS OF: Cough, DENIES: Sputum production, Shortness of breath Cardiovascular: DENIES: Chest pain, Palpitations Gastrointestinal: DENIES: Abdominal pain, Black stools, Bloody stools, Constipation, Diarrhea, Nausea, Vomiting Integumentary: COMPLAINS OF: Rash (Neck rash ) Psychiatric: DENIES: Anxiety Except as stated in HPI: all other systems reviewed are Neg Past Family Social History Past Medical History CVA with residual left-sided weakness Atrial fibrillation CVA D with history of ID and cardiac stent placement 4 Prostate cancer with metastasis to the bone Hypertension Hypothyroidism Past Surgical History Cholecystectomy CVA status post thrombectomy Prostatectomy Right hip replacement Reported Medications Active Vitamin D3 (Cholecalciferol) 5,000 Unit Cap 5,000 Units PO DAILY Metoprolol Tartrate 25 Mg Tab 25 Mg PO Q12HR Reported Warfarin 3 Mg Tab 3 Mg PO WEDNESDAY,,WED,WED Warfarin 6 Mg Tab 6 Mg PO WED-WED-FRI Oysco 500 (Oyster Shell) 500 Mg Calcium (1250 Mg) Tab 2 Tab PO DAILY Lasix (Furosemide) 20 Mg Tab 20 Mg PO EVERY OTHER DAY Diltiazem CD 24 HR 120 Mg Caper 120 Mg PO DAILY Zytiga (Abiraterone) 250 Mg Tab 1,000 Mg PO DAILY Hazardous agent; use appropriate precautions for handling & disposal. Take on an empty stomach, 1 hr before or 2 hrs after food. Swallow whole, do not crush or chew. Avodart (Dutasteride) 0.5 Mg Cap 0.5 Mg PO EVERY OTHER DAY Prednisone 5 Mg Tab 5 Mg PO BID Warfarin 6 Mg Tab 8 Mg PO 4XWEEK Warfarin 6 Mg Tab 6 Mg PO 3XWEEK Aspirin 81 Mg Chew 81 Mg CHEW DAILY Levothyroxine (Levothyroxine Sodium) 100 Mcg Tab 100 Mcg PO DAILY Allergies: Coded Allergies: No Known Allergies (Verified Allergy, Unknown, 12/11/17) Active Ordered Medications Current Medications Medications (Trade) Dose Ordered Sig/Farzana Route Start Time Stop Time Status Last Admin Lactated Ringer's 1,000 ml @ 100 mls/hr Q10H IV 12/11/17 14:07 12/11/17 14:30 (NS Flush) 2 ml UNSCH PRN IV FLUSH 12/11/17 14:15 (NS Flush) 2 ml BID IV FLUSH 12/11/17 21:00 (Tylenol) 650 mg Q4H PRN PO 12/11/17 14:15 (Zofran Inj) 4 mg Q6H PRN IVP 12/11/17 14:15 (Narcan Inj) 0.4 mg UNSCH PRN IV PUSH 12/11/17 14:15 (Milk Of Magnesia Liq) 30 ml Q12H PRN PO 12/11/17 14:15 (Morphine Inj) 2 mg Q3H PRN IV PUSH 12/11/17 14:15 12/11/17 16:40 Family History Family medical history significant for father having an ID and cardiovascular disease. Social History Patient denies any alcohol, tobacco or illicit drug use. Physical Exam Vital Signs Vital Signs Date Time Temp Pulse Resp B/P (MAP) Pulse Ox O2 Delivery O2 Flow Rate FiO2 12/11/17 15:12 17 12/11/17 14:18 88 18 100/57 (71) 91 Room Air 12/11/17 11:12 96 Room Air 12/11/17 11:09 97.4 79 18 127/64 (85) 96 Physical Exam GENERAL: Well-developed, well-nourished elderly male patient in [facility]. SKIN: Warm and dry. No rash. Neck and back rash, non draining, no urticaria, asymptomatic. HEAD: Normocephalic. Atraumatic. EYES: Pupils equal and round. No scleral icterus. No injection or drainage. ENT: No nasal bleeding or discharge. Mucous membranes pink and moist. NECK: Supple. Trachea midline. CARDIOVASCULAR: Irregularly irregular rhythm. RESPIRATORY: No accessory muscle use. Clear to auscultation. Breath sounds equal bilaterally. GASTROINTESTINAL: Abdomen soft, non-tender, nondistended. Normoactive bowel sounds x4. MUSCULOSKELETAL: No obvious deformities. Extremities without clubbing, cyanosis , or edema. Left hip pain to palpation and active/passive ROM. No tingling/ numbness/paresthesia. NEUROLOGICAL: Awake and alert. No obvious cranial nerve deficits. Motor grossly within normal limits. 5/5 muscle strength in bilateral upper and lower extremities. Normal speech. PSYCHIATRIC: Appropriate mood and affect; insight and judgment normal. Laboratory Laboratory Tests Test 12/11/17 13:30 White Blood Count 6.9 Red Blood Count 3.73 Hemoglobin 12.4 Hematocrit 36.1 Mean Corpuscular Volume 96.8 Mean Corpuscular Hemoglobin 33.3 Mean Corpuscular Hemoglobin Concent 34.4 Red Cell Distribution Width 15.0 Platelet Count 193 Mean Platelet Volume 7.1 Neutrophils (%) (Auto) 86.2 Lymphocytes (%) (Auto) 5.8 Monocytes (%) (Auto) 6.4 Eosinophils (%) (Auto) 0.7 Basophils (%) (Auto) 0.9 Neutrophils # (Auto) 6.0 Lymphocytes # (Auto) 0.4 Monocytes # (Auto) 0.4 Eosinophils # (Auto) 0.0 Basophils # (Auto) 0.1 CBC Comment DIFF FINAL Differential Comment Prothrombin Time 24.1 Prothromb Time International Ratio 2.4 Activated Partial Thromboplast Time 29.9 Blood Urea Nitrogen 24 Creatinine 1.00 Random Glucose 98 Calcium Level 8.5 Sodium Level 139 Potassium Level 3.7 Chloride Level 101 Carbon Dioxide Level 29.8 Anion Gap 8 Estimat Glomerular Filtration Rate 71 Result Diagram: 12/11/17 1330 12/11/17 1330 Imaging Last Impressions Chest X-Ray 12/11/17 1328 Signed Impressions: Service Date/Time: Monday, December 11, 2017 13:41 - CONCLUSION: 1. Cardiomegaly with mild interstitial prominence but no overt failure. 2. Partial obscuration of the right hemidiaphragm probably representing some degree of atelectasis. Cannot exclude a small associated right-sided effusion. João Cullen MD Lower Extremity CT 12/11/17 0000 Signed Impressions: Service Date/Time: Monday, December 11, 2017 12:37 - CONCLUSION: 1. Minimally displaced subcapital fracture of the left femur. 2. Focal area of sclerosis in the left ilium just above the acetabular roof. Both benign and malignant etiologies should be considered with this appearance. Patient appears to have prostatic seeds in place and prostate metastases can be sclerotic. Bone scan could be performed for further evaluation of this region if clinically warranted. João Cullen MD Hip and Pelvis X-Ray 12/11/17 0000 Signed Impressions: Service Date/Time: Monday, December 11, 2017 12:08 - CONCLUSION: Apparent nondisplaced subtle left hip fracture. This could be further evaluated with CT. Delvin Andrade MD Head CT 12/11/17 0000 Signed Impressions: Service Date/Time: Monday, December 11, 2017 12:34 - CONCLUSION: 1. No acute hemorrhage or mass effect. 2. There are interval encephalomalacia in the right parietal lobe likely representing interval infarction. 3. The right mandible remains abnormal in appearance with fluffy proliferative bone changes which have progressed mildly and remain nonspecific. This could represent a bone lesion such as a osteosarcoma or chondrosarcoma however these are usually more aggressive. Infection could potentially have this appearance. This would be unusual for Paget's disease. Delvin Andrade MD Septic Shock Reassessment Septic shock perfusion: reassessment completed Caprini VTE Risk Assessment Caprini VTE Risk Assessment: Mod/High Risk (score >= 2) Caprini Risk Assessment Model Point Value = 1 Point Value = 2 Point Value = 3 Point Value = 5 Age 41-60 Minor surgery BMI > 25 kg/m2 Swollen legs Varicose veins or History of unexplained or recurrent spontaneous Oral contraceptives or hormone replacement Sepsis (< 1 month) Serious lung disease, including pneumonia (< 1 month) Abnormal pulmonary function Acute myocardial infarction Congestive heart failure (< 1 month) History of inflammatory bowel disease Medical patient at bed rest Age 61-74 Arthroscopic surgery Major open surgery (> 45 min) Laparoscopic surgery (> 45 min) Malignancy Confined to bed (> 72 hours) Immobilizing plaster cast Central venous access Age >= 75 History of VTE Family history of VTE Factor V Leiden Prothrombin [id number] Lupus anticoagulant Anticardiolipin antibodies Elevated serum homocysteine Heparin-induced thrombocytopenia Other congenital or acquired thrombophilia Stroke (< 1 month) Elective arthroplasty Hip, pelvis, or leg fracture Acute spinal cord injury (< 1 month) Prophylaxis Regimen Total Risk Factor Score Risk Level Prophylaxis Regimen 0-1 Low Early ambulation 2 Moderate Order ONE of the following: *Sequential Compression Device (SCD) *Heparin 5000 units SQ BID 3-4 Higher Order ONE of the following medications: *Heparin 5000 units SQ TID *Enoxaparin/Lovenox 40 mg SQ daily (WT < 150 kg, CrCl > 30 mL/min) *Enoxaparin/Lovenox 30 mg SQ daily (WT < 150 kg, CrCl > 10-29 mL/min) *Enoxaparin/Lovenox 30 mg SQ BID (WT < 150 kg, CrCl > 30 mL/min) AND/OR *Sequential Compression Device (SCD) 5 or more Highest Order ONE of the following medications: *Heparin 5000 units SQ TID (Preferred with Epidurals) *Enoxaparin/Lovenox 40 mg SQ daily (WT < 150 kg, CrCl > 30 mL/min) *Enoxaparin/Lovenox 30 mg SQ daily (WT < 150 kg, CrCl > 10-29 mL/min) *Enoxaparin/Lovenox 30 mg SQ BID (WT < 150 kg, CrCl > 30 mL/min) AND *Sequential Compression Device (SCD) Assessment and Plan Assessment and Plan This is an 82-year-old male patient with a known medical history of prostate cancer with metastases to the bone, atrial fibrillation, hypertension and CAD with history of ID and stent placement who presented to the ED with left hip pain status post fall at home. Nondisplaced left hip fracture status post fall at home - Left lower extremity CT showing minimally displaced subcapital fx of the left femur. - Head reviewed showing no acute hemorrhage or mas effect, Encephalomalacia. - Orthopedic consulted, appreciate input and recommendations. - Pain control, Morphine IV available per pain scale. Monitor for constipation, PRN available. Atrial fibrillation, chronic History of CAD with history of ID and cardiac stent placement Hypertension, chronic - EKG reviewed showing atrial fibrillation, controlled heart rate, no ST changes. Cardiac telemetry continued, monitor for any arrhythmias - Continue metoprolol and Cardizem. Hold Coumadin for expected surgery. INR 2.4. Will recheck in a.m. - Continue to monitor BP trends. Controlled at this time. - Ensure hydration, continue IV fluid. Will allow to eat tonight. N.p.o. after midnight. - Orthopedic consulted, spoke with him, will consider surgery tomorrow if INR decreased. Follow. - CBC and BMP reviewed, essentially unremarkable. Neck and back rash, unknown etiology: Denies any change in medications or detergents. Unknown etiology. Patient is asymptomatic at this time, will continue to monitor. No signs of infections. Afebrile. Can consider Benadryl for urticaria if present. Hypothyroidism, chronic: Continue home Synthroid. History of prostate cancer with metastasis to the bone: Patient sees Dr. Ferrell in the outpatient setting. Stable. Supportive care. Head CT showing right mandible abnormal appearance, this is a known change to patient secondary to chemotherapy. DVT prophylaxis: SCDs. Physician Certification 2 Midnight Certification Type: Admission for Inpatient Services Order for Inpatient Services The services are ordered in accordance with Medicare regulations or non- Medicare payer requirements, as applicable. In the case of services not specified as inpatient-only, they are appropriately provided as inpatient services in accordance with the 2-midnight benchmark. Estimated LOS (days): 3 3 days is the estimated time the patient will need to remain in the hospital, assuming treatment plan goals are met and no additional complications. Post-Hospital Plan: Not yet determined Cande Lock Dec 11, 2017 17:03
[2017-12-11 17:20] VITALS: BP 140/62
[2017-12-11 18:00] VITALS: BP 142/85; PULSE 119; RESP 20; TEMP 97.7; O2SAT 94
[2017-12-11 20:59] VITALS: BP 169/85; PULSE 93; RESP 17; TEMP 99.9; O2SAT 93
[2017-12-11] MEDS ORDERED: ONDANSETRON HCL 4 MG/2 ML VIAL IV PUSH SCH (22:00)
[2017-12-11] MEDS: METOPROLOL TARTRATE 25 MG TAB PO SCH (22:11)
[2017-12-11] MEDS ORDERED: POVIDONE IODINE 5% (ANTISEPSIS KIT) 4 APPLICATIONS EACH NARE PRN (22:15)
[2017-12-11] MEDS ORDERED: CHLORHEXIDINE GLUCONATE 2 % 1 PACK (2 CLOTHS) TOPICAL PRN (22:15)
[2017-12-11] MEDS ORDERED: SODIUM CHLORID 0.9% 500 ML IV PRN (22:15)
[2017-12-11] MEDS ORDERED: LACTATED RINGER'S 1000 ML IV PRN (22:15)
[2017-12-11] MEDS: SODIUM CHLORIDE 0.9% FLUSH 10 ML FLUSH IV FLUSH SCH (22:16)
[2017-12-12 00:06] VITALS: BP 114/58; PULSE 108; RESP 17; TEMP 99.2; O2SAT 96
[2017-12-12 04:16] VITALS: BP 106/55; PULSE 111; RESP 18; TEMP 98.1; O2SAT 96
[2017-12-12] MEDS: LACTATED RINGER'S 1000 ML INJ 1,000 ML IV SCH ×3 (05:32→21:30)
[2017-12-12] MEDS: LEVOTHYROXINE SODIUM 100 MCG TAB PO SCH (05:47)
[2017-12-12 06:15] LABS: AUTOMATED NEUTROPHIL # 7.6 TH/MM3 (1.8-7.7); BASOPHIL % 0.5 % (0.0-2.0); EOSINOPHIL # 0.2 TH/MM3 (0-0.4); EOSINOPHIL % 1.8 % (0.0-4.0); HEMATOCRIT 34.9 % (39.0-51.0); HEMOGLOBIN 11.9 GM/DL (13.0-17.0); LYMPHOCYTE # 0.5 TH/MM3 (1.0-4.8); MEAN CELL VOLUME 96.9 FL (80.0-100.0); MEAN PLATELET VOLUME 7.7 FL (7.0-11.0); MONO % 5.9 % (0.0-8.0); MONOCYTE # 0.5 TH/MM3 (0-0.9); NEUT % 85.8 % (16.0-70.0); PLATELET COUNT 179 TH/MM3 (150-450); RED CELL DISTRIBUTION WIDTH 15.2 % (11.6-17.2); WHITE BLOOD COUNT 8.8 TH/MM3 (4.0-11.0)
[2017-12-12 06:28] LABS: INTERNATIONAL NORMALIZED RATIO 1.8 RATIO; PROTHROMBIN TIME - PATIENT 18.1 SEC (9.8-11.6)
[2017-12-12 06:42] LABS: BICARBONATE 30.6 MEQ/L (21.0-32.0); CREATININE 0.92 MG/DL (0.60-1.30)
[2017-12-12 08:00] VITALS: BP 123/63; PULSE 97; RESP 16; TEMP 97.9; O2SAT 95
[2017-12-12] MEDS: METOPROLOL TARTRATE 25 MG TAB PO SCH ×2 (09:00→21:26)
[2017-12-12] MEDS: ASPIRIN 81 MG CHEW TAB CHEW SCH (09:00)
[2017-12-12] MEDS: DILTIAZEM-CD 120 MG CAP ER PO SCH (09:00)
[2017-12-12] MEDS: CHOLECALCIFEROL (VIT D3) 5000 UNIT CAP PO SCH (09:00)
[2017-12-12] MEDS: SODIUM CHLORIDE 0.9% FLUSH 10 ML FLUSH IV FLUSH SCH ×2 (09:00→21:00)
[2017-12-12] MEDS ORDERED: PERC5TAB12 PO (09:31)
[2017-12-12] MEDS ORDERED: ceFAZolin INJ 1,000 MG VIAL ONE (11:43)
[2017-12-12] MEDS ORDERED: GENTAMICIN SULFATE 80 MG/2 ML VIAL ONE (11:43)
[2017-12-12] MEDS ORDERED: ACETAMINOPHEN 1000 MG/100 ML 100 ML IV ONE (11:57)
[2017-12-12] MEDS ORDERED: PROPOFOL 200 MG/20 ML AMP IV ONE (12:00)
[2017-12-12] MEDS ORDERED: ONDANSETRON HCL 4 MG/2 ML VIAL IV ONE (12:00)
[2017-12-12] MEDS ORDERED: LIDOCAINE HCL 1% PF 5 ML SYRINGE OTHER ONE (12:00)
[2017-12-12] MEDS ORDERED: PHENYLEPH/NS 1000 MCG/10 ML SYR IV ONE (12:00)
[2017-12-12] MEDS ORDERED: PHENYLEPHRINE HCL 10 MG/ML VIAL IV ONE (12:00)
[2017-12-12] MEDS ORDERED: DO NOT ADM ANY ANTICOAGULANT DRUGS PRN (12:37)
--- NOTE | 2017-12-12 12:50 | RADRPT ---
EXAM DATE/TIME: 12/12/2017 12:04 [place] COMPARISON: HIP LEFT (AP&LAT 2/3VWS) W AP PELVIS, December 11, 2017, 12:08. CT HIP LEFT W/O CONTRAST, December 11, 2017, 12:37. INDICATIONS : Left hip pinning of a subcapital fracture. MEDICAL HISTORY : Cardiovascular disease. Hyperparathyroidism. Hypertension. Ca prostate, bone mets.Afib SURGICAL HISTORY : Cholecystectomy. Rt hip ENCOUNTER: Subsequent ACUITY: 2 days PAIN SCORE: Non-responsive. LOCATION: Left Hip. FINDINGS: 2 coned-down views of the left hip were obtained using a matrix camera demonstrate placement of 3 lag type screws transfixing the subcapital fracture. Fragments are in anatomic alignment. The hip joint is intact. CONCLUSION: Status post open the rigid internal fixation. Delvin Andrade MD on December 12, 2017 at 12:47 Board Certified Radiologist. This report was verified electronically.
[2017-12-12 13:25] VITALS: BP 101/58; PULSE 78; RESP 18; TEMP 97.2; O2SAT 90
--- NOTE | 2017-12-12 13:55 | HHI.PR ---
Subjective Remarks This is an 82-year-old male patient with a known medical history of prostate cancer with metastases to the bone, Hypothyroidism,atrial fibrillation, hypertension and CAD status post PCI and stent placement x 4, with history of CT and stent placement, who came to ER status post fall, Patient states he lives at an assisted living, [facility], he has Atrial fibrillation with INR 2.4, left hip pain, found with Left Hip Fracture. has CVA with residual Left weakness. 12/12: Seen in his bedroom in the presence of His two Sons, status post Left Hip percutaneous screw fixation, pre operative diagnosis status post Left valgus impacted femora neck fracture. patient stable no nausea, vomit or diarrhea. Objective Vital Signs Date Time Temp Pulse Resp B/P (MAP) Pulse Ox O2 Delivery O2 Flow Rate FiO2 12/12/17 13:25 97.2 78 18 101/58 (72) 90 12/12/17 12:25 98.8 92 14 134/59 (84) 92 Nasal Cannula 3 12/12/17 08:00 97.9 97 16 123/63 (83) 95 12/12/17 04:16 98.1 111 18 106/55 (72) 96 12/12/17 00:06 99.2 108 17 114/58 (76) 96 12/11/17 20:59 99.9 93 17 169/85 (113) 93 12/11/17 18:00 97.7 119 20 142/85 (104) 94 12/11/17 17:20 98 20 140/62 (88) 95 Nasal Cannula 2.00 12/11/17 16:45 91 Nasal Cannula 2.00 12/11/17 15:12 17 12/11/17 14:18 88 18 100/57 (71) 91 Room Air I/O 12/11/17 12/11/17 12/11/17 12/12/17 12/12/17 12/12/17 07:00 15:00 23:00 07:00 15:00 23:00 Intake Total 360 ml 800 ml Output Total 20 ml Balance 360 ml 780 ml Intake Oral 360 ml IV Total 800 ml Output Estimated Blood Loss 20 ml # Voids 2 # Bowel Movements 0 Result Diagram: 12/12/17 0459 12/12/17 0459 Imaging Last Impressions Hip X-Ray 12/12/17 0000 Signed Impressions: Service Date/Time: Tuesday, December 12, 2017 12:04 - CONCLUSION: Status post open the rigid internal fixation. Delvin Andrade MD Chest X-Ray 12/11/17 1328 Signed Impressions: Service Date/Time: Monday, December 11, 2017 13:41 - CONCLUSION: 1. Cardiomegaly with mild interstitial prominence but no overt failure. 2. Partial obscuration of the right hemidiaphragm probably representing some degree of atelectasis. Cannot exclude a small associated right-sided effusion. João Cullen MD Lower Extremity CT 12/11/17 0000 Signed Impressions: Service Date/Time: Monday, December 11, 2017 12:37 - CONCLUSION: 1. Minimally displaced subcapital fracture of the left femur. 2. Focal area of sclerosis in the left ilium just above the acetabular roof. Both benign and malignant etiologies should be considered with this appearance. Patient appears to have prostatic seeds in place and prostate metastases can be sclerotic. Bone scan could be performed for further evaluation of this region if clinically warranted. João Cullen MD Hip and Pelvis X-Ray 12/11/17 0000 Signed Impressions: Service Date/Time: Monday, December 11, 2017 12:08 - CONCLUSION: Apparent nondisplaced subtle left hip fracture. This could be further evaluated with CT. Delvin Andrade MD Head CT 12/11/17 0000 Signed Impressions: Service Date/Time: Monday, December 11, 2017 12:34 - CONCLUSION: 1. No acute hemorrhage or mass effect. 2. There are interval encephalomalacia in the right parietal lobe likely representing interval infarction. 3. The right mandible remains abnormal in appearance with fluffy proliferative bone changes which have progressed mildly and remain nonspecific. This could represent a bone lesion such as a osteosarcoma or chondrosarcoma however these are usually more aggressive. Infection could potentially have this appearance. This would be unusual for Paget's disease. Delvin Andrade MD Procedures status post Left Hip percutaneous screw fixation, pre operative diagnosis status post Left valgus impacted femoral neck fracture Other Results Laboratory Tests Test 12/11/17 13:30 12/12/17 04:59 Activated Partial Thromboplast Time 29.9 SEC White Blood Count 8.8 TH/MM3 Red Blood Count 3.60 MIL/MM3 Hemoglobin 11.9 GM/DL Hematocrit 34.9 % Mean Corpuscular Volume 96.9 FL Mean Corpuscular Hemoglobin 33.0 PG Mean Corpuscular Hemoglobin Concent 34.0 % Red Cell Distribution Width 15.2 % Platelet Count 179 TH/MM3 Mean Platelet Volume 7.7 FL Neutrophils (%) (Auto) 85.8 % Lymphocytes (%) (Auto) 6.0 % Monocytes (%) (Auto) 5.9 % Eosinophils (%) (Auto) 1.8 % Basophils (%) (Auto) 0.5 % Neutrophils # (Auto) 7.6 TH/MM3 Lymphocytes # (Auto) 0.5 TH/MM3 Monocytes # (Auto) 0.5 TH/MM3 Eosinophils # (Auto) 0.2 TH/MM3 Basophils # (Auto) 0.0 TH/MM3 CBC Comment DIFF FINAL Differential Comment Prothrombin Time 18.1 SEC Prothromb Time International Ratio 1.8 RATIO Blood Urea Nitrogen 27 MG/DL Creatinine 0.92 MG/DL Random Glucose 98 MG/DL Calcium Level 8.0 MG/DL Sodium Level 138 MEQ/L Potassium Level 3.9 MEQ/L Chloride Level 101 MEQ/L Carbon Dioxide Level 30.6 MEQ/L Anion Gap 6 MEQ/L Estimat Glomerular Filtration Rate 78 ML/MIN Objective Remarks GENERAL: No acute distress. HEAD: Normocephalic. Atraumatic. EYES: Pupils equal and round. No scleral icterus. No injection or drainage. ENT: No nasal bleeding or discharge. NECK: Supple. Trachea midline. CARDIOVASCULAR: Irregularly irregular rhythm. RESPIRATORY: No accessory muscle use. Clear to auscultation. Breath sounds equal bilaterally. GASTROINTESTINAL: Abdomen soft, non-tender, nondistended. Normoactive bowel sounds x4. MUSCULOSKELETAL: left hip dressed. Medications and IVs Current Medications Medications (Trade) Dose Ordered Sig/Farzana Route Start Time Stop Time Status Last Admin Lactated Ringer's 1,000 ml @ 100 mls/hr Q10H IV 12/11/17 14:07 12/12/17 05:32 (NS Flush) 2 ml UNSCH PRN IV FLUSH 12/11/17 14:15 (NS Flush) 2 ml BID IV FLUSH 12/11/17 21:00 12/11/17 22:16 (Tylenol) 650 mg Q4H PRN PO 12/11/17 14:15 (Zofran Inj) 4 mg Q6H PRN IVP 12/11/17 14:15 (Narcan Inj) 0.4 mg UNSCH PRN IV PUSH 12/11/17 14:15 (Milk Of Magnesia Liq) 30 ml Q12H PRN PO 12/11/17 14:15 (Morphine Inj) 2 mg Q3H PRN IV PUSH 12/11/17 14:15 12/11/17 16:40 (Aspirin Chew) 81 mg DAILY CHEW 12/12/17 09:00 (Vitamin D3) 5,000 units DAILY PO 12/12/17 09:00 (Cardizem Cd) 120 mg DAILY PO 12/12/17 09:00 (Lasix) 20 mg EVERY OTHER DAY PO 12/13/17 09:00 (Synthroid) 100 mcg DAILY@0600 PO 12/12/17 06:00 12/12/17 05:47 (Lopressor) 25 mg Q12HR PO 12/11/17 21:00 12/11/17 22:11 (Proscar) 5 mg EVERY OTHER DAY PO 12/13/17 09:00 Cefazolin Sodium 1000 mg/Sodium Chloride 100 ml @ 200 mls/hr QUARRY SUPERVISOR IV 12/11/17 22:00 12/15/17 21:59 Lactated Ringer's 1,000 ml @ 30 mls/hr Q24H PRN IV 12/11/17 22:15 12/14/17 22:14 Sodium Chloride 500 ml @ 30 mls/hr [id number] PRN IV 12/11/17 22:15 12/14/17 22:14 (Betadine 5% Antisepsis Kit) 1 applic QUARRY SUPERVISOR PRN EACH NARE 12/11/17 22:15 12/14/17 22:14 (Chlorhexidine 2% Cloth) 3 pack QUARRY SUPERVISOR PRN TOPICAL 12/11/17 22:15 12/14/17 22:14 Miscellaneous Information ALL NURSING DEPARTME... UNSCH PRN .XX 12/12/17 12:37 12/13/17 12:36 A/P Assessment and Plan This is an 82-year-old male patient with a known medical history of prostate cancer with metastases to the bone, atrial fibrillation, hypertension and CAD with history of CT and stent placement who presented to the ED with left hip pain status post fall at home. Status post fall with secondary Left valgus impacted femoral neck fracture - Left lower extremity CT showing minimally displaced subcapital fx of the left femur. - Head reviewed showing no acute hemorrhage or mas effect, Encephalomalacia. - status post Left Hip percutaneous screw fixation Atrial fibrillation, chronic History of CAD with history of CT and cardiac stent placement Hypertension, chronic - EKG reviewed showing atrial fibrillation, controlled heart rate, no ST changes. Cardiac telemetry continued, monitor for any arrhythmias - Continue metoprolol and Cardizem. Hold Coumadin for expected surgery. INR today 1.8 Neck and back rash, unknown etiology: Denies any change in medications or detergents. Unknown etiology. Patient is asymptomatic at this time, will continue to monitor. No signs of infections. Afebrile. Can consider Benadryl for urticaria if present. Hypothyroidism, chronic: Continue home Synthroid. History of prostate cancer with metastasis to the bone: Patient sees Dr. Ferrell in the outpatient setting. Stable. Supportive care. Head CT showing right mandible abnormal appearance, this is a known change to patient secondary to chemotherapy. DVT prophylaxis: SCDs. Discharge Planning as per Orthopedic Surgery Florentin Schuler MD Dec 12, 2017 13:55
--- NOTE | 2017-12-12 14:08 | PD.OP ---
cc: Clifton José Jr., MD Operative Report Date of Surgery: Dec 12, 2017 Preoperative Diagnosis: Left valgus impacted femoral neck fracture Postoperative Diagnosis: Same Procedure: Left hip percutaneous screw fixation Anesthesia: General Surgeon: Clifton José Electrical Controls Technician(s): Staff Resident Surgeon: None Operation and Findings: Estimated blood loss: [] cc Implants: Synthes stainless steel cannulated screws. The patient received intravenous ancef. After the appropriate anesthesia was administered, the patient was transferred to the fracture table. The fracture was anatomically reduced under fluoroscopic imaging. The LEFT hip was prepped and draped in usual sterile fashion. Using fluoroscopic guidance we established a small incision on the lateral aspect of the hip. We then incised through the deep fascia as well. We placed three threaded guidewires in a triangular configuration, starting laterally with the tips of the guidewires placed within the femoral head. We confirmed that there was no intra-articular penetration of the tips of these guidewires. The lateral aspect of the guidewires were kept proximal to the lower portion of the lesser trochanter to reduce the risk of periprosthetic fracture. We measured the appropriate depth for the screws and then drilled the cortex laterally. The 3 screws were then placed within the bone. The screws purchase into the bone was considered to be great. We took final fluoroscopic imaging which revealed that the fracture remained good position. The hardware was in good position as well. The wounds were thoroughly irrigated and then closed with willi. The postoperative plan is to 50% weightbearing. Additionally, we will initiate postoperative antibiotics for 24 hours along with DVT prophylaxis consisting of early mobilization, SCDs, compression stockings, and lovenox. IMPLANTS USED Synthes POSTP-OP PLAN OF ACTIVITY Antibiotics: Ancef Antiocoagulation: Lovenox bridging then resume Coumadin back to his preinjury therapeutic level on postoperative day 2 Weight bearing status: 50% Dressing: none Dispo: SNF. Clifton José Jr., MD Dec 12, 2017 14:08
--- NOTE | 2017-12-12 14:14 | PD.CONS ---
cc: Clifton José Jr., MD HPI Service Orthopedic Surgeons Consult Requested By Primary Care Physician Non-Staff Admission Diagnosis L HIP FX Diagnoses: Chief Complaint: Left hip fracture History of Present Illness 82-year-old male patient with a known medical history of prostate cancer with metastases to the bone, atrial fibrillation, hypertension and CAD with history of WI and stent placement who presented to the ED with left hip pain status post fall at home. Patient states he lives at an assisted living, [facility], and fell at home after feeling like his "left knee gave out" and he collapsed to the floor. Patient denies hitting his head or losing consciousness. Patient denies any dizziness, lightheadedness, diplopia or blurry vision. -c/o LEFT hip pain and inability bear weight. -X-ray taken the emergency department reveal valgus impacted left femoral neck fracture -Denies any head injuries. Denies loss of consciousness. -Currently is confused, pain localized at hip , patient's is 3 out of 10, exacerbated by any range of motion, WB, relieved at rest and with IV pain medicine, pain is sharp nonradiating, dull, not associated with any paresthesia and numbness to the extremity. At the time of fall patient was unable to stand up. Patient was brought in via [facility]. Patient denies any recent illness including fever, chills, headache, shortness of breath, abdominal pain, nausea, vomiting, diarrhea dysuria. He does admit to a nonproductive cough times a few weeks. Did see his primary care on Wednesday, as well as his hog grader, Dr. Watts. Patient denies any new changes to his medicines. Does state that his left hip pain is 3 out of 10. Is worse with movement. Denies any incontinence, paresthesia, numbness or tingling. Pain is nonradiating. Patient does have atrial fibrillation on Coumadin, INR 2.4. Denies any history of alcohol, tobacco or illicit drug use. It should be noted that patient fell a couple weeks ago as well. Lives in assisted living, able to perform all activities of daily living independently. ROS - General Review of Systems Constitutional: DENIES: Fatigue, Fever, Chills Eyes: DENIES: Blurred vision, Diplopia Respiratory: COMPLAINS OF: Cough, DENIES: Sputum production, Shortness of breath Cardiovascular: DENIES: Chest pain, Palpitations Gastrointestinal: DENIES: Abdominal pain, Black stools, Bloody stools, Constipation, Diarrhea, Nausea, Vomiting Integumentary: COMPLAINS OF: Rash (Neck rash ) Psychiatric: DENIES: Anxiety Except as stated in HPI: all other systems reviewed are Neg PFSH Past Family Social History Past Medical History CVA with residual left-sided weakness Atrial fibrillation CVA D with history of WI and cardiac stent placement 4 Prostate cancer with metastasis to the bone Hypertension Hypothyroidism Past Surgical History Cholecystectomy CVA status post thrombectomy Prostatectomy Right hip replacement Reported Medications Active Vitamin D3 (Cholecalciferol) 5,000 Unit Cap 5,000 Units PO DAILY Metoprolol Tartrate 25 Mg Tab 25 Mg PO Q12HR Reported Warfarin 3 Mg Tab 3 Mg PO WEDNESDAY,,WED,WED Warfarin 6 Mg Tab 6 Mg PO WED-WED-WED Oysco 500 (Oyster Shell) 500 Mg Calcium (1250 Mg) Tab 2 Tab PO DAILY Lasix (Furosemide) 20 Mg Tab 20 Mg PO EVERY OTHER DAY Diltiazem CD 24 HR 120 Mg Caper 120 Mg PO DAILY Zytiga (Abiraterone) 250 Mg Tab 1,000 Mg PO DAILY Hazardous agent; use appropriate precautions for handling & disposal. Take on an empty stomach, 1 hr before or 2 hrs after food. Swallow whole, do not crush or chew. Avodart (Dutasteride) 0.5 Mg Cap 0.5 Mg PO EVERY OTHER DAY Prednisone 5 Mg Tab 5 Mg PO BID Warfarin 6 Mg Tab 8 Mg PO 4XWEEK Warfarin 6 Mg Tab 6 Mg PO 3XWEEK Aspirin 81 Mg Chew 81 Mg CHEW DAILY Levothyroxine (Levothyroxine Sodium) 100 Mcg Tab 100 Mcg PO DAILY Allergies: Coded Allergies: No Known Allergies (Verified Allergy, Unknown, 12/11/17) Active Ordered Medications Past Family Social History Past Medical History CVA with residual left-sided weakness Atrial fibrillation CVA D with history of WI and cardiac stent placement 4 Prostate cancer with metastasis to the bone Hypertension Hypothyroidism Past Surgical History Cholecystectomy CVA status post thrombectomy Prostatectomy Right hip replacement Allergies: Coded Allergies: No Known Allergies (Verified Allergy, Unknown, 12/11/17) Active Ordered Medications Current Medications Medications (Trade) Dose Ordered Sig/Farzana Route Start Time Stop Time Status Last Admin Lactated Ringer's 1,000 ml @ 100 mls/hr Q10H IV 12/11/17 14:07 12/12/17 05:32 (NS Flush) 2 ml UNSCH PRN IV FLUSH 12/11/17 14:15 (NS Flush) 2 ml BID IV FLUSH 12/11/17 21:00 12/11/17 22:16 (Tylenol) 650 mg Q4H PRN PO 12/11/17 14:15 (Zofran Inj) 4 mg Q6H PRN IVP 12/11/17 14:15 (Narcan Inj) 0.4 mg UNSCH PRN IV PUSH 12/11/17 14:15 (Milk Of Magnmarce Liq) 30 ml Q12H PRN PO 12/11/17 14:15 (Morphine Inj) 2 mg Q3H PRN IV PUSH 12/11/17 14:15 12/11/17 16:40 (Aspirin Chew) 81 mg DAILY CHEW 12/12/17 09:00 (Vitamin D3) 5,000 units DAILY PO 12/12/17 09:00 (Cardizem Cd) 120 mg DAILY PO 12/12/17 09:00 (Lasix) 20 mg EVERY OTHER DAY PO 12/13/17 09:00 (Synthroid) 100 mcg DAILY@0600 PO 12/12/17 06:00 12/12/17 05:47 (Lopressor) 25 mg Q12HR PO 12/11/17 21:00 12/11/17 22:11 (Proscar) 5 mg EVERY OTHER DAY PO 12/13/17 09:00 Cefazolin Sodium 1000 mg/Sodium Chloride 100 ml @ 200 mls/hr SOCIAL MEDIA ANALYST IV 12/11/17 22:00 12/15/17 21:59 Lactated Ringer's 1,000 ml @ 30 mls/hr Q24H PRN IV 12/11/17 22:15 12/14/17 22:14 Sodium Chloride 500 ml @ 30 mls/hr [id number] PRN IV 12/11/17 22:15 12/14/17 22:14 (Betadine 5% Antisepsis Kit) 1 applic SOCIAL MEDIA ANALYST PRN EACH NARE 12/11/17 22:15 12/14/17 22:14 (Chlorhexidine 2% Cloth) 3 pack SOCIAL MEDIA ANALYST PRN TOPICAL 12/11/17 22:15 12/14/17 22:14 Miscellaneous Information ALL NURSING DEPARTME... UNSCH PRN .XX 12/12/17 12:37 12/13/17 12:36 Reported Meds & Active Scripts Active Percocet (Oxycodone-Acetaminophen) 5-325 mg Tab 1 Tab PO Q4H PRN Vitamin D3 (Cholecalciferol) 5,000 Unit Cap 5,000 Units PO DAILY Metoprolol Tartrate 25 Mg Tab 25 Mg PO Q12HR Reported Warfarin 3 Mg Tab 3 Mg PO WEDNESDAY,,WED,WED Warfarin 6 Mg Tab 6 Mg PO WED-WED-WED Oysco 500 (Oyster Shell) 500 Mg Calcium (1250 Mg) Tab 2 Tab PO DAILY Lasix (Furosemide) 20 Mg Tab 20 Mg PO EVERY OTHER DAY Diltiazem CD 24 HR 120 Mg Caper 120 Mg PO DAILY Avodart (Dutasteride) 0.5 Mg Cap 0.5 Mg PO EVERY OTHER DAY Prednisone 5 Mg Tab 5 Mg PO BID Aspirin 81 Mg Chew 81 Mg CHEW DAILY Levothyroxine (Levothyroxine Sodium) 100 Mcg Tab 100 Mcg PO DAILY Family History Family medical history significant for father having an WI and cardiovascular disease. Social History Patient denies any alcohol, tobacco or illicit drug use. Physical Exam Vital Signs Vital Signs Date Time Temp Pulse Resp B/P (MAP) Pulse Ox O2 Delivery O2 Flow Rate FiO2 12/12/17 13:25 97.2 78 18 101/58 (72) 90 12/12/17 12:25 98.8 92 14 134/59 (84) 92 Nasal Cannula 3 12/12/17 08:00 97.9 97 16 123/63 (83) 95 12/12/17 04:16 98.1 111 18 106/55 (72) 96 12/12/17 00:06 99.2 108 17 114/58 (76) 96 12/11/17 20:59 99.9 93 17 169/85 (113) 93 12/11/17 18:00 97.7 119 20 142/85 (104) 94 12/11/17 17:20 98 20 140/62 (88) 95 Nasal Cannula 2.00 12/11/17 16:45 91 Nasal Cannula 2.00 12/11/17 15:12 17 12/11/17 14:18 88 18 100/57 (71) 91 Room Air Physical Exam Demented Head: NC/AT Neck: No pain with any range of motion and neck. Pulmonary: Normal respiratory effort. Bilateral upper extremity: Unable to assess neurologic function.2+ radial artery pulses. Good cap refill. RIGHT lower extremity: Unable to assess neurologic function. Good cap refill. No crepitus with ROM. LEFT lower extremity: Positive logroll. Tender to palpation about the hip. Good cap refill. Soft compartments +EHL/FHL. Laboratory Laboratory Tests Test 12/12/17 04:59 White Blood Count 8.8 Red Blood Count 3.60 Hemoglobin 11.9 Hematocrit 34.9 Mean Corpuscular Volume 96.9 Mean Corpuscular Hemoglobin 33.0 Mean Corpuscular Hemoglobin Concent 34.0 Red Cell Distribution Width 15.2 Platelet Count 179 Mean Platelet Volume 7.7 Neutrophils (%) (Auto) 85.8 Lymphocytes (%) (Auto) 6.0 Monocytes (%) (Auto) 5.9 Eosinophils (%) (Auto) 1.8 Basophils (%) (Auto) 0.5 Neutrophils # (Auto) 7.6 Lymphocytes # (Auto) 0.5 Monocytes # (Auto) 0.5 Eosinophils # (Auto) 0.2 Basophils # (Auto) 0.0 CBC Comment DIFF FINAL Differential Comment Prothrombin Time 18.1 Prothromb Time International Ratio 1.8 Blood Urea Nitrogen 27 Creatinine 0.92 Random Glucose 98 Calcium Level 8.0 Sodium Level 138 Potassium Level 3.9 Chloride Level 101 Carbon Dioxide Level 30.6 Anion Gap 6 Estimat Glomerular Filtration Rate 78 Result Diagram: 12/12/17 0459 12/12/17 0459 Imaging Last 72 hours Impressions Hip X-Ray 12/12/17 0000 Signed Impressions: Service Date/Time: Tuesday, December 12, 2017 12:04 - CONCLUSION: Status post open the rigid internal fixation. Delvin Andrade MD Chest X-Ray 12/11/17 1328 Signed Impressions: Service Date/Time: Monday, December 11, 2017 13:41 - CONCLUSION: 1. Cardiomegaly with mild interstitial prominence but no overt failure. 2. Partial obscuration of the right hemidiaphragm probably representing some degree of atelectasis. Cannot exclude a small associated right-sided effusion. João Cullen MD Lower Extremity CT 12/11/17 0000 Signed Impressions: Service Date/Time: Monday, December 11, 2017 12:37 - CONCLUSION: 1. Minimally displaced subcapital fracture of the left femur. 2. Focal area of sclerosis in the left ilium just above the acetabular roof. Both benign and malignant etiologies should be considered with this appearance. Patient appears to have prostatic seeds in place and prostate metastases can be sclerotic. Bone scan could be performed for further evaluation of this region if clinically warranted. João Cullen MD Hip and Pelvis X-Ray 12/11/17 0000 Signed Impressions: Service Date/Time: Monday, December 11, 2017 12:08 - CONCLUSION: Apparent nondisplaced subtle left hip fracture. This could be further evaluated with CT. Delvin Andrade MD Head CT 12/11/17 0000 Signed Impressions: Service Date/Time: Monday, December 11, 2017 12:34 - CONCLUSION: 1. No acute hemorrhage or mass effect. 2. There are interval encephalomalacia in the right parietal lobe likely representing interval infarction. 3. The right mandible remains abnormal in appearance with fluffy proliferative bone changes which have progressed mildly and remain nonspecific. This could represent a bone lesion such as a osteosarcoma or chondrosarcoma however these are usually more aggressive. Infection could potentially have this appearance. This would be unusual for Paget's disease. Delvin Andrade MD Assessment & Plan Assessment and Plan 82-year-old male patient with a known medical history of prostate cancer with metastases to the bone, atrial fibrillation, hypertension and CAD with history of WI and stent placement who presented to the ED with left hip pain status post fall at home. Patient states he lives at an assisted living, [facility], and fell. He sustained a valgus impacted left femoral neck fracture. Patient history of atrial fibrillation on Coumadin. This morning his INR decreased to 1.8. I recommend percutaneous screw fixation of left hip. I discussed my treatment plans with the patient's POA, as well as risks, benefits and alternatives of surgical Intervention versus nonoperative treatment. In this case, the risks of operative intervention involves bleeding, infection, nonunion , malunion, risks of damage to neurovascular structures, the risk of needing further surgery, posttraumatic arthritis and the risks involved with complication from anesthesia. We will proceed with the above procedure. The patient accepts these risks; understands and agrees with my recommendations. I also discussed my proposed postoperative care and follow-up plan. All questions were answered. Plan for OR Clifton José Jr., MD Dec 12, 2017 14:14
[2017-12-12] MEDS ORDERED: PROMETHAZINE HCL 25 MG TAB PO PRN (14:15)
[2017-12-12] MEDS ORDERED: SENNOSIDES 8.6 MG TAB PO PRN (14:15)
[2017-12-12] MEDS ORDERED: MAGNESIUM HYDROXIDE SUSP 30 ML CUP PO PRN (14:15)
[2017-12-12] MEDS ORDERED: MORPHINE SULFATE 8 MG/ML INJ IV PUSH PRN (14:15)
[2017-12-12] MEDS ORDERED: BISACODYL 10 MG SUPP RECTAL PRN (14:15)
[2017-12-12] MEDS ORDERED: oxyCODONE/ACETAMINOPHEN 5 MG/325 MG TAB PO PRN (14:15)
[2017-12-12] MEDS ORDERED: LACTULOSE SYRUP 20 GM/30 ML CUP PO PRN (14:15)
[2017-12-12] MEDS ORDERED: ZOLPIDEM TARTRATE 5 MG TAB PO PRN (14:15)
[2017-12-12] MEDS ORDERED: SODIUM CHLORIDE 0.9% FLUSH 10 ML FLUSH IV FLUSH PRN (14:15)
[2017-12-12] MEDS ORDERED: Post-op Orders (for Pharmacy) XX ONE (14:15)
[2017-12-12 16:00] VITALS: BP 137/61; PULSE 87; RESP 16; TEMP 97.3; O2SAT 96
[2017-12-12 19:00] VITALS: BP 119/70; PULSE 95; RESP 16; TEMP 99.1; O2SAT 93
[2017-12-12] MEDS ORDERED: SODIUM CHLORIDE 0.9% FLUSH 10 ML FLUSH IV FLUSH SCH (21:00)
[2017-12-12] MEDS: DOCUSATE SODIUM 50 MG/SENNA 8.6 MG TAB PO SCH (21:26)
[2017-12-13] VITALS (7 sets, daily range): BP systolic 100–122; BP diastolic 55–63; PULSE 74–116; RESP 16–18; TEMP 97.8–99; O2SAT 91–95
[2017-12-13] MEDS: ENOXAPARIN SODIUM 30 MG/0.3 ML SYRINGE SQ SCH ×2 (00:18→12:22)
--- NOTE | 2017-12-13 00:41 | EKG ---
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
[2017-12-13 05:49] LABS: INTERNATIONAL NORMALIZED RATIO 1.6 RATIO; PROTHROMBIN TIME - PATIENT 16.4 SEC (9.8-11.6)
[2017-12-13] MEDS: LEVOTHYROXINE SODIUM 100 MCG TAB PO SCH (06:04)
[2017-12-13] MEDS: LACTATED RINGER'S 1000 ML INJ 1,000 ML IV SCH (06:04)
[2017-12-13] MEDS: DOCUSATE SODIUM 50 MG/SENNA 8.6 MG TAB PO SCH ×2 (08:08→21:59)
[2017-12-13] MEDS: CHOLECALCIFEROL (VIT D3) 5000 UNIT CAP PO SCH (08:08)
[2017-12-13] MEDS: ASPIRIN 81 MG CHEW TAB CHEW SCH (08:08)
[2017-12-13] MEDS: DILTIAZEM-CD 120 MG CAP ER PO SCH (08:09)
[2017-12-13] MEDS: METOPROLOL TARTRATE 25 MG TAB PO SCH ×2 (08:09→21:59)
[2017-12-13] MEDS: SODIUM CHLORIDE 0.9% FLUSH 10 ML FLUSH IV FLUSH SCH ×2 (08:09→21:59)
[2017-12-13] MEDS ORDERED: FINASTERIDE 5 MG TAB PO SCH (09:00)
[2017-12-13] MEDS ORDERED: FUROSEMIDE 20 MG TAB PO SCH (09:00)
--- NOTE | 2017-12-13 13:25 | HHI.PR ---
Subjective Remarks This is an 82-year-old male patient with a known medical history of prostate cancer with metastases to the bone, Hypothyroidism,atrial fibrillation, hypertension and CAD status post PCI and stent placement x 4, with history of ND and stent placement, who came to ER status post fall, Patient states he lives at an assisted living, [facility], he has Atrial fibrillation with INR 2.4, left hip pain, found with Left Hip Fracture. has CVA with residual Left weakness. 12/13 Patient's son and caregiver at bedside. Concerned about left thumb swelling and apparent abscess. Patient denies pain. Objective Vitals Vital Signs Date Time Temp Pulse Resp B/P (MAP) Pulse Ox O2 Delivery O2 Flow Rate FiO2 12/13/17 12:00 98.1 88 18 100/57 (71) 94 12/13/17 08:00 98.2 94 18 102/55 (71) 93 12/13/17 04:00 99.0 104 16 110/56 (74) 94 12/13/17 00:00 98.3 116 17 122/63 (82) 93 12/12/17 19:00 99.1 95 16 119/70 (86) 93 12/12/17 16:00 97.3 87 16 137/61 (86) 96 12/12/17 13:25 97.2 78 18 101/58 (72) 90 I/O 12/12/17 12/12/17 12/12/17 12/13/17 12/13/17 12/13/17 07:00 15:00 23:00 07:00 15:00 23:00 Intake Total 360 ml 1040 ml 1000 ml 580 ml Output Total 220 ml Balance 360 ml 820 ml 1000 ml 580 ml Intake Oral 360 ml 240 ml 480 ml IV Total 800 ml 1000 ml 100 ml Output Urine Total 200 ml Estimated Blood Loss 20 ml # Voids 2 2 # Bowel Movements 0 3 Result Diagram: 12/12/17 0459 12/12/17 0459 Imaging Last Impressions Chest X-Ray 12/13/17 0000 Signed Impressions: Service Date/Time: Wednesday, December 13, 2017 13:34 - CONCLUSION: 1. Cardiomegaly again noted with no evidence of pulmonary edema or definite pneumonia. 2. Patchy opacity remains at the lung base without significant change. This may represent atelectasis. Delvin Andrade MD Hip X-Ray 12/12/17 0000 Signed Impressions: Service Date/Time: Tuesday, December 12, 2017 12:04 - CONCLUSION: Status post open the rigid internal fixation. Delvin Andrade MD Lower Extremity CT 12/11/17 0000 Signed Impressions: Service Date/Time: Monday, December 11, 2017 12:37 - CONCLUSION: 1. Minimally displaced subcapital fracture of the left femur. 2. Focal area of sclerosis in the left ilium just above the acetabular roof. Both benign and malignant etiologies should be considered with this appearance. Patient appears to have prostatic seeds in place and prostate metastases can be sclerotic. Bone scan could be performed for further evaluation of this region if clinically warranted. João Cullen MD Hip and Pelvis X-Ray 12/11/17 0000 Signed Impressions: Service Date/Time: Monday, December 11, 2017 12:08 - CONCLUSION: Apparent nondisplaced subtle left hip fracture. This could be further evaluated with CT. Delvin Andrade MD Head CT 12/11/17 0000 Signed Impressions: Service Date/Time: Monday, December 11, 2017 12:34 - CONCLUSION: 1. No acute hemorrhage or mass effect. 2. There are interval encephalomalacia in the right parietal lobe likely representing interval infarction. 3. The right mandible remains abnormal in appearance with fluffy proliferative bone changes which have progressed mildly and remain nonspecific. This could represent a bone lesion such as a osteosarcoma or chondrosarcoma however these are usually more aggressive. Infection could potentially have this appearance. This would be unusual for Paget's disease. Delvin Andrade MD Objective Remarks GENERAL: No acute distress. SKIN: Rash involving the right upper chest and shoulder NECK: Supple. Trachea midline. CARDIOVASCULAR: Irregularly irregular rhythm. RESPIRATORY: No accessory muscle use. Clear to auscultation. Breath sounds equal bilaterally. GASTROINTESTINAL: Abdomen soft, non-tender, nondistended. Normoactive bowel sounds x4. MUSCULOSKELETAL: left hip dressing appear intact. Left thumb with apparent paronychia and abscess formation. A/P Assessment and Plan 82-year-old male patient with a known medical history of prostate cancer with metastases to the bone, atrial fibrillation, hypertension and CAD with history of ND and stent placement who presented to the ED with left hip pain status post fall at home. Status post fall with secondary Left valgus impacted femoral neck fracture - Left lower extremity CT showing minimally displaced subcapital fx of the left femur. - Head reviewed showing no acute hemorrhage or mas effect, Encephalomalacia. - status post Left Hip percutaneous screw fixation Atrial fibrillation, chronic History of CAD with history of ND and cardiac stent placement Hypertension, chronic - EKG reviewed showing atrial fibrillation, controlled heart rate, no ST changes. Cardiac telemetry continued, monitor for any arrhythmias - Continue metoprolol and Cardizem. Resume Coumadin Cough: - Will obtain chest x-ray. Reviewed. No acute changes. - Incentive spirometry. Breathing treatments. Neck and back rash, unknown etiology: Probable shingles. However >72 hrs since onset and lesions are drying out and improving. No pain - Continue to monitor Left thump abscess/paronychia: - Need drainage. Consult Hand surgery. Hypothyroidism, chronic: Continue home Synthroid. History of prostate cancer with metastasis to the bone: Patient sees Dr. Ferrell in the outpatient setting. Stable. Supportive care. Head CT showing right mandible abnormal appearance, this is a known change to patient secondary to chemotherapy. DVT prophylaxis: Lovenox. Resume Coumadin. DC Lovenox once INR therapeutic. Discharge Planning Will need SNF in the next 24-48 hrs. Maddy Whelan MD Dec 13, 2017 13:24
--- NOTE | 2017-12-13 13:38 | PD.ORT.PN ---
Subjective Subjective Remarks Sleepy. Objective Vitals Vital Signs Date Time Temp Pulse Resp B/P (MAP) Pulse Ox O2 Delivery O2 Flow Rate FiO2 12/13/17 12:00 98.1 88 18 100/57 (71) 94 12/13/17 08:00 98.2 94 18 102/55 (71) 93 12/13/17 04:00 99.0 104 16 110/56 (74) 94 12/13/17 00:00 98.3 116 17 122/63 (82) 93 12/12/17 19:00 99.1 95 16 119/70 (86) 93 12/12/17 16:00 97.3 87 16 137/61 (86) 96 I/O 12/12/17 12/12/17 12/12/17 12/13/17 12/13/17 12/13/17 06:59 14:59 22:59 06:59 14:59 22:59 Intake Total 360 ml 1040 ml 1000 ml 580 ml Output Total 220 ml Balance 360 ml 820 ml 1000 ml 580 ml Intake Oral 360 ml 240 ml 480 ml IV Total 800 ml 1000 ml 100 ml Output Urine Total 200 ml Estimated Blood Loss 20 ml # Voids 2 2 # Bowel Movements 0 3 Result Diagram: 12/12/17 0459 12/12/17 0459 Other Results Laboratory Tests Test 12/13/17 05:12 Prothromb Time International Ratio 1.6 RATIO Prothrombin Time 16.4 SEC (9.8-11.6) Objective Remarks Pleasantly confused. Pulmonary: Normal respiratory effort. Left lower extremity: Neurovascularly intact, +EHL/FHL, dressing clean, dry and intact. + PT/DP pulses. Supple compartments. Negative Homans sign. Right lower extremity: neurovascularly intact Assessment & Plan Assessment and Plan POD 1- left hip perc screw fixation sleepy and confused 50% WB lovenox then bridge to coumadin qday dressing change POD 2 SNF dc Clif[place] José Jr., MD Dec 13, 2017 13:38
--- NOTE | 2017-12-13 14:19 | RADRPT ---
EXAM DATE/TIME: 12/13/2017 13:34 [facility] COMPARISON: CHEST SINGLE AP, December 11, 2017, 13:41. INDICATIONS : Shortness of breath, cough. MEDICAL HISTORY : Hypertension. SURGICAL HISTORY : None. ENCOUNTER: Subsequent ACUITY: 2 days PAIN SCORE: 0/10 LOCATION: Bilateral chest FINDINGS: 2 AP erect portable views of the chest were obtained again demonstrated moderate cardiomegaly. There are mild patchy opacities again noted at both lung bases with partial obscuration of the right hemidi aphragm. No new confluent infiltrates or effusions are identified. There is no definite perihilar blaise ma. The patient's head is flexed obscuring the right lung apex which is not evaluated. CONCLUSION: 1. Cardiomegaly again noted with no evidence of pulmonary edema or definite pneumonia. 2. Patchy opacity remains at the lung base without significant change. This may represent atelectasis . Delvin Andrade MD on December 13, 2017 at 14:16 Board Certified Radiologist. This report was verified electronically.
[2017-12-13] MEDS: RESP: ALBUTEROL 2.5 MG/IPRATROPIUM 0.5 MG NEB (SCH) NEB ×2 (15:24→19:11)
--- NOTE | 2017-12-13 16:09 | PD.OP ---
Operative Report Preoperative Diagnosis: (1) Acute paronychia of left thumb Postoperative Diagnosis: (1) Acute paronychia of left thumb Procedure: incision and drainage left thumb Anesthesia: none Surgeon: Russel Singh Stock Grader(s): cielo Operation and Findings: acute paronychia with abscess over the lateral and eponychial skin fold, about 2 -3 cc of purulent material drained left thumb Russel Singh MD Dec 13, 2017 16:09
--- NOTE | 2017-12-13 17:27 | MB ---
cc: Russel Singh MD DATE: 12/13/2017 REASON FOR CONSULTATION: Left thumb abscess. HISTORY OF PRESENT ILLNESS: The patient is an 82-year-old male admitted with a history of a left hip fracture, status post percutaneous screw placement who was found to have an abscess of the left thumb and hand surgery was consulted. On further questioning of the patient and his relatives, the patient has had symptoms involving the left thumb for the past 3 days. Initially, they noticed redness over the left thumb region, which has developed into an abscess over the weekend. Complains of mild pain. Denies any drainage. Denies any constant throbbing pain or fever. PAST MEDICAL HISTORY: As noted. SURGICAL HISTORY: Significant for percutaneous screw placement, left hip. PHYSICAL EXAM: GENERAL: The patient is sleepy, but does respond to oral commands. He is oriented x 3. EXTREMITIES: Examination of left hand/thumb reveals an abscess involving the lateral and eponychial skinfold of the left thumb with mild surrounding erythema. There is evidence of fluctuation on the region. No drainage noted. Mild tenderness noted over the pulp region. No evidence of compartment syndrome of the pulp noted. He has intact sensation over the pulp. He has intact distal circulation. Range of motion of the thumb is painless. ASSESSMENT: An 82-year-old male with acute paronychia left thumb abscess. PLAN: The plan will be to proceed with bedside incision and drainage of the abscess. The risks and benefits of the procedure were explained to the patient. The patient was consented for the same. We will proceed with incision and drainage of the left thumb abscess. Incision and drainage was carried out, which will be dictated on a separate bedside operative note. A dry dressing was applied. The plan will be for dressing changes, continued antibiotics, followup cultures and hand surgery will follow. Russel Singh MD SE/DL , 04:05 PM , 05:26 PM
--- NOTE | 2017-12-13 17:32 | MP ---
cc: Russel Singh MD DATE OF OPERATION: 12/13/2017 This was a bedside procedure. PREOPERATIVE DIAGNOSIS: Acute paronychia left thumb. POSTOPERATIVE DIAGNOSIS: Acute paronychia with abscess, left thumb. PROCEDURE PERFORMED: Incision and drainage, left thumb, acute paronychia. SURGEON: Dr. Singh. COMPLICATIONS: None. ESTIMATED BLOOD LOSS: Minimal. TOURNIQUET TIME: No tourniquet was used. SPECIMENS: Material sent for culture and sensitivity. INDICATIONS: The patient is an 82-year-old male admitted with an impacted femoral neck fracture on the left side status post percutaneous screw placement who was found to have an abscess of the left thumb on examination. He had acute paronychia with abscess involving the lateral nail fold and eponychial skinfold with fluctuation. Risks and benefits of the procedure were explained to the patient. The left thumb was sterilely prepped and draped. Incision was made over the lateral nail fold and eponychial skin fold. The abscess was opened and material was sent for culture and sensitivity. There was about 2-3 mL of purulent material that was drained. The skin overlying the abscess was necrotic and was excised. A thorough wash of the wound was carried out using hydrogen peroxide and normal saline. A dry dressing was applied. The patient tolerated the procedure well. PLAN: Plan will be daily dressing changes and followup cultures. Russel Singh MD SE/DL , 04:07 PM , 05:31 PM
[2017-12-14] MEDS: ENOXAPARIN SODIUM 30 MG/0.3 ML SYRINGE SQ SCH ×2 (00:52→12:00)
[2017-12-14 02:42] VITALS: BP 122/60; PULSE 94; RESP 16; TEMP 98.2; O2SAT 94
[2017-12-14 05:26] LABS: INTERNATIONAL NORMALIZED RATIO 1.4 RATIO; PROTHROMBIN TIME - PATIENT 13.8 SEC (9.8-11.6)
[2017-12-14 05:42] VITALS: BP 126/58; PULSE 80; RESP 16; TEMP 98.6; O2SAT 90
[2017-12-14] MEDS: LEVOTHYROXINE SODIUM 100 MCG TAB PO SCH (06:02)
[2017-12-14 08:00] VITALS: BP 146/76; PULSE 115; RESP 19; TEMP 97.2; O2SAT 92
[2017-12-14] MEDS: RESP: ALBUTEROL 2.5 MG/IPRATROPIUM 0.5 MG NEB (SCH) NEB ×2 (09:11→13:40)
[2017-12-14 09:12] VITALS: O2SAT 92
[2017-12-14] MEDS ORDERED: ENOX30P SQ (09:34)
--- NOTE | 2017-12-14 09:35 | HHI.DS ---
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 ICD Code: M84.552A - Pathological fracture in neoplastic disease, left femur, initial encounter for fracture (2) Atrial fibrillation ICD Code: I48.91 - Unspecified atrial fibrillation (3) Acute paronychia of left thumb ICD Code: L03.012 - Cellulitis of left finger Procedures Left hip percutaneous screw fixation Left thumb abscess I&D Brief History - From Admission HPI from the admitting physician 82-year-old male patient with a known medical history of prostate cancer with metastases to the bone, atrial fibrillation, hypertension and CAD with history of NV and stent placement who presented to the ED with left hip pain status post fall at home. [facility] and [facility] at home after feeling like his "left knee gave out" and he collapsed to the floor. Patient denies hitting his head or losing consciousness. Patient denies any dizziness, lightheadedness, diplopia or blurry vision. At the time of fall patient was unable to stand up. Patient was brought in via [facility]. Patient denies any recent illness including fever, chills, headache, shortness of breath, abdominal pain, nausea, vomiting, diarrhea dysuria. He does admit to a nonproductive cough times a few weeks. Did see his primary care on Wednesday, as well as his bowstring maker, Dr. Watts. Patient denies any new changes to his medicines. Does state that his left hip pain is 3 out of 10. Is worse with movement. Denies any incontinence, paresthesia, numbness or tingling. Pain is nonradiating. Patient does have atrial fibrillation on Coumadin, INR 2.4. Denies any history of alcohol, tobacco or illicit drug use. It should be noted that patient fell a couple weeks ago as well. Lives in assisted living, able to perform all activities of daily living independently. CBC/BMP: 12/12/17 0459 12/12/17 0459 Significant Findings Laboratory Tests Test 12/11/17 13:30 12/12/17 04:59 12/13/17 05:12 12/14/17 04:42 Red Blood Count 3.73 MIL/MM3 (4.50-5.90) 3.60 MIL/MM3 (4.50-5.90) Hemoglobin 12.4 GM/DL (13.0-17.0) 11.9 GM/DL (13.0-17.0) Hematocrit 36.1 % (39.0-51.0) 34.9 % (39.0-51.0) Neutrophils (%) (Auto) 86.2 % (16.0-70.0) 85.8 % (16.0-70.0) Lymphocytes (%) (Auto) 5.8 % (9.0-44.0) 6.0 % (9.0-44.0) Lymphocytes # (Auto) 0.4 TH/MM3 (1.0-4.8) 0.5 TH/MM3 (1.0-4.8) Prothrombin Time 24.1 SEC (9.8-11.6) 18.1 SEC (9.8-11.6) 16.4 SEC (9.8-11.6) 13.8 SEC (9.8-11.6) Blood Urea Nitrogen 24 MG/DL (7-18) 27 MG/DL (7-18) Estimat Glomerular Filtration Rate 71 ML/MIN (>89) 78 ML/MIN (>89) Calcium Level 8.0 MG/DL (8.5-10.1) Imaging Last Impressions Chest X-Ray 12/13/17 0000 Signed Impressions: Service Date/Time: Wednesday, December 13, 2017 13:34 - CONCLUSION: 1. Cardiomegaly again noted with no evidence of pulmonary edema or definite pneumonia. 2. Patchy opacity remains at the lung base without significant change. This may represent atelectasis. Delvin Andrade MD Hip X-Ray 12/12/17 0000 Signed Impressions: Service Date/Time: Tuesday, December 12, 2017 12:04 - CONCLUSION: Status post open the rigid internal fixation. Delvin Andrade MD Lower Extremity CT 12/11/17 0000 Signed Impressions: Service Date/Time: Monday, December 11, 2017 12:37 - CONCLUSION: 1. Minimally displaced subcapital fracture of the left femur. 2. Focal area of sclerosis in the left ilium just above the acetabular roof. Both benign and malignant etiologies should be considered with this appearance. Patient appears to have prostatic seeds in place and prostate metastases can be sclerotic. Bone scan could be performed for further evaluation of this region if clinically warranted. João Cullen MD Hip and Pelvis X-Ray 12/11/17 0000 Signed Impressions: Service Date/Time: Monday, December 11, 2017 12:08 - CONCLUSION: Apparent nondisplaced subtle left hip fracture. This could be further evaluated with CT. Delvin Andrade MD Head CT 12/11/17 0000 Signed Impressions: Service Date/Time: Monday, December 11, 2017 12:34 - CONCLUSION: 1. No acute hemorrhage or mass effect. 2. There are interval encephalomalacia in the right parietal lobe likely representing interval infarction. 3. The right mandible remains abnormal in appearance with fluffy proliferative bone changes which have progressed mildly and remain nonspecific. This could represent a bone lesion such as a osteosarcoma or chondrosarcoma however these are usually more aggressive. Infection could potentially have this appearance. This would be unusual for Paget's disease. Delvin Andrade MD PE at Discharge GENERAL: No acute distress. SKIN: Rash involving the right upper chest and shoulder NECK: Supple. Trachea midline. CARDIOVASCULAR: Irregularly irregular rhythm. RESPIRATORY: No accessory muscle use. Clear to auscultation. Breath sounds equal bilaterally. GASTROINTESTINAL: Abdomen soft, non-tender, nondistended. Normoactive bowel sounds x4. MUSCULOSKELETAL: left hip dressing appear intact. Left thumb status post I&D. Wound appear clean and dry. Pt update on day of discharge Patient reports he is feeling okay. Denies any pain. Hospital Course 82-year-old male patient with a known medical history of prostate cancer with metastases to the bone, atrial fibrillation, hypertension and CAD with history of NV and stent placement who presented to the ED with left hip pain status post fall at home. 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 - Head reviewed showing no acute hemorrhage or mas effect, Encephalomalacia. - status post Left Hip percutaneous screw fixation Atrial fibrillation, chronic History of CAD with history of NV and cardiac stent placement Hypertension, chronic - EKG reviewed showing atrial fibrillation, controlled heart rate, no ST changes. - Continue metoprolol and Cardizem. Resume Coumadin. Bridged with Lovenox. Cough: -Improved. Chest x-ray with no acute findings. Incentive spirometry Neck and back rash, unknown etiology: Probable shingles. However >72 hrs since onset and lesions are drying out and improving. No pain - Continue to monitor Left thump abscess/paronychia: -Evaluated by hand surgery, status post bedside I&D. Wound appear clean. Hypothyroidism, chronic: Continue home Synthroid. History of prostate cancer with metastasis to the bone: Patient sees Dr. Ferrell in the outpatient setting. Supportive care. Head CT showing right mandible abnormal appearance, this is a known change to patient secondary to chemotherapy. Pt Condition on Discharge: Stable Discharge Disposition: Discharge to SNF Discharge Time: > 30 minutes Discharge Instructions DIET: Follow Instructions for: Heart Healthy Diet Activities you can perform: See Additionl Instruction Other Activity Instructions: Per Orthopedics instructions. Follow up Referrals: Orthopedics - 2 Weeks @ [facility] with Nilton Argueta MD New Medications: Oxycodone-Acetaminophen (Percocet) 5-325 mg Tab 1 TAB PO Q4H PRN for PAIN, #60 TAB 0 Refills Enoxaparin Inj (Lovenox Inj) 30 Mg/0.3 Ml Syr 30 MG SQ Q12H, #6 INJECTION Continued Medications: Aspirin (Aspirin) 81 Mg Chew 81 MG CHEW DAILY, TAB 0 Refills Cholecalciferol (Vitamin D3) 5,000 Unit Cap 5000 UNITS PO DAILY for Nutritional Supplement, #30 CAP 0 Refills Diltiazem CD 24 HR (Diltiazem CD 24 HR) 120 Mg Caper 120 MG PO DAILY, #30 CAP 0 Refills Dutasteride (Avodart) 0.5 Mg Cap 0.5 MG PO EVERY OTHER DAY for Manage Prostate Problems, #30 CAP 0 Refills Furosemide (Lasix) 20 Mg Tab 20 MG PO EVERY OTHER DAY, #30 TAB 0 Refills Levothyroxine (Levothyroxine) 100 Mcg Tab 100 MCG PO DAILY for Thyroid, #30 TAB 0 Refills Metoprolol Tartrate (Metoprolol Tartrate) 25 Mg Tab 25 MG PO Q12HR for heart, #60 TAB Oyster Shell (Oysco 500) 500 Mg Calcium (1250 Mg) Tab 2 TAB PO DAILY Warfarin (Warfarin) 6 Mg Tab 6 MG PO wed-wed-wed for Blood Clot Prevention, #30 TAB 0 Refills Warfarin (Warfarin) 3 Mg Tab 3 MG PO WEDNESDAY,,WED,WED for Blood Clot Prevention, #30 TAB 0 Refills Discontinued Medications: Prednisone (Prednisone) 5 Mg Tab 5 MG PO BID, TAB 0 Refills Maddy Whelan MD Dec 14, 2017 09:35
[2017-12-14] MEDS: ASPIRIN 81 MG CHEW TAB CHEW SCH (10:29)
[2017-12-14] MEDS: DILTIAZEM-CD 120 MG CAP ER PO SCH (10:29)
[2017-12-14] MEDS: METOPROLOL TARTRATE 25 MG TAB PO SCH (10:29)
[2017-12-14] MEDS: CHOLECALCIFEROL (VIT D3) 5000 UNIT CAP PO SCH (10:30)
[2017-12-14] MEDS: DOCUSATE SODIUM 50 MG/SENNA 8.6 MG TAB PO SCH (10:30)
[2017-12-14] MEDS: SODIUM CHLORIDE 0.9% FLUSH 10 ML FLUSH IV FLUSH SCH (10:32)
[2017-12-14 13:42] VITALS: O2SAT 95
[2017-12-14 16:00] VITALS: BP 137/80; PULSE 118; RESP 19; TEMP 97.4; O2SAT 94
== END 2017-12-14 18:22 | DRG 481 ==
LOC: PHEFT 11:07 → PHEDA 13:57 → N06B 17:54
PROVIDERS: ADMIT Family Medicine; ATTEND Family Medicine
PROC: 0QH734Z Insertion of Internal Fixation Device into Left Upper Femur, Percutaneous Approach (ICD-10-PCS; principal; 2017-12-12 11:10)
PROC: 0H9GXZZ Drainage of Left Hand Skin, External Approach (ICD-10-PCS; 2017-12-13)
DX: M84.552A Pathological fracture in neoplastic disease, left femur, initial encounter for fracture (principal); C79.51 Secondary malignant neoplasm of bone; I69.354 Hemiplegia and hemiparesis following cerebral infarction affecting left non-dominant side; I11.0 Hypertensive heart disease with heart failure; I50.9 Heart failure, unspecified; L02.512 Cutaneous abscess of left hand; C61 Malignant neoplasm of prostate; I48.2 Chronic atrial fibrillation; E03.9 Hypothyroidism, unspecified; I25.2 Old myocardial infarction; Z95.5 Presence of coronary angioplasty implant and graft; W18.39XA Other fall on same level, initial encounter; I25.10 Atherosclerotic heart disease of native coronary artery without angina pectoris; E78.00 Pure hypercholesterolemia, unspecified; L03.012 Cellulitis of left finger; T45.1X5A Adverse effect of antineoplastic and immunosuppressive drugs, initial encounter; Z79.01 Long term (current) use of anticoagulants; Z96.641 Presence of right artificial hip joint; Z79.82 Long term (current) use of aspirin; Z79.52 Long term (current) use of systemic steroids; Z90.49 Acquired absence of other specified parts of digestive tract
CPT/HCPCS: 70450; 71045; 73502; 73700; 76000; 80048; 85025; 85610; 85730; 86403; 87070; 87147; 87186; 87205; 93005; 94150; 94640; 94664; C1713; C1769; J0131; J0690; J1580; J1650; J2270; J2370; J2405; J3010; J7120